=== PATIENT | female | born 1935 | race Caucasian/White ===

== ENCOUNTER → 2016-06-19 | Outpatient (CLI) | payer MEDICARE, MEDICAID ==
[~2016-06-19] MED LIST: ALLOPURINOL100 M1 PO; AMIODARONE HCL200 MG PO; ANTIVERT12.5 MG PO; AUGMENTIN 875-1 EACH PO; CALCITRIOL 00.25 MCG PO; CALCITRIOL0.5 MCG PO; CLONIDINE HCL0.1 M1 PO; COUMADIN2 MG PO; COUMADIN3 M1 PO; COUMADIN4 MG PO; DOXYCYCLINE HY100 M4 PO; FEMARA2.5 MG PO; KEFLEX 500MG.500 MG PO; LASIX 40MG. TAB40 MG PO; LASIX 80MG. TAB80 MG PO; LEVOTHYROXIN0.112 M1 PO; LEVOTHYROXIN0.112 MG PO; LOPRESSOR 25MG.25 MG PO; MECLIZINE HYDRO25 MG PO; MEDROL 4MG. DOSE4 MG PO; METOPROLOL50 MG PO; NOLVADEX20 MG PO; POTASSIUM CHLO10 ME3 PO; PREDNICOT20 MG PO; PROCARDIA XL60 MG PO; SIMVASTATIN10 MG PO; TESSALON PERLE100 M1 PO; TETRACYCLINE H500 M1 PO; VITAMIN D1000 IU PO; WARFARIN SOD5 MG PO; ZITHROMAX 250M250 MG PO; ZYRTEC 10MG TAB10 MG PO
== END ==
LOC: ACC 10:00
DX: I48.91 Unspecified atrial fibrillation (principal); Z79.01 Long term (current) use of anticoagulants; Z51.81 Encounter for therapeutic drug level monitoring
CPT/HCPCS: G0463

== ENCOUNTER 2016-10-23 10:34 | Outpatient (CLI) | payer MEDICARE, MEDICAID | END 2016-10-23 15:51 | LOC: ACC 10:34 | DX: I48.91 Unspecified atrial fibrillation (principal); Z79.01 Long term (current) use of anticoagulants; Z51.81 Encounter for therapeutic drug level monitoring | CPT/HCPCS: G0463 ==

== ENCOUNTER 2017-01-17 12:22 | Outpatient (CLI) | payer MEDICARE, MEDICAID ==
--- NOTE | 2017-01-17 13:38 | RADIOLOGY REPORT PS360 ---
[id number] VIEWS HISTORY: Follow-up fracture FU RT HUMERUS FX ORDERING PHYSICIAN: Tru Leal MD PATIENT AGE: 81 years COMPARISON: 12/27/2016 FINDINGS: Right humeral neck fracture is present. Fracture line is somewhat more prominent than when compared to the previous study with mild separation of the fracture fragments. There is some callus formation developing laterally at the proximal humerus. Chronic deformity of the right glenohumeral joint and acromioclavicular joint is once again noted unchanged. IMPRESSION: Healing right humeral neck fracture with chronic deformity of the glenohumeral joint as before
== END 2017-01-17 15:15 ==
LOC: ACC 12:22
DX: S42.201D Unspecified fracture of upper end of right humerus, subsequent encounter for fracture with routine healing (principal); I48.91 Unspecified atrial fibrillation; Z79.01 Long term (current) use of anticoagulants; Z51.81 Encounter for therapeutic drug level monitoring
CPT/HCPCS: G0463

== ENCOUNTER 2017-02-02 11:20 | Emergency (ER) | payer MEDICARE, MEDICAID ==
[~2017-02-02] VITALS: Ht 152.4 cm; Wt 75.8 kg
--- NOTE | 2017-02-02 11:47 | Urgent Treatment Center Report ---
History of Present Issue Date/Time Seen by Provider 02/02/17 1144 Visit Reason Pt arrived:Wheelchair Presenting Problem:PT ADVISES THAT SHE FELL AT HOME THIS MORNING IN THE BATHROOM AND IS NOW C/O LT ELBOW PAIN Location if Accident:Home Onset of symptoms date/time:/ or onset unknown for:MEDICAL HX UNKNOWN Have you (or family members/close friends) recently traveled outside the [place]? N If Yes, where/when: Have you had exposure to infectious disease within the past month? TB? Other? Specify: Patient state that she was walking backwards this morning in the bathroom on her walker when she tripped and lost her balance falling and landing on left elbow Patient states that she now has a scratch on her elbow area and having pain with movement. State that she has a dialysis shunt in this arm but did not hit it instead landing directly on her left elbow now has pain when she moves it or trys to straighten it out ALLERGIES Coded Allergies: No Known Allergies (02/02/17) Home Medications Active Scripts Amoxicillin/Potassium Clav (Augmentin 875-125 Tablet) 1 EACH PO BID #20 TAB Prov: 07/29/16 Metoprolol Tartrate (Lopressor) 25 MG PO BID #60 TAB Prov: 02/24/14 Reported Medications CLONIDINE HCL (Clonidine 0.1MG) 0.1 MG PO BID Nifedipine (Procardia Xl) 60 MG PO DAILY Simvastatin 10 MG PO QHS POTASSIUM CHL (Potassium Chloride) 10 MEQ PO DAILY ALLOPURINOL (Allopurinol 100MG) 100 MG PO DAILY Levothyroxine Sodium (Levothyroxine 0.112MG) 0.112 MG PO DAILY Calcitriol 0.5 MCG PO DAILY CHOLECALCIFEROL (VITAMIN D3) (Vitamin D3) 2,000 IUNITS PO DAILY Furosemide (Lasix 40MG) 40 MG PO DAILY WARFARIN SOD (Warfarin 5MG) 5 MG PO DAILY Tamoxifen Citrate (Nolvadex) 20 MG PO DAILY History Medical History General CAD? No Angina: No HI: No Hypertension? Yes Hyperlipidemia? Yes CHF? Yes DVT? No PE? No COPD? No Asthma? No Anemia? No GERD? No Gastric ulcers? No GI Bleed? No Hernia? Yes Thyroid Problems? Yes Hypothyroidism? Yes CVA? No Seizures? No Diabetes? No Insulin Dependent: No Insulin Pump: No Home FSBS? No Renal Insuffiency? Yes UTI? Yes Stones? No BPH? No GB Disease: No Nephritic Syndrome? No Asplenia? No Hepatitis? No Sickle Cell Disease? No Arthritis? Yes Migraines? Yes Cataracts? Yes Glaucoma? No MRSA? No HIV? No TB? No Anxiety? Yes Depression? Yes Cancer? Yes Site: R BREAST More? No Additional hx: atrial fibrillation; inoperable aneurysm; valvular dysfunction. 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 CYST REMOVE FROM ABD Appendix LEFT HIP REPAIR FISTULA/SHUNT LT ARM CATARACTS BOTH EYES R MASTECTOMY Family History Family HX Diabetes No CAD No Hypertension Yes Hyperlipidemia Yes Cancer Yes TB No Social History Smoking Hx Smoker: Never Smoker Tobacco: No Alcohol Alcohol: No Review of Systems All Other Systems Reviewed and Negative Comment Pain in left elbow after falling at home this morning in the bathroom Physical Exam Vital Signs Vital Signs Date Time Temp Pulse Resp B/P Pulse O2 O2 Flow FiO2 Ox Delivery Rate 02/02 1132 97.9 79 18 164/70 98 General Appearance normal appearance, no apparent distress Respiratory Status Yes: trachea midline, chest symmetrical. No: respiratory distress. Cardiovascular no JVD, Irregular HR, patient has history of Atrial Fib Defibrilator in place Extremities Pain in left elbow area, dialysis shunt in left upper arm denies hitting the upper arm Neurologic alert, normal exam, oriented x 3 Medical Decision Making LABS/Meds/Orders Pt receiving controlled substance in ED? No Results/Orders Orders Procedure Date/time Status [facility] STABILIZE JOINT/AREA 02/02 1250 Active [facility] STABILIZE JOINT/AREA 02/02 1249 Active XRAY/CT/US XRAY/CT/US XRAY elbow XR interpretation by discussed w/radiologist Xray Results radial head fracture Consult MD Physician Consult 1 Consult/PCP Dr Moreno, orthopedic Time Called 1204 Reason Orthopedic eval/care Comments Dr Moreno in surgery spoke with office staff and advised of patient Physician Consult 2 Consult/PCP Dr Moreno called back advised to place arm in splint and have her follow up Progress [facility] Progress Notes 1 Comment Orthoglass splint placed and patient advised to follow up with Orthopedics today for appointment [facility] Progress Notes 2 Comment Offered patient medication for pain state that she has some at home and she is ok unless she moves arm and does not want anything Departure Departure Time of Disposition 1244 Disposition DC Home or Self Care(routine) Clinical Impression Primary Impression: Radial head fracture Qualifiers: Encounter type: initial encounter Fracture type: closed Fracture alignment: nondisplaced Laterality: left Qualified Code: S52.125A - Nondisplaced fracture of head of left radius, initial encounter for closed fracture Condition STABLE Referrals Elvis CAROLINA,Tru Olvera (Family): 3 Days-Call Office if needed Tez CAROLINA,Grady MORENO MD, [facility] Patient Instructions DI for Fracture Additional Instructions *RICE, Rest the extremity, Ice 15-20 minutes 3-4 times daily, Compress- wear the hussain wrap as discussed as much as possible to help reduce swelling and pain, Elevate the extremity when at rest *Hussain wrap is for support and help control swelling, use it except in the shower. Be sure that is not to tight but not to loose either *Elevate when resting *Ibuprofen 600-800mg every 6-8 hours as needed for pain an inflammation. If need something more can take Tylenol in between doses of Ibuprofen to help Immediately follow up for new or worsening of symptoms, or no noticeable improvement over the next 3-5 days Discharge Counseling Counseled pt/family regarding diagnosis, test results, home care, follow up needs at 1255
--- NOTE | 2017-02-02 11:47 | Urgent Treatment Center Report ---
History of Present Issue Date/Time Seen by Provider 02/02/17 1144 Visit Reason Pt arrived:Wheelchair Presenting Problem:PT ADVISES THAT SHE FELL AT HOME THIS MORNING IN THE BATHROOM AND IS NOW C/O LT ELBOW PAIN Location if Accident:Home Onset of symptoms date/time:/ or onset unknown for:MEDICAL HX UNKNOWN Have you (or family members/close friends) recently traveled outside the [place]? N If Yes, where/when: Have you had exposure to infectious disease within the past month? TB? Other? Specify: Patient state that she was walking backwards this morning in the bathroom on her walker when she tripped and lost her balance falling and landing on left elbow Patient states that she now has a scratch on her elbow area and having pain with movement. State that she has a dialysis shunt in this arm but did not hit it instead landing directly on her left elbow now has pain when she moves it or trys to straighten it out ALLERGIES Coded Allergies: No Known Allergies (02/02/17) Home Medications Active Scripts Amoxicillin/Potassium Clav (Augmentin 875-125 Tablet) 1 EACH PO BID #20 TAB Prov: 07/29/16 Metoprolol Tartrate (Lopressor) 25 MG PO BID #60 TAB Prov: 02/24/14 Reported Medications CLONIDINE HCL (Clonidine 0.1MG) 0.1 MG PO BID Nifedipine (Procardia Xl) 60 MG PO DAILY Simvastatin 10 MG PO QHS POTASSIUM CHL (Potassium Chloride) 10 MEQ PO DAILY ALLOPURINOL (Allopurinol 100MG) 100 MG PO DAILY Levothyroxine Sodium (Levothyroxine 0.112MG) 0.112 MG PO DAILY Calcitriol 0.5 MCG PO DAILY CHOLECALCIFEROL (VITAMIN D3) (Vitamin D3) 2,000 IUNITS PO DAILY Furosemide (Lasix 40MG) 40 MG PO DAILY WARFARIN SOD (Warfarin 5MG) 5 MG PO DAILY Tamoxifen Citrate (Nolvadex) 20 MG PO DAILY History Medical History General CAD? No Angina: No RI: No Hypertension? Yes Hyperlipidemia? Yes CHF? Yes DVT? No PE? No COPD? No Asthma? No Anemia? No GERD? No Gastric ulcers? No GI Bleed? No Hernia? Yes Thyroid Problems? Yes Hypothyroidism? Yes CVA? No Seizures? No Diabetes? No Insulin Dependent: No Insulin Pump: No Home FSBS? No Renal Insuffiency? Yes UTI? Yes Stones? No BPH? No GB Disease: No Nephritic Syndrome? No Asplenia? No Hepatitis? No Sickle Cell Disease? No Arthritis? Yes Migraines? Yes Cataracts? Yes Glaucoma? No MRSA? No HIV? No TB? No Anxiety? Yes Depression? Yes Cancer? Yes Site: R BREAST More? No Additional hx: atrial fibrillation; inoperable aneurysm; valvular dysfunction. 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 CYST REMOVE FROM ABD Appendix LEFT HIP REPAIR FISTULA/SHUNT LT ARM CATARACTS BOTH EYES R MASTECTOMY Family History Family HX Diabetes No CAD No Hypertension Yes Hyperlipidemia Yes Cancer Yes TB No Social History Smoking Hx Smoker: Never Smoker Tobacco: No Alcohol Alcohol: No Review of Systems All Other Systems Reviewed and Negative Comment Pain in left elbow after falling at home this morning in the bathroom Physical Exam Vital Signs Vital Signs Date Time Temp Pulse Resp B/P Pulse O2 O2 Flow FiO2 Ox Delivery Rate 02/02 1132 97.9 79 18 164/70 98 General Appearance normal appearance, no apparent distress Respiratory Status Yes: trachea midline, chest symmetrical. No: respiratory distress. Cardiovascular no JVD, Irregular HR, patient has history of Atrial Fib Defibrilator in place Extremities Pain in left elbow area, dialysis shunt in left upper arm denies hitting the upper arm Neurologic alert, normal exam, oriented x 3 Medical Decision Making LABS/Meds/Orders Pt receiving controlled substance in ED? No Results/Orders Orders Procedure Date/time Status [facility] STABILIZE JOINT/AREA 02/02 1250 Active [facility] STABILIZE JOINT/AREA 02/02 1249 Active XRAY/CT/US XRAY/CT/US XRAY elbow XR interpretation by discussed w/radiologist Xray Results radial head fracture Consult MD Physician Consult 1 Consult/PCP Dr Moreno, orthopedic Time Called 1204 Reason Orthopedic eval/care Comments Dr Moreno in surgery spoke with office staff and advised of patient Physician Consult 2 Consult/PCP Dr Moreno called back advised to place arm in splint and have her follow up Progress [facility] Progress Notes 1 Comment Orthoglass splint placed and patient advised to follow up with Orthopedics today for appointment [facility] Progress Notes 2 Comment Offered patient medication for pain state that she has some at home and she is ok unless she moves arm and does not want anything Departure Departure Time of Disposition 1244 Disposition DC Home or Self Care(routine) Clinical Impression Primary Impression: Radial head fracture Qualifiers: Encounter type: initial encounter Fracture type: closed Fracture alignment: nondisplaced Laterality: left Qualified Code: S52.125A - Nondisplaced fracture of head of left radius, initial encounter for closed fracture Condition STABLE Referrals Elvis CAROLINA,Tru Olvera (Family): 3 Days-Call Office if needed Tez CAROLINA,Grady MORENO MD, [facility] Patient Instructions DI for Fracture Additional Instructions *RICE, Rest the extremity, Ice 15-20 minutes 3-4 times daily, Compress- wear the hussain wrap as discussed as much as possible to help reduce swelling and pain, Elevate the extremity when at rest *Hussain wrap is for support and help control swelling, use it except in the shower. Be sure that is not to tight but not to loose either *Elevate when resting *Ibuprofen 600-800mg every 6-8 hours as needed for pain an inflammation. If need something more can take Tylenol in between doses of Ibuprofen to help Immediately follow up for new or worsening of symptoms, or no noticeable improvement over the next 3-5 days Discharge Counseling Counseled pt/family regarding diagnosis, test results, home care, follow up needs at 1259
--- NOTE | 2017-02-02 12:07 | RADIOLOGY REPORT PS360 ---
ELBOW-LT-3 VIEWS COMPARISON: None HISTORY: Left elbow pain after a fall in the bathroom TECHNIQUE: AP lateral and oblique views FINDINGS: There is generalized osteopenia. There is a fracture of the radial head with only minor displacement. The supracondylar humerus is normal and the olecranon fossa appears normal. IMPRESSION: Radial head fracture along with underlying generalized osteopenia
[2017-02-02 13:31] VITALS: BP 164/70
--- OUTSIDE RECORDS SUMMARY | 2017-02-09 03:58 | External Medical Summary Rpt | CCD ---
Author Author , ANISHA Organization ANISHA Address Unknown Phone [email or web address] Care Team Providers Care Air Technician Name Role Phone A Blessing KENDALL MD PSC, A Unavailable Unavailable Blessing KENDALL MD PSC ATKINS, ATKINS Unavailable Unavailable ATKINS COL, ATKINS Unavailable Unavailable COL ATKINS COL, ATKINS Unavailable Unavailable COL SANJIV LJ, Unavailable Unavailable SANJIV LJ SANJIV LJ, Unavailable Unavailable SANJIV LJ DENNIS ALL, DENNIS ALL Unavailable Unavailable BROWN CAT, BROWN CAT Unavailable Unavailable BUTROS PATITO, BUTROS Unavailable Unavailable PATITO MARC PAOLO, Unavailable Unavailable MARC PAOLO MARC PAOLO, Unavailable Unavailable MARC PAOLO HERMAN DON, HERMAN Unavailable Unavailable DON [facility] [place] [place] [facility] [place] [facility] Unavailable Unavailable [facility]OCIATES, [facility] FIELD AMB, FIELD AMB Unavailable Unavailable FRYMAN, FRYMAN Unavailable Unavailable FRYMAN EUG, FRYMAN Unavailable Unavailable EUG MALCOLM DEANDRE, MALCOLM Unavailable Unavailable DEANDRE [facility], [facility] Unavailable Unavailable INC [facility], [facility] Unavailable Unavailable [facility] Unavailable Unavailable INC, [facility] HARWARD SHASHA, HARWARD Unavailable Unavailable SHASHA [facility], Unavailable Unavailable [facility] SPANGLER, SPANGLER Unavailable Unavailable [facility] Unavailable Unavailable [facility], [facility] KILPELA JEA, KILPELA Unavailable Unavailable JEA KILPECLAUDETTE JEA, KILPELA Unavailable Unavailable VERONICA De Los Santos MD, Unavailable Unavailable Patricia De Los Santos MD [facility] N[facility] Unavailable Unavailable PRACTITIONER GR, [facility] PRACTITION[facility] Unavailable Unavailable LABORATO, [facility] REBEL, REBEL Unavailable Unavailable REBEL JUDY, REBEL Unavailable Unavailable JUDY SATHISH QUILES MAIR, Unavailable Unavailable SATHISH Romero [facility] Unavailable Unavailable ASSOCIAT, [facility] Unavailable Unavailable [facility], [facility] Unavailable Unavailable PSC, [facility] PSC WILKERSON TER, WILKERSON Unavailable Unavailable TER [facility], Unavailable Unavailable PLL[facility], [facility] COLTON FOUZIA, COLTON Unavailable Unavailable FOUZIA COLTON FOUZIA, COLTON Unavailable Unavailable FOUZIA LOISTINYesi, ESVINI Unavailable Unavailable SARTINI J, SARTINI J Unavailable Unavailable SARTINI STEVE, SARTINI Unavailable Unavailable STEVE [facility] Unavailable Unavailable EQUIP. L, [facility] Unavailable Unavailable EQUIP. L, [facility] Un[facility], Unavailable Unavailable [facility] STONE, STONE Unavailable Unavailable STONE LIBRADO, STONE LIBRADO Unavailable Unavailable [facility] Unavailable Unavailable [facility], [facility] Unavailable Unavailable ASSOCIATES P, [facility], Unavailable Unavailable [facility] MCDANIELS, MCDANIELS Unavailable Unavailable MCDANIELS BRITTNEY, MCDANIELS BRITTNEY Unavailable Unavailable MCDANIELS BRITTNEY, MCDANIELS BRITTNEY Unavailable Unavailable WELLS FREYA, JUDITH FREYA Unavailable Unavailable WEST ST[facility], [facility] Unavailable Unavailable KENDALL A, KENDALL A Unavailable Unavailable KENDALL, A C, KENDALL, Unavailable Unavailable A C Purpose Continuity of Care Document - 02-03-2008 through 2016 Problems Code Diagnosis DOS Provider Status N184 CHRONIC 11-01-2016 [facility] STAGE 4 SEVERE [id number] STENOSIS 11-01-2016 [facility] PROSTH [facility]VC IMPL [facility]OC[facility] & GRAFT INIT ENC I4891 UNSPECIFIED 10-23-2016 [facility] ATRIAL [facility] FIBRILLATIO INC N Z5181 ENCOUNTER 10-23-2016 [facility] FOR [facility] THERAPEUTIC INC DRUG LEVEL MONITORING Z7901 PRISON 10-23-2016 [facility] CURRENT USE [facility] OF INC ANTICOAGULA NTS E039 HYPOTHYROID 09-08-2016 [facility] ISM PHYSICIANS UNSPECIFIED GROUP N189 CHRONIC 09-08-2016 [facility] KIDNEY PHYSICIANS DISEASE GROUP UNSPECIFIED N289 DISORDER OF 09-08-2016 [facility] KIDNEY AND PHYSICIANS URETER GROUP UNSPECIFIED B79363 OTHER LONG 09-08-2016 [facility] TERM [facility] CURRENT INC DRUG THERAPY Z61711 MALIGNANT 08-17-2016 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 U32424 PRISON 08-17-2016 NEW [facility] PSC RECEPTOR MODULATORS E785 HYPERLIPIDE 08-01-2016 [facility] ZANDER PHYSICIANS UNSPECIFIED GROUP I10 ESSENTIAL 08-01-2016 [facility] PRIMARY PHYSICIANS HYPERTENSIO GROUP N L299 PRURITUS 08-01-2016 [facility] UNSPECIFIED PHYSICIANS GROUP I517 CARDIOMEGAL 07-29-2016 [facility] J069 ACUTE UPPER 07-29-2016 [facility] INFECTION UNSPECIFIED R0981 NASAL 07-29-2016 [facility] I129 HYPERTENSIV 07-03-2016 [facility] CKD SERV W/STAGE 1-4 FOUNDATION CKD OR UNS CKD I509 HEART 07-03-2016 [facility] FAILURE [facility] UNSPECIFIED [facility]OUNDATION M810 AGE-RELATED 07-03-2016 [facility] OSTEOPOROSI [facility] S W/O CURRNT PATH FX N183 CHRONIC 07-03-2016 [facility] DISEASE [facility] STAGE 3 MODERATE N250 RENAL 07-03-2016 [facility] OSTEODYSTRO SERV PHY [facility] I272 OTHER 06-01-2016 [facility] PSC HYPERTENSIO N 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 [facility] PSC DISORDER UNSPECIFIED I482 CHRONIC 06-01-2016 NEW ATRIAL [facility] FIBRILLATIO [facility]IC [facility] N R931 ABNORMAL 06-01-2016 NEW FINDINGS ON [facility] DX [facility] PSC HEART & COR CIRC R0602 SHORTNESS 05-24-2016 [facility] OF BREATH [facility] INC R05 COUGH 02-12-2016 [facility] R079 CHEST PAIN 02-12-2016 [facility]PEC[facility]IED [facility] Z23 ENCOUNTER 02-10-2016 NEW FOR [facility] IMMUNIZATIO CLINIC PSC N E8770 FLUID 12-13-2015 [facility] OVERLOAD SERV UNSPECIFIED FOUNDATION H109 UNSPECIFIED 12-06-2015 [facility] PHYSICIANS CONJUNCTIVI GROUP TIS D649 ANEMIA 12-01-2015 [facility] UNSPECIFIED MEM [facility] INC E559 VITAMIN D 12-01-2015 [facility] DEFICIENCY [facility] UNSPECIFIED INC N186 END STAGE 10-27-2015 [facility] Z992 DEPENDENCE 10-27-2015 [facility] X43000 MALIGNANT 08-26-2015 [facility] NEOPLASM UNS SITE UNS FEMALE BREAST J209 ACUTE 05-27-2015 [facility] BRONCHITIS PHYSICIANS UNSPECIFIED GROUP R7881 BACTEREMIA 05-27-2015 [facility] J441 CHRONIC 05-24-2015 [facility] OBSTRUCTIVE PHYSICIANS PULMONARY GROUP DZ W/EXACERBAT ION R0902 HYPOXEMIA 05-24-2015 [facility] J440 COPD WITH 05-21-2015 [facility] ACUTE LOWER [facility] INC RESPIRATORY INFECTION J302 OTHER 02-14-2015 [facility] SEASONAL [facility] ALLERGIC INC RHINITIS R42 DIZZINESS 02-14-2015 [facility] AND [facility] GIDDINESS INC 1749 MALIGNANT 11-17-2014 [facility] NEOPLASM OF BREAST UNSPECIFIED SITE 2330 CARCINOMA 11-16-2014 NEW IN SITU OF [facility] PSC 2724 OTHER AND 11-11-2014 [facility] UNSPECIFIED HOSPITAL HYPERLIPIDE ZANDER 78981 ATRIAL 11-11-2014 [facility] FIBRILLATIO [facility] N 4280 CONGESTIVE 11-11-2014 [facility] FAILURE UNSPECIFIED 490 BRONCHITIS 11-11-2014 [facility] SPECIFIED ACUTE OR CHRONIC 49197 UNSPECIFIED 11-11-2014 [facility] ARTHROPATHY SITE UNSPECIFIED 60158 UNSPECIFIED 11-11-2014 [facility] OSTEOPOROSI S V5869 LONG-TERM 11-11-2014 [facility] (CURRENT) HOSPITAL USE OF OTHER MEDICATIONS 4011 ESSENTIAL 11-03-2014 NEW HYPERTENSIO [facility] N, BENIGN [facility]IN[facility] PSC 7823 EDEMA 11-03-2014 NEW [facility] PSC 7852 UNDIAGNOSED 11-03-2014 NEW CARDIAC [facility] 51080 SHORTNESS 11-03-2014 NEW OF BREATH [facility] PSC V5861 LONG-TERM 11-03-2014 NEW (CURRENT) [facility] USE OF CLINIC [facility] ANTICOAGULA NTS V6751 F/U EXAM 11-03-2014 NEW FOLLOW CMPL [facility] PSC W/HIGH-RISK MED NEC 30855 LUMP OR 10-07-2014 [facility] MASS IN MEM [facility] BREAST INC 95359 OTHER 10-07-2014 [facility] ABNORMAL [facility]ICAL FINDING [facility]AGING ASS RADIOLOGICA L EXAM BREAST V5883 ENCOUNTER 08-18-2014 Natacha LOPEZ MD [facility] THERAPEUTIC DRUG MONITORING 82095 OTHER 06-09-2014 [facility] NONSPECIFIC MEDICAL ABNORMAL IMAGING ASS FINDING OF LUNG FIELD V4611 DEPENDENCE 06-09-2014 [facility] RESPIRATOR IM[facility]ING ASS STATUS 55711 ALTERED 06-08-2014 [facility] MENTAL MEDICAL STATUS IMAGING ASS V5882 ENCOUNTER 06-08-2014 [facility] FITTING&ADJ [facility]ICAL [facility]ING [facility] NON-VASCULA R CATHETER NEC 486 PNEUMONIA, 06-04-2014 [facility] ORGANISM MEDICAL UNSPECIFIED IMAGING ASS 49918 HTN CKD UNS 06-03-2014 [facility] W/CKD [facility] STAGE I INC THRU STAGE IV/UNS 45982 CORONARY 06-03-2014 [facility] 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 4820 PNEUMONIA 06-03-2014 [facility] DUE TO MEM HOS[facility] KLEBSIELLA INC PNEUMONIAE 20017 ACUTE 06-03-2014 [facility] RESPIRATORY [facility] FAILURE INC 5849 ACUTE 06-03-2014 [facility] KIDNEY [facility] FAILURE INC UNSPECIFIED 5854 CHRONIC 06-03-2014 [facility]NEY [facility] DISEASE INC STAGE IV (SEVERE) 7862 COUGH 06-03-2014 [facility] 7869 OTH 06-03-2014 [facility] SYMPTOMS MEDICAL INVOLVING IMAGING ASS RESPIRATORY SYSTEM&CHES T [address]791 UNSPECIFIED 02-22-2014 [facility] VENOUS [facility] INSUFFICIEN INC CY 5939 UNSPECIFIED 02-22-2014 [facility] DISORDER N EMERGENCY OF KIDNEY PHYS AND URETER 7079 CHRONIC 02-22-2014 [facility] ULCER OF MEM HOSP UNSPECIFIED INC SITE 6829 CELLULITIS 01-23-2014 A Blessing KENDALL AND ABSCESS PSC OF UNSPECIFIED SITE 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 7804 DIZZINESS 03-30-2013 JUDITH PILLAI AND PAMELA 70744 ULCER OF 01-29-2013 [facility] CALF [facility] INC V571 OTHER 01-29-2013 [facility] THERAPY INC 92655 NUCLEAR 01-21-2013 [place] [address] DIAB W/O 12-18-2012 A Blessing KENDALL COMP TYPE PSC II/UNS NOT STATED UNCNTRL 2449 UNSPECIFIED 11-11-2012 Natacha KENDALL MD [facility] HYPOTHYROID ISM 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 KILPELA JEA HYPERLIPIDE ZANDER 7295 PAIN IN 05-16-2012 [facility] SOFT [facility] TISSUES OF INC LIMB 14118 SWELLING OF 05-16-2012 MARC LIMB PAOLO 4829 UNSPECIFIED 05-03-2012 KILPECLAUDETTE BELLEA BACTERIAL PNEUMONIA 4619 ACUTE 02-16-2012 [facility] SINUSITIS, MEM HOSP UNSPECIFIED INC 70376 JAW PAIN 02-16-2012 [facility] INC 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 L SITE 86126 OTHER 07-07-2010 [facility] MALAISE AND HOME MED FATIGUE EQUIP. L 7812 ABNORMALITY 07-07-2010 [facility] OF GAIT HOME MED EQUIP. L 9961 MECH COMP 06-20-2010 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 V7281 PRE-OPERATI 12-07-2009 NEW VE [facility] CARDIOVASCU CLINIC [facility] LAR EXAMINATION V7283 OTHER 12-01-2009 [facility] SPECIFIED SURGICAL PRE-OPERATI ASSOCIATES VE EXAMINATION 12188 HYPERPARATH 11-30-2009 [facility] YROIDISM PRIMARY UNSPECIFIED CARE [facility]YLER 5853 CHRONIC 11-05-2009 [facility]NEY [facility] DISEASE INC STAGE III (MODERATE) 586 UNSPECIFIED 11-05-2009 [facility]ICAL FAILURE IMAGING ASS 4409 GENERALIZED 11-02-2009 MEANS ADULT AND PRIMARY UNSPECIFIED CARE [facility] ATHEROSCLER OSIS 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 LEG&ANK WITHOUT MENTION COMP 4536 VENOUS EMBO 07-22-2009 [place] [facility] SUPERFICIAL VES LOWR EXTREM 8911 OPEN WOUND 07-22-2009 [facility] LEG HOSPITAL AND ANKLE COMPLICATED 70028 COMPLETE 06-07-2009 [place] [facility] RUPTURE OF SERV ROTATOR FOUNDATIO CUFF 97248 ULCER OF 05-27-2009 [facility] UNSPECIFIED 75666 SENILE 05-14-2009 [facility] OSTEOPOROSI MEM HOSP S INC 6959 UNSPECIFIED 05-13-2009 [facility] ERYTHEMATOU S CONDITION 13795 ULCER OF 04-01-2009 [place] [facility] SSD 4659 ACUTE URIS 02-03-2008 Natacha JO PSC UNSPECIFIED SITE Allergies, Adverse Reactions, Alerts Type Drug Allergy Adverse Reaction to Substance Substance Reaction Severity No Known Allergies - Unknown Unknown Nka Medications Na ND Rx Da Fi Fi Am Da Di Ph RX Ph St me C No te ll ll ou ys ag ar # ys at rm s nt no ma ic us Or Da si cy ia de te s n re d SO 00 12 0 No DI 40 -0 UM 97 1- Lo 98 20 ng CH 30 13 er LO 9 RI Ac DE ti ve 0. 9% SO MAYNOR TI ON Sa 63 12 0 No li 80 -0 ne 70 1- Lo 10 20 ng Fl 07 13 er us 5 h Ac 10 ti ML ve Sy ri ng e Immunization Name Date Rout CVX Reac Dose Comm Prov Is Faci e tion ent ider Refu lity Give sed n IIV4 10-1 158 LIDD No NEW 3-20 LE NAFISA VACC 16 JUDY NGTO N SPLI CLIN T IC VIRU PSC S 0.5 ML DOS FOR IM USE Vital Signs 03-30-2013 12:31 Name Value Interpretat Reference Comment ion Range BP 93 mm[Hg] Diastolic BP Systolic 170 mm[Hg] Heart 58 /min Rate/Pulse O2% 99 % Respiratory 20 /min Rate 03-30-2013 09:44 Name Value Interpretat Reference Comment ion Range BP 57 mm[Hg] Diastolic BP Systolic 119 mm[Hg] Heart 65 /min Rate/Pulse O2% 98 % Respiratory 20 /min Rate Results Labs Lab Lab Date Result Refere Interp Status Commen Order Detail nces retati t Range on BASIC METABOLIC PANEL (03-30-2013 09:40) Glucose 115 74-106 complet 013 mg/dL ed Bld-mCn 09:40 c BUN 33 7-18 complet Bld-mCn 013 mg/dL ed c 09:40 Creat 2.1 0.6-1.0 complet SerPl-m 013 mg/dL ed Cnc 09:40 Creat 30 50-200 complet Cl 013 ML/MIN ed predict 09:40 ed SerPl C-G-vRa te GFR/BSA 23 59- complet .pred 013 ML/MIN ed SerPl 09:40 Schwart z-vRate Sodium 142 136-145 complet SerPl-s 013 mmoL/L ed Cnc 09:40 Potassi 4.3 3.5-5.1 complet um 013 mmoL/L ed SerPl-s 09:40 Cnc Chlorid 106 98-107 complet e 013 mmoL/L ed SerPl-s 09:40 Cnc CO2 32 21.0-32 complet SerPl-s 013 mmoL/L .0 ed Cnc 09:40 Calcium 8.0 8.5-10. complet 013 mg/dL 1 ed SerPl-m 09:40 Cnc CBC with AUTO DIFF (03-30-2013 09:40) WBC # 03-30-2 3.9 4.8-10. complet Bld 013 K/MM3 8 ed Auto 09:40 RBC # 03-30-2 3.85 4.2-5.4 complet Bld 013 M/mm3 ed Auto 09:40 Hgb 11.4 12.2-16 complet Bld-mCn 013 g/dL .2 ed c 09:40 Hct Fr 36.6 % 37.0-47 complet Bld 013 .0 ed 09:40 MCV RBC 95.0 fl 82.2-97 complet 013 .8 ed 09:40 MCH RBC 29.6 pg 27-31.2 complet Qn 013 ed Auto 09:40 MEAN 31.2 31.8-35 complet CORPUSC 013 g/dl .4 ed ULAR 09:40 HGB CONC RDW RBC 17.9 % 11.5-17 complet Auto 013 .5 ed 09:40 Platele 234 142-424 complet t Bld 013 K/mm3 ed Ql 09:40 Manual MEAN 12-01-2 7.6 fl 7.4-10. complet PLATELE 013 4 ed T 09:40 VOLUME Granulo 64.4 % 37.0-80 complet cytes 013 .0 ed Fr Bld 09:40 Auto LYMPH % 03-30-2 27.4 % 10-50.0 complet 013 ed 09:40 Monocyt 03-30-2 6.3 % 1.7-9.3 complet es Fr 013 ed Bld 09:40 Auto Eosinop 03-30-2 1.6 % 0.1-12. complet hil Fr 013 0 ed Bld 09:40 Auto Basophi 2 0.3 % 0.1-2.0 complet ls Fr 013 ed Bld 09:40 Auto Granulo 03-30-2 2.5 1.8-7.8 complet cytes # 013 K/mm3 ed Bld 09:40 Auto Lymphoc 2 1.1 0.7-4.5 complet ytes Fr 013 K/mm3 ed Bld 09:40 Auto Monocyt 03-30-2 0.3 0.1-1.0 complet es # 013 K/mm3 ed Bld 09:40 Auto Eosinop 03-30-2 0.1 0.0-0.4 complet hil # 013 K/mm3 ed Bld 09:40 Auto Basophi 03-30-2 0.0 0-0.2 complet ls # 013 K/MM3 ed Bld 09:40 Auto Procedures Procedure DOS Code Location Performer Comment DUPLEX 55584 MAY DICKERSON SCAN 7 SURGICAL HEMODIALY ASSOCIATE SIS S ACCESS PROTHROMB 36182 [facility] IN TIME 7 [facility] INC INC HOSPITAL G0463 [facility] OUTPATIEN 7 [facility] T CLIN INC INC VISIT ASSESS & MGMT PT HOSPITAL G0463 [facility] OUTPATIEN 7 [facility] T CLIN INC INC VISIT ASSESS & MGMT PT PROTHROMB 46847 [facility] IN TIME 7 [facility] INC INC BLOOD 25909 [facility] COUNT 7 [facility]OS[facility] COMPLETE INC INC AUTO&AUTO DIFRNTL WBC COMPREHEN 39336 [facility] SIVE 7 [facility] [place] [address] [facility] NICHOLEON FREE 7 [facility] [place] [address] [facility] THYROID 7 [facility] STIMULATI INC INC NG HORMONE TSH LIPID 03068 [facility] PANEL 7 [facility] INC INC PROTHROMB 77072 [place] IN TIME 7 [facility]IC CLINIC LABORATO LABORATO COLLECTIO 78618 [place] N VENOUS 7 CLINIC CLINIC BLOOD LABORATO LABORATO VENIPUNCT URE BLOOD 74613 [place] COUNT 7 CLINIC CLINIC COMPLETE LABORATO LABORATO AUTO&AUTO DIFRNTL WBC COMPREHEN 93019 [place] SIVE 7 CLINIC CLINIC METABOLIC LABORATO LABORATO PANEL RADIOLOGI 06495 [facility] C 7 [facility] EXAMINATI INC INC ON CHEST [facility] [facility] G0463 [facility] OUTPATIEN 7 MEM [facility] MEM [facility]OS[facility] T CLIN INC INC VISIT ASSESS & MGMT PT PROTHROMB 10230 [facility] IN TIME 7 [facility]OS[facility] INC INC COLLECTIO 33237 [facility] N VENOUS 7 MEM H[facility] MEM [facility]OS[facility] BLOOD INC INC VENIPUNCT URE BLOOD 19627 [facility] COUNT 7 [facility] MEM [facility]OS[facility] COMPLETE INC INC AUTO&AUTO DIFRNTL WBC CALCIUM 20366 [facility] IONIZED 7 [place] [address] [facility] PARATHORM 7 MEM H[facility] ONE INC INC RENAL 26948 [facility] FUNCTION 7 [facility] PANEL INC INC 25 74075 [facility] HYDROXY 7 MEM H[facility] INCLUDES INC INC FRACTIONS IF PERFORMED HOSPITAL G0463 [facility] OUTPATIEN 7 MEM H[facility] MEM HOS[facility] T CLIN INC INC VISIT ASSESS & MGMT PT PROTHROMB 11452 [facility] IN TIME 7 [facility] MEM HOSP INC INC PROTHROMB 43738 [facility] IN TIME 7 [facility] INC INC HOSPITAL G0463 [facility] OUTPATIEN 7 MEM H[facility] MEM [facility]OS[facility] T CLIN INC INC VISIT ASSESS & MGMT PT ECHO 59019 [facility] TTHRC R-T 7 MEM HOSP MEM HOS[facility] 2D INC INC W/WOM-MOD E COMPL SPEC&COLR D LIPID 12057 ROBYN [facility] PANEL 7 [place] [address] [place] [facility] TROPONIN 7 MEM H[facility] MEM [facility]OS[facility] QUANTITAT INC INC EMILIA PROTHROMB 86628 [facility] IN TIME 7 [facility] INC INC CREATINE 61423 [facility] KINASE 7 MEM HOSP MEM HOSP TOTAL INC INC BLOOD 16654 [facility] COUNT 7 MEM H[facility] COMPLETE INC INC AUTO&AUTO DIFRNTL WBC COMPREHEN 50512 ROBYNSADIA CARLS[facility] SIVE 7 MEM HOSP MEM HOSP METABOLIC INC INC PANEL CREATINE 31670 [facility] KINASE MB 7 MEM HOSP [place] [address] [facility] THYROID 7 [facility] STIMULATI INC INC NG HORMONE TSH COLLECTIO 38643 ROBYN ROBYN N VENOUS 7 [facility] [place] [address] ROB[facility] FREE 7 MEM HOSP MEM HOSP THYROXINE INC INC PROTHROMB 03868 ROBYN NICHOLEON IN TIME 6 MEM HOSP MEM HOSP INC INC HOSPITAL G0463 ROB[facility] CAR[facility] OUTPATIEN 6 MEM HOSP MEM HOSP T CLIN INC INC VISIT ASSESS & MGMT PT HOSPITAL G0463 ROBYN ROBNY OUTPATIEN 6 MEM HOSP MEM HOSP T CLIN INC INC VISIT ASSESS & MGMT PT PROTHROMB 42144 [facility] IN TIME 6 MEM H[facility] MEM HOSP INC INC ECG 48585 NEW NEW ROUTINE 6 [facility] CLINIC CLINIC W/LEAST PSC PSC 12 [facility] G0463 [facility] OUTPATIEN 6 MEM HOSP MEM [facility]OS[facility] T CLIN INC INC VISIT ASSESS & MGMT PT PROTHROMB 06229 [facility] IN TIME 6 MEM H[facility]OS[facility] INC INC RADIOLOGI 45956 ASHKAN TRAN C 6 MEDICAL PAOLO EXAMINATI IMAGING ON CHEST ASS SINGLE VIEW FRONTAL IIV4 VACC 31855 NEW REBEL SPLIT 6 DENAE JUDY VIRUS 0.5 CLINIC ML DOS PSC FOR IM USE PROTHROMB 62412 DENAE PHILIPPE IN TIME 6 CLINIC CLINIC LABORATO LABORATO ADMINISTR G0008 NEW REBEL ATION OF 6 [place] JUDY INFLUENZA CLINIC VIRUS PSC VACCINE COLLECTIO 47350 [facility] PHILIPPE N VENOUS 6 CLINIC CLINIC BLOOD LABORATO LABORATO VENIPUNCT URE COMPREHEN 23298 [facility] PHILIPPE SIVE 6 CLINIC CLINIC METABOLIC LABORATO LABORATO PANEL BLOOD 45608 DENA[facility] PHILIPPE COUNT 6 CLINIC [facility] COMPLETE LABORATO LABORATO AUTO&AUTO DIFRNTL WBC PROTHROMB 79959 [facility] [id number] [facility] OUTPATIEN 6 [facility] VISIT ASSESS & MGMT PT HOSP[facility] G0463 [facility] OUTPATIEN [facility] INC VISIT ASSESS & MGMT PT PROTHROMB [id number] [facility] IN TIME 6 [facility] INC BREAST L8000 GROGANS GROGANS PROS 6 INC INC MASTECTOM Y BRA W/O INTEG PROS FORM PROTHROMB 77830 [facility] IN TIME 6 [facility] G0463 [facility] OUTPATIEN 6 [facility] INC VISIT ASSESS & MGMT PT LIPID 89689 [facility] PANEL [facility] INC PROTHROMB 07918 [facility] IN TIME 6 [facility] INC COLLECTIO 51213 [facility] N VENOUS 6 [facility] [place] [address] [facility] THYROID 6 [facility] STIMULATI INC INC NG HORMONE TSH BLOOD 61820 [facility] COUNT 6 [facility] COMPLETE INC INC AUTO&AUTO DIFRNTL WBC COMPREHEN 11849 [facility] SIVE 6 [facility] [place] [address] [facility] FREE 6 [facility] [place] [address] [facility] BLOOD/URI 6 [facility] C ACID INC INC CALCIUM 47860 [facility] IONIZED 6 [facility] INC INC CREATININ 19063 [facility] E OTHER 6 [facility] SOURCE INC INC COLLECTIO 27359 [facility] N VENOUS 6 [facility] BLOOD INC INC VENIPUNCT URE CULTURE 12228 [facility] BACTERIAL 6 [facility] INC INC QUANTTATI VE COLONY COUNT URINE [facility] G0463 [facility] OUTPATIEN 6 [facility] T CLIN INC INC VISIT ASSESS & MGMT PT PROTHROMB 16016 [facility] IN TIME 6 [place] [address] [facility] PARATHORM 6 [facility] ONE INC INC PROTEIN 20598 [facility] XCPT 6 [facility] REFRACTOM INC INC ETRY SERUM PLASMA/WH L BLD BLOOD 33587 [facility] COUNT 6 [facility] COMPLETE INC INC AUTO&AUTO DIFRNTL WBC URNLS DIP 85678 [facility] 6 [facility] STICK/TAB INC INC LET REAGENT AUTO MICROSCOP Y RENAL 34981 ROBYN [facility] PANEL INC INC 25 [id number] ROB[facility] HYDROXY 6 [facility] INCLUDES INC INC FRACTIONS IF PERFORMED HOSPITAL G0463 [facility] OUTPATIEN 6 [facility]IN INC INC VISIT ASSESS & MGMT PT PROTHROMB 90365 [facility] IN TIME 6 [facility] INC INC DXA BONE 72562 ROB[facility] DENSITY 6 [facility] STUDY 1/> INC INC SITES AXIAL SKEL DUPLEX 52162 [facility] 6 SURGICAL SURGICAL HEMODIALY ASSOCIATE ASSOCIATE [facility] G0463 ROBYN [facility] OUTPATIEN 6 [facility] T CLIN INC INC VISIT ASSESS & MGMT PT PROTHROMB 75545 [facility] IN TIME 6 [facility] INC INC PROTHROMB 86443 [facility] IN TIME 6 [facility] INC INC BLOOD 03455 [facility] COUNT 6 [facility] COMPLETE INC INC AUTO&[place] [address] [facility] THYROXINE 6 [facility] TOTAL INC INC COMPREHEN 68536 [facility] SIVE 6 [facility] METABOLIC INC INC PANEL COLLECTIO 09214 ROB[facility] N VENOUS 6 [facility] [place] [address] ROB[facility] THYROID 6 [facility] STIMULATI INC INC NG HORMONE TSH LIPID 28608 ROBYN [facility] PANEL 6 [facility] INC INC 1 25 02970 ROBYN [facility] DIHYDROXY 6 [facility] INCLUDES INC INC FRACTIONS IF PERFORMED HOSPITAL G0463 ROB[facility] OUTPATIEN 6 [facility] T CLIN INC INC VISIT ASSESS & MGMT PT PROTHROMB 89958 [facility] IN TIME 6 [facility] INC INC PROTHROMB 38613 [facility] IN TIME 6 [facility] INC INC HOSPITAL G0463 ROBYN [facility] OUTPATIEN 6 [facility] T CLIN INC INC VISIT ASSESS & MGMT PT 25 20869 DENA[facility] PHILIPPE HYDROXY 6 CLINIC CLINIC INCLUDES LABORATO LABORATO FRACTIONS IF PERFORMED BREAST L8030 [facility] PROSTH 6 INC INC SILICONE/ EQUAL W/O INTEGRAL ADHES PROTHROMB 11687 [facility] PHILIPPE IN TIME 6 CLINIC CLINIC LABORATO LABORATO COLLECTIO 03045 [facility] PHILIPPE N VENOUS 6 CLINIC CLINIC BLOOD LABORATO LABORATO VENIPUNCT URE COMPREHEN 72949 [facility] PHILIPPE SIVE 6 CLINIC CLINIC METABOLIC [facility]O [facility]ORATO PANEL BLOOD 94112 [place] COUNT 6 CLINIC CLINIC COMPLETE LABORATO LABORATO AUTO&AUTO DIFRNTL WBC BREAST L8000 [facility] PROS 6 INC INC MASTECTOM Y BRA W/O INTEG PROS FORM PROTHROMB 17802 [facility] IN TIME 6 [facility] INC INC PROTHROMB 01055 [facility] IN TIME 6 [facility] INC INC HOSPITAL G0463 ROBYN ROBYN OUTPATIEN 6 [facility] T CLIN INC INC VISIT ASSESS & MGMT PT HOSPITAL G0463 ROBYN ROBYN OUTPATIEN 6 [facility] T CLIN INC INC VISIT ASSESS & MGMT PT PROTHROMB 47361 [facility] IN TIME 6 [facility] INC INC NURSING 62290 [facility] 6 PHYSICIAN EUG DISCHARGE S GROUP MANAGEMEN T 30 MINUTES SBSQ 22171 [place] [address] PHYSICIAN EUG FACILITY S GROUP CARE/DAY E/M STABLE 10 MIN INITIAL 06151 [facility] 6 PHYSICIAN DEANDRE FACILITY S GROUP CARE/DAY 35 MINUTES HOSPITAL 08595 [facility] 6 PHYSICIAN DEANDRE DAY S GROUP MANAGEMEN T 30 MIN/< SBSQ 15347 [facility] 6 PHYSICIAN EUG CARE/DAY S GROUP 15 MINUTES SBSQ 38441 [facility] 6 PHYSICIAN DEANDRE CARE/DAY S GROUP 15 MINUTES INITIAL 49931 [facility] 6 PHYSICIAN DEANDRE CARE/DAY S GROUP 50 MINUTES RADIOLOGI 86062 [place] DENNIS ALL C 6 MEDICAL EXAMINATI IMAGING ON CHEST ASS SINGLE VIEW FRONTAL PHYSICAL 41217 [facility] THERAPY [address] [place] [address] EVALUATIO N EXT BRST L8015 [facility] PROS 5 INC INC GARMNT W/MASTECT FORM POST-MAST ECT THERAPEUT 46925 [facility] IC PX 1/> 5 HOSPITAL HOSPITAL AREAS EACH 15 MIN EXERCISES NONCOVERE A9270 [facility] ITEM OR [address] [place] [address] HOSPITAL SERVICE NONCOVERE A9270 [facility] ITEM OR 5 [facility] HOSPITAL SERVICE IMHISTOCH 10088 [facility] EM/CYTCHM 5 [facility] 1ST CLINIC CLINIC ANTIBODY PSC PSC STAIN PROCEDURE ECG 36090 [facility] ROUTINE 5 [facility] ECG CLINIC CLINIC W/LEAST PSC PSC 12 LDS W/I&R DUP-SCAN 70788 [facility] [place] XTR VEINS [address] COMPLETE CLINIC PSC BILATERAL STUDY ECHO 36740 [place] TTHRC R-T 5 [facility] STEVE 2D CLINIC W/WOM-MOD PSC E COMPL SPEC&COLR D RADIOLOGI 50091 [facility] C EXAM 5 [facility] CHEST 2 CLINIC VIEWS PSC FRONTAL&L ATERAL BX BREAST 53784 [place] MARC W/DEVICE 5 MEDICAL [facility]OL[facility] 1ST IMAGING LESION ASS ULTRASOUN D GUID US BREAST 79396 ROBYN [facility] UNI REAL 5 [facility] TIME INC INC WITH IMAGE COMPLETE US BREAST 14984 [facility] UNI REAL 5 MEDICAL MEDICAL TIME IMAGING IMAGING WITH ASS ASS IMAGE LIMITED RADIOLOGI 02879 [place] MARC C 5 MEDICAL PAOLO EXAMINATI IMAGING ON CHEST ASS SINGLE VIEW FRONTAL RADIOLOGI 58664 [place] MARC C 5 MEDICAL [place]OL[place] EXAMINATI IMAGING [place] [address] [place] MARC HEAD/BRAI 5 MEDICAL PAOLO N W/O IMAGING CONTRAST ASS MATERIAL INSERTION 9604 ROBYN [facility] OF 5 [facility] ENDOTRACH INC INC EAL TUBE CONT 9671 ROBYN [facility] INVASIVE 5 [facility] MECH VENT INC INC < 96 CONSECUTI VE HOURS RADIOLOGI 48051 [place] MARC C 5 MEDICAL PAOLO EXAMINATI IMAGING ON CHEST ASS SINGLE VIEW FRONTAL RADIOLOGI 84118 [place] MARC C 5 MEDICAL PAOLO EXAMINATI IMAGING ON CHEST ASS SINGLE VIEW [facility] 03948 A C A C DISCHARGE 4 ENOCH KENDALL MD DAY [facility] PSC MANAGEMEN T 30 MIN/< ECG 74826 [facility] ROUTINE 4 [facility] ECG EMERGENCY EMERGENCY W/LEAST PHYS PHYS 12 LDS I&R ONLY INJ J0702 KILPELA KILPELA BETAMETHA 4 VERONICA MARTIN SONE ACETATE & PHOSPHATE 3 MG INJECTION J1030 KILPELA KILPELA 4 VERONICA MARTIN METHYLPRE DNISOLONE ACETATE 40 MG THERAPEUT 77210 KILPELA KILPELA IC 4 JENatacha MARTIN PROPHYLAC TIC/DX INJECTION SUBQ/IM ECG 35617 ROBYN [facility] ROUTINE 3 [facility] ECG INC INC W/LEAST 12 LDS TRCG ONLY W/O I&R ECG 53981 JUDITH PILLAI JUDITH PILLAI ROUTINE 3 ECG W/LEAST 12 LDS I&[place] [address] ROBYN CARLSON INFUSION 3 [facility] HOSP THERAPY/P INC INC ROPHYLAXI S /DX 1ST TO 1 HR DEBRIDEME 43372 ROBYN CARLSON NT OPEN 3 [facility] HOSP WOUND 20 INC INC SQ CM/< DEBRIDEME 02046 ROBYN CAR[facility]ON NT OPEN 3 [facility] WOUND INC INC EACH ADDITIONA L 20 SQ CM DEBRIDEME 60952 ROBYN CARLSON NT OPEN 3 [facility] WOUND INC INC EACH ADDITIONA L 20 SQ CM DEBRIDEME 62354 ROBYN CAR[facility]ON NT OPEN 3 [facility] WOUND INC INC EACH ADDITIONA L 20 SQ CM DEBRIDEME 42716 ROBYN CARLSON NT OPEN 3 [facility] WOUND INC INC EACH ADDITIONA L 20 SQ CM PHYSICAL 33073 ROBYN CARLSON THERAPY 3 [facility] HOSP EVALUATIO INC INC N CATARACT 90468 [facility] REMOVAL 3 LJ LJ INSERTION OF LENS CATARACT 41372 [facility] REMOVAL 3 LJ LJ INSERTION OF LENS DUP-SCAN 01329 ROBYN CARLSON XTR VEINS 3 [facility] INC INC UNILATERA L/LIMITED STUDY DUPLEX 74725 ATKINS ATKINS SCAN 3 COL COL HEMODIALY SIS ACCESS THERAPEUT 44073 A C KILABRILLA IC 2 ENOCH MARTIN PROPHYLAC PSC TIC/DX INJECTION SUBQ/IM INJECTION J1030 A C ARSENIOPELA 2 ENOCH CAROLINA JENatacha METHYLPRE PSC DNISOLONE ACETATE 40 MG INJ J0702 A C A C BETAMETHA 2 ENOCH KENDALL MD SONE PSC PSC ACETATE & PHOSPHATE 3 MG INJECTION J0696 A C A C 2 ENOCH KENDALL MD CEFTRIAXO PSC PSC NE SODIUM PER 250 MG THERAPEUT 93387 A Blessing CHEEMA IC 2 ENOCH MARTIN PROPHYLAC PSC TIC/DX INJECTION SUBQ/IM INJ J2930 A C KILPELA METHYLPRD 2 ENOCH MARTIN NISOLONE PSC SODIUM SUCCNAT TO 125 MG DUPLEX 59195 ATKINS ATKINS SCAN 2 COL COL HEMODIALY SIS ACCESS IAADI 79792 ROBYN CARLSON INFLUENZA 2 [facility] B VIRUS INC INC IAADI 09762 ROBYN ROBYN INFFLUENZ 2 [facility] A A VIRUS INC INC DUPLEX 93265 ATKINS ATKINS SCAN 2 COL COL HEMODIALY SIS ACCESS DUPLEX 10626 [facility] SCAN 1 HEMODIALY RADIOLOGY RADIOLOGY SIS ASSOCIAT ASSOCIAT ACCESS DUPLEX 71826 [facility] SCAN 1 SURGICAL COL HEMODIALY ASSOCIATE SIS S ACCESS TRANSLUMI [address] [place] ANGIOPLAS TY VENOUS RS&I POTASSIUM [address] PLASMA/WH OLE BLOOD INTRO 08637 [facility] NDL/CATH [address] [place] [address] AV SHUNT IST ACCESS W/ RAD EVAL THRMBC 67925 [facility] PRQ ARVEN [address] [place] [address] FSTL AUTOG/NON AUTOG GRF GUIDE C[address] INJECTION J2250 [address] MIDAZOLAM HCL PER 1 MG INJECTION J3010 [address] CITRATE 0.1 MG CATHETER C18[address] TRLUML [address] [facility] [place] [facility] ANGIOPLAS TY PERCUTANE OUS VENOUS PROTHROMB 11233 [facility] IN TIME 1 [facility] PROTHROMB 42683 ROBYN CAR[facility]ON IN TIME 1 [facility]OS[facility] INC INC SEDIMENTA 95907 ROBYN [facility]LSON TISADIA RATE 1 [facility] RBC INC INC NON-AUTOM ATED BASIC 02287 ROBYN CARLSON METABOLIC 1 [facility] PANEL INC INC CALCIUM TOTAL BLOOD 99379 ROBYN [facility] COUNT 1 [facility] COMPLETE INC INC AUTO&[place] [address] ROBYN [facility] BLOOD/URI 1 [facility] C ACID INC INC THER 90905 ROBYN [facility] PROPH/DX 1 [facility] NJX IV INC INC PUSH SINGLE/1S T SBST/DRUG RADEX 33036 ROBYN CARLSON FOOT 1 [facility] COMPLETE INC INC MINIMUM 3 VIEWS STANDARD K0001 AVIS SÁNCHEZI 1 HOME MED HOME MED R EQUIP. L EQUIP. L TRLUML [address] ANGIOPLAS TY PERCUTANE OUS VENOUS PROTHROMB 50314 [facility] IN TIME 1 [facility] TRANSLUMI [address] [place] ANGIOPLAS TY VENOUS RS&I POTASSIUM [address] PLASMA/WH OLE BLOOD INTRO 49435 [facility] NDL/CATH [address] [place] [address] AV SHUNT IST ACCESS W/ RAD EVAL GUIDE C[address] CATHETER C[address] NAL ANGIOPLAS TY NON-LASER INTRDUCR/ C1894 [address] NOT GUID INTRACARD EP NON-LASR DUPLEX 50942 [facility] SCAN 1 SURGICAL COL HEMODIALY ASSOCIATE SIS S ACCESS STANDARD K0001 [facility]IS CERONCHAI 1 HOME MED HOME MED R EQUIP. L EQUIP. L STANDARD K0001 [facility] CERONCHAI 1 HOME MED HOME MED R EQUIP. L EQUIP. L STANDARD K0001 [facility] AL[facility]AN WHEELCHAI 0 HOME MED HOME MED R EQUIP. L EQUIP. L STANDARD K0001 [facility] WHEELCHAI 0 HOME MED HOME MED R EQUIP. L EQUIP. L DUPLEX 35374 [place] ATKINS SCAN 0 SURGICAL COL HEMODIALY ASSOCIATE SIS S ACCESS STANDARD K0001 [facility] WHEELCHAI 0 HOME MED HOME MED R EQUIP. L EQUIP. L STANDARD K0001 [facility]IS CERONCHAI 0 HOME MED HOME MED R EQUIP. L EQUIP. L ARTERIOVE 97362 [place] HAREMILY NOUS 0 SURGICAL SHASHA ANASTOMOS ASSOCIATE IS OPEN S P DIRECT PROTHROMB 66598 [facility] IN TIME 0 [facility] ANESTHESI 92379 ANESTHESI BROWN CAT A 0 A VASCULAR ASSOCIATE SHUNT/NALINI S, PSC NT REVISION POTASSIUM 19932 [facility] SERUM [address] [place] [address] PLASMA/WH OLE BLOOD ECG 79279 [facility] J ROUTINE 0 [facility] ECG CLINIC W/LEAST PSC 12 LDS I&R ONLY ECG [address] ECG W/LEAST 12 LDS TRCG ONLY W/O I&R VESSEL G0365 [place] ATKINS MAPPING 0 SURGICAL COL OF ASSOCIATE VESSELS S FOR HEMODIALY SIS ACESS COLLECTIO 15948 ROBYN CARLSON N VENOUS 0 [facility] [place] [address] ROBYN CAR[facility] BLOOD/URI 0 [facility] C ACID INC INC ANTINUCLE 95110 ROBYN [facility] AR 0 [facility] ANTIBODIE INC INC S GAVI PROTEIN 42736 ROBYN [facility] ELECTROPH 0 [facility] ORETIC INC INC FRACTJ&[place] [address] ROBYN CARLS[facility] PARATHORM 0 [facility] ONE INC INC URNLS DIP 07285 [facility]YN [facility] 0 [facility] STICK/TAB INC INC LET REAGENT AUTO MICROSCOP Y RENAL 51056 ROBYN [facility] FUNCTION 0 [facility] PANEL INC INC ANTIBODY 32057 ROBYN [facility] IDENTIFIC 0 [facility] ATION INC INC LEUKOCYTE ANTIBODIE S COMPLEMEN 70973 ROBYN [facility] T 0 [facility] FUNCTIONA INC INC L ACTIVITY EACH COMPONENT DNA 28621 ROBYN [facility] ANTIBODY 0 [facility] SELDOV[place] [address] ROBYN CARLSON RETROPERI 0 [facility] TONEAL INC INC REAL TIME W/IMAGE COMPLETE STRAPPING 43903 [facility] 0 Y Y [facility] STRAPPING 07876 [facility] 0 Y Y [facility] INJECTION J3301 NANCY QUILES, 0 MEDICAL SATHISH Romero [facility]AM[facility] LONE FOUNDATIO ACETONIDE NOS 10 MG STRAPPING 17230 [facility] 0 Y Y [facility] STRAPPING 66552 [facility] 0 Y Y [facility] DEBRIDEME 97346 [facility] SKIN 9 Y Y PARTIAL [facility] THICKNESS EXCISIONA 8622 [facility] 9 Y Y [facility] NT WOUND INFECTION OR BURN APPLICATI 9353 [facility] ON OF 9 Y Y OTHER [facility] CAST STRAPPING 46879 [facility] 9 Y Y [facility] STRAPP[facility] 13342 [facility] 9 Y Y [facility] APPLICATI 9353 [facility] ON OF 9 Y Y OTHER [facility] CAST COLLECTIO 43839 Natacha KENDALL, Natacha Victoria VENOUS 8 ENOCH CAROLINA C BLOOD PSC VENIPUNCT URE Encounters Encounter Start End Date Code Location Performer Type Date OFFICE 47545 [facility] OUTPATIEN 7 7 SURGICAL T VISIT ASSOCIATE 15 S [facility] ROBYN - 7 7 [facility] OUTPATIEN [facility] ROBYN - 7 7 [facility] OUTPATIEN INC T OFFICE 90127 [facility] FRYMAN OUTPATIEN 7 7 PHYSICIAN T VISIT S GROUP 15 MINUTES HOSPITAL ROBYN - OTHER 7 7 [facility] INC OFFICE 94236 [facility] OUTPATIEN 7 7 [place] T [facility]IN[facility] 15 PSC MINUTES OFFICE 93797 [facility] STONE OUTPATIEN 7 7 PHYSICIAN T VISIT S GROUP 25 MINUTES HOSPITAL ROB[facility] - 7 7 [facility] OUTPATIEN INC T EMERGENCY 89098 ROB[facility] 7 7 [facility] DEPARTMEN INC T VISIT LOW/MODER SEVERITY EMERGENCY 12279 OLIVA SPANGLER 7 7 PHYSICIAN DEPARTMEN S, PLLC T VISIT HIGH/URGE NT SEVERITY HOSPITAL ROB[facility] - 7 7 [facility] OUTPATIEN INC T OFFICE 26785 [facility] 7 MEDICAL T VISIT SERV 25 FOUNDATIO MINUTES [facility] ROBYN - 7 7 [facility] OUTPATIEN INC [facility] ROBYN - 7 7 [facility] OUTPATIEN INC [facility] - 7 7 [facility] OUTPATIEN INC T OFFICE 27975 [facility] 7 7 [place] T VISIT [facility]INIC 25 PSC MINUTES HOSPITAL ROBYN - 7 7 [facility] OUTPATIEN INC T OFFICE 24394 [facility] FRY[facility] OUTPATIEN 7 7 PHYSICIAN T VISIT S GROUP 25 MINUTES HOSPITAL ROBYN - 6 6 [facility] OUTPATIEN INC [facility] ROB[facility] - 6 6 [facility] OUTPATIEN INC [facility] - 6 6 [facility] OUTPATIEN INC T OFFICE 91015 [facility] 6 6 [place] JUDY T VISIT CLINIC 15 PSC MINUTES HOSPITAL ROBYN - 6 6 [facility] OUTPATIEN [facility] ROBYN - 6 6 [facility] OUTPATIEN [facility] ROBYN - 6 6 [facility] OUTPATIEN INC T OFFICE 80605 [facility] FRYMAN OUTPATIEN 6 6 PHYSICIAN EUG T VISIT S GROUP 25 MINUTES HOSPITAL ROBYN - OTHER 6 6 [facility] INC OFFICE 46457 [facility] MCDANIELS BRITTNEY OUTPATIEN 6 6 MEDICAL T VISIT SERV 25 FOUNDATIO MINUTES N OFFICE 70394 [facility] MISHA LIBRADO OUTPATIEN 6 6 PHYSICIAN T VISIT S GROUP 15 MINUTES HOSPITAL ROBYN - 6 6 [facility] OUTPATIEN [facility] ROBYN - 6 6 [facility] OUTPATIEN [facility] ROBYN - 6 6 [facility] OUTPATIEN [facility] ROBYN - 6 6 [facility] OUTPATIEN [facility] ROBYN - 6 6 [facility]PATIEN [facility] OFFICE 79389 [facility] FR[facility] OUTPATIEN 6 6 PHYSICIAN EUG T VISIT S GROUP 15 MINUTES HOSPITAL ROBYN - OTHER 6 6 [facility] ROBYN - 6 6 [facility] OUTPATIEN [facility] ROBYN - 6 6 [facility] T OFFICE 90188 [facility] OUTPATI[facility] 6 6 [place] JUDY T VISIT CLINIC 15 PSC MINUTES OFFICE 74987 [facility] FRYMAN OUTPATIEN 6 6 PHYSICIAN EUG T NEW 30 S GROUP MINUTES HOSPITAL ROBYN - 6 6 [facility] OUTPATIEN [facility] ROBYN - 6 6 [facility]PATI[facility] ROBYN - 6 6 [facility] ROBNY - 6 6 [facility] ROBYN - 5 5 [facility]PATI[facility] - 5 5 [facility] OUTPATIEN [facility] ROBYN - 5 5 [facility] OUTPATIEN [facility] OFFICE 12870 A C FIELD AMB OUTPATIEN 5 5 ENOCH CAROLINA T VISIT 5 PSC MINUTES [facility] ROBYN - 5 5 [facility] ROBYN - 4 4 [facility] OFFICE 69286 A C KILPELA OUTPATIEN 4 4 ENOCH MARTIN T VISIT PSC 15 MINUTES OFFICE 76418 A C KILPELA OUTPATIEN 4 4 ENOCH MARTIN T VISIT PSC 15 MINUTES OFFICE 85959 KILPE[facility] KILPELA OUTPATIEN 4 4 VERONICA MARTIN T VISIT 15 MINUTES OFFICE 03240 [facility] OUTPATIEN 4 4 SURGICAL COL T VISIT ASSOCIATE 15 S MINUTES OFFICE 45837 [facility] OUTPATIEN 4 4 T VISIT 25 MINUTES Emergency ZACHARIAH De Los Santos MD (ER) 3 10:10 3 12:31 [facility] ROBYN - 3 3 [facility] OUTPATIEN [facility] OFFICE 54581 A C KILPELA OUTPATIEN 3 3 ENOCH MARTIN T VISIT PSC 15 MINUTES [facility] ROBYN - 3 3 [facility] OUTPATIEN INC T OFFICE 59529 A C KENDALL A OUTPATIEN 3 3 ENOCH CAROLINA T VISIT 5 PSC MINUTES OFFICE 69298 A C DENI OUTPATIEN 3 3 ENOCH MARTIN T VISIT PSC 25 MINUTES HOSPITAL ROBYN - 3 3 [facility] OUTPATIEN INC T OFFICE 45761 KILPELA KILPELA OUTPATIEN 3 3 JENatacha JEA T VISIT 15 MINUTES OFFICE 69739 K[facility] KILPELA OUTPATIEN 3 3 JEA JEA T VISIT 15 MINUTES OFFICE 21398 [facility] ATKINS OUTPATIEN 3 3 COL COL T VISIT 15 MINUTES OFFICE 67947 A C KILPELA OUTPATIEN 2 2 ENOCH CAROLINA JEA T VISIT PSC 15 MINUTES OFFICE 72281 K[facility]LA KILPELA OUTPATIEN 2 2 YOSHINatacha JEA T VISIT 15 MINUTES OFFICE 26810 A C KILPELA OUTPATIEN 2 2 ENOCH MARTIN T VISIT PSC 15 MINUTES HOSPITAL ROBYN - 2 2 [facility] OUTPATIEN INC T EMERGENCY 69020 ROB[facility] 2 2 [facility] DEPARTMEN INC T VISIT LOW/MODER SEVERITY OFFICE 05242 [facility] ATKINS OUTPATIEN 2 2 COL COL T VISIT 15 MINUTES OFFICE 79862 [facility] BRITTNEY M[facility]ANIEL[facility]NEY OUTPATIEN 2 2 T VISIT 25 MINUTES OFFICE 08273 [facility] 1 1 SURGICAL COL T VISIT ASSOCIATE 15 S MINUTES OFFICE 16777 A C [facility] OUTPATIEN 1 1 ENOCH FRAGOSO T VISIT PSC 15 MINUTES [facility] [place] 10862 1 HOSPITAL OUTPATIEN T EMERGENCY 25427 ROB[facility] 1 1 [facility] DEPARTMEN INC T VISIT HIGH/URGE NT SEVERITY HOSPITAL [facility] - 1 1 [facility] 81402 [facility] 1 1 SUR[facility]ICAL COL T VISIT [facility] 15 [facility] 04471 [facility] 0 SUR[facility]ICAL COL T NEW 30 [facility] OFFICE 15460 [facility] OUTPATIEN 0 0 ADULT PATITO T VISIT PRIMARY CARE [facility] - 0 0 [facility] [id number] [facility]PATIEN 0 0 ADULT PATITO T NEW [address] [facility] OFFICE 68213 [facility] 0 0 NURSE DON T [facility] 40 [facility] UN[facility]ERS[facility] 0 0 Y [facility] OFFICE [id number] UNIVERSIT OUTPATI 0 0 Y T VISIT [address] UNIVERSIT - 0 0 Y [facility] UNIVERSIT - 0 0 Y [facility] T OFFICE 10222 NANCY QUILES[facility] OUTPATIEN 0 0 MEDICAL SATHISH D T VISIT SERV 10 [facility] UNIVERSIT - 0 0 Y [facility] ROBYN - 0 0 [facility] UNIVERSIT [facility] 0 0 Y [facility] UN[facility]ERSIT - 9 9 [facility] 9 9 Y [facility] 9 9 Y [facility] - 9 9 Y [facility] OFFICE 59799 Natacha MOORE 8 8 ENOCH Daniel VISIT 5 P[facility] MINUTES OFFICE 53083 Natacha MOORE 8 8 ENOCH Daniel VISIT P[facility] 15 MINUTES
--- OUTSIDE RECORDS SUMMARY | 2017-02-09 03:58 | External Medical Summary Rpt | CCD ---
Author Author , ANISHA Organization ANISHA Address Unknown Phone [email or web address] Care Team Providers Care Street Vendor Name Role Phone A Blessing KENDALL MD [...] PAOLO HERMAN DON, HERMAN Unavailable Unavailable DON [facility] Un[place] [place] [facility] Unavailable Unavailable [facility]OCI[facility], [facility] FIELD AMB, FIELD AM[facility] Unavailable Unavailable FRYMAN, FRYMAN Unavailable Unavailable FRYMAN EUG, FRYMAN Unavailable Unavailable EUG MALCOLM DEANDRE, MALCOLM Unavailable Unavailable DEANDRE [facility], [facility] Unavailable Unavailable INC [facility], [facility] Unavailable Unavailable [facility] Un[facility] Unavailable INC, [facility] HARWARD SHASHA, HARWARD Unavailable Unavailable SHASHA [facility], Unavailable Unavailable [facility] SPANGLER, SPANGLER Unavailable Unavailable [facility], [facility] KILPELA JEA, KILPELA Unavailable Unavailable JEA KILPECLAUDETTE JEA, KILPELA Unavailable Unavailable VERONICA De Los Santos MD, Unavailable Unavailable Patricia De Los Santos MD [facility] Unavailable Unavailable PRACTITIONER GR, [facility]ACT[facility] Unavailable Unavailable LABORATO, [facility] REBEL, REBEL Unavailable Unavailable REBEL JUDY, REBEL Unavailable Unavailable JUDY SATHISH QUILES MAIR, Unavailable Unavailable SATHISH Romero [facility] Unavailable Unavailable ASSOCIAT, [facility] Unavailable Unavailable [facility] Unavailable Unavailable PSC, [facility] PSC WILKERSON TER, WILKERSON Unavailable Unavailable [...] Unavailable Unavailable [facility], [facility], Unavailable Unavailable [facility] STONE, STONE Unavailable Unavailable STONE LIBRADO, STONE LIBRADO Unavailable Unavailable [facility] Unavailable Unavailable [facility], [facility] Unavailable Unavailable ASSOCIATES P, [facility] P [facility], Unavailable Unavailable [facility] MCDANIELS, MCDANIELS Unavailable Unavailable MCDANIELS [...] [facility] STAGE 4 SEVERE [id number] STENOSIS 11-01-2016 [facility] DEVC IMPL ASSOCIATES & GRAFT INIT ENC I4891 UNSPECIFIED 10-23-2016 [facility] ATRIAL [facility] FIBRILLATIO INC N Z5181 ENCOUNTER 10-23-2016 [facility] FOR [facility] THERAPEUTIC INC DRUG LEVEL MONITORING Z7901 LONG-TERM 10-23-2016 [facility] CURRENT USE [facility] OF INC ANTICOAGULA NTS E039 HYPOTHYROID 09-08-2016 [facility] ISM PHYSICIANS UNSPECIFIED GROUP N189 CHRONIC 09-08-2016 [facility] KIDNEY PHYSICIANS DISEASE GROUP UNSPECIFIED N289 DISORDER OF 09-08-2016 [facility] KIDNEY AND PHYSICIANS URETER GROUP UNSPECIFIED [id number] OTHER LONG 09-08-2016 [facility] TERM [facility] CURRENT INC DRUG THERAPY [id number] MALIGNANT 08-17-2016 NEW NEOPLASM [facility] RIGHT FEMALE BREAST D58878 LONG-TERM 08-17-2016 NEW SELECTED [place] ESTROGEN [facility] PSC RECEPTOR MODULATORS E785 HYPERLIPIDE 08-01-2016 [facility] ZANDER PHYSICIANS UNSPECIFIED GROUP I10 ESSENTIAL 08-01-2016 [facility] PRIMARY PHYSICIANS HYPERTENSIO GROUP N L299 PRURITUS 08-01-2016 [facility] UNSPECIFIED PHYSICIANS GROUP I517 CARDIOMEGAL 07-29-2016 [facility] J069 ACUTE UPPER 07-29-2016 [facility] INFECTION UNSPECIFIED R0981 NASAL 07-29-2016 [facility]STION [facility], PLLC I129 HYPERTENSIV 07-03-2016 [facility] W/STAGE 1-4 [facility]OUNDATION CKD OR UNS CKD I509 HEART 07-03-2016 [facility] UNSPECIFIED [facility] M810 AGE-RELATED 07-03-2016 [facility] OSTEOPOROSI [facility] S W/O CURRNT PATH FX N183 CHRONIC 07-03-2016 [facility] DISEASE [facility] STAGE 3 MODERATE N250 RENAL 07-03-2016 [facility] OSTEODYSTR[facility] SERV PHY [facility] I272 OTHER 06-01-2016 NEW SECONDARY [place] PULMONARY [facility] PSC HYPERTENSIO N 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 [place] VALVE [facility] PSC DISORDER UNSPECIFIED I482 CHRONIC 06-01-2016 NEW ATRIAL [place] FIBRILLATIO CLINIC [facility] N R931 ABNORMAL 06-01-2016 NEW FINDINGS ON [place] DX IMAGING CLINIC PSC HEART & COR CIRC R0602 SHORTNESS 05-24-2016 [facility] OF BREATH [facility] INC R05 COUGH 02-12-2016 [facility] R079 CHEST PAIN 02-12-2016 [facility]PEC[facility] Z23 ENCOUNTER 02-10-2016 NEW FOR [place] IMMUNIZATIO CLINIC PSC N E8770 FLUID 12-13-2015 [facility] OVERLOAD SERV UNSPECIFIED FOUNDATION H109 UNSPECIFIED 12-06-2015 [facility] PHYSICIANS CONJUNCTIVI GROUP TIS D649 ANEMIA 12-01-2015 [facility] UNSPECIFIED MEM [facility] INC E559 VITAMIN D 12-01-2015 [facility] DEFICIENCY [facility] UNSPECIFIED INC N186 END STAGE 10-27-2015 [facility] Z992 DEPENDENCE 10-27-2015 [facility] DIAL[facility]IS [facility] Q50981 MALIGNANT 08-26-2015 [facility] NEOPLASM UNS SITE UNS FEMALE BREAST J209 ACUTE 05-27-2015 [facility] BRONCHITIS PHYSICIANS UNSPECIFIED GROUP R7881 BACTEREMIA 05-27-2015 [facility] J441 CHRONIC 05-24-2015 [facility] OBSTRUCTIVE PHYSICIANS PULMONARY GROUP DZ W/EXACERBAT ION R0902 HYPOXEMIA 05-24-2015 [facility] J440 COPD WITH 05-21-2015 [facility] ACUTE LOWER [facility] INC RESPIRATORY INFECTION J302 OTHER 02-14-2015 [facility] SEASONAL [facility] ALLERGIC INC RHINITIS R42 DIZZINESS 02-14-2015 [facility] AND [facility] GIDDINESS INC 1749 MALIGNANT 11-17-2014 [facility] NEOPLASM OF BREAST UNSPECIFIED SITE 2330 CARCINOMA 11-16-2014 NEW IN SITU OF [place] BREAST CLINIC PSC 2724 OTHER AND 11-11-2014 [facility] UNSPECIFIED HOSPITAL HYPERLIPIDE ZANDER 95656 ATRIAL 11-11-2014 [facility] FIBRILLATIO [facility] N 4280 CONGESTIVE 11-11-2014 [facility] FAILURE UNSPECIFIED 490 BRONCHITIS 11-11-2014 [facility] SPECIFIED ACUTE OR CHRONIC 75061 UNSPECIFIED 11-11-2014 [facility] ARTHROPATHY SITE UNSPECIFIED 69280 UNSPECIFIED 11-11-2014 [facility] OSTEOPOROSI S V5869 LONG-TERM 11-11-2014 [facility] (CURRENT) HOSPITAL USE OF OTHER MEDICATIONS 4011 ESSENTIAL 11-03-2014 NEW HYPERTENSIO [place] N, BENIGN CLINIC PSC 7823 EDEMA 11-03-2014 NEW [place] [facility] PSC 7852 UNDIAGNOSED 11-03-2014 NEW CARDIAC [place] [facility]IN[facility] 11831 SHORTNESS 11-03-2014 NEW OF BREATH [facility] PSC V5861 LONG-TERM 11-03-2014 NEW (CURRENT) [place] USE OF CLINIC [facility] ANTICOAGULA NTS V6751 F/U EXAM 11-03-2014 NEW FOLLOW CMPL [facility] CLINIC PSC W/HIGH-RISK MED NEC 99438 LUMP OR 10-07-2014 [facility] MASS IN [facility] BREAST INC 65581 OTHER 10-07-2014 [facility] RADIOLOGICA L EXAM BREAST V5883 ENCOUNTER 08-18-2014 Natacha LOPEZ MD [facility] THERAPEUTIC DRUG MONITORING 15117 OTHER 06-09-2014 [facility] NONSPECIFIC MEDICAL ABNORMAL [facility] ASS FINDING OF LUNG FIELD V4611 DEPENDENCE 06-09-2014 [facility] RESPIRATOR [facility] STATUS 78227 ALTERED 06-08-2014 [facility] STATUS [facility] V5882 ENCOUNTER 06-08-2014 [facility] FITTING[facility]J [facility] NON-VASCULA R CATHETER NEC 486 PNEUMONIA, 06-04-2014 [facility]ISM [facility]ICAL UNSPECIFIED IMAGING ASS 89608 HTN CKD UNS 06-03-2014 [facility] W/CKD [facility] STAGE I INC THRU STAGE IV/UNS 31664 CORONARY 06-03-2014 [facility] ATHEROSCLER [facility] OSIS LA JOLLA INC CORONARY ARTERY 4820 PNEUMONIA 06-03-2014 [facility] DUE TO MEM [facility]OS[facility] KLEBSIELLA INC PNEUMONIAE 60866 ACUTE 06-03-2014 [facility] RESPIRATORY [facility] FAILURE INC 5849 ACUTE 06-03-2014 [facility] KIDNEY [facility] FAILURE INC UNSPECIFIED 5854 CHRONIC 06-03-2014 [facility] DISEASE INC STAGE IV (SEVERE) 7862 COUGH 06-03-2014 [facility] 7869 OTH 06-03-2014 [facility] SYMPTOMS [facility]ICAL INVOLVING IMAGING ASS RESPIRATORY SYSTEM&CHES T [address]92 UNSPECIFIED 02-22-2014 [facility] VENOUS [facility] INSUFFICIEN INC CY 5939 UNSPECIFIED 02-22-2014 [facility] DISORDER N EMERGENCY OF KIDNEY PHYS AND URETER 7079 CHRONIC 02-22-2014 [facility] ULCER OF MEM HOS[facility] UNSPECIFIED INC SITE 6829 CELLULITIS 01-23-2014 A Blessing KENDALL AND ABSCESS PSC OF UNSPECIFIED SITE 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 4660 ACUTE 09-24-2013 KILPELA JEA BRONCHITIS 16265 OT COMPS 08-27-2013 [facility] RENAL [facility]ICAL DIALYSIS ASSOCIATES DEVICE IMPLANT&GFT 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 276.51 276.51 03-30-2013 [place] DEHYDRATION [facility] 10588 DEHYDRATION 03-30-2013 JUDITH PILLAI 401.9 401.9 03-30-2013 [place] HYPERTENSIO [facility] 4019 UNSPECIFIED 03-30-2013 [facility] ESSENTIAL [facility] HYPERTENSIO INC N 427.31 427.31 03-30-2013 [place] ATRIAL [facility] 7804 DIZZINESS 03-30-2013 JUDITH PILLAI AND PAMELA 91378 ULCER OF 01-29-2013 [facility] CALF [facility] INC V571 OTHER 01-29-2013 [facility] THERAPY INC 35095 NUCLEAR 01-21-[address] [place] [address] DIAB W/O 12-18-2012 A Blessing KENDALL COMP TYPE PSC II/UNS NOT STATED UNCNTRL 2449 UNSPECIFIED 11-11-2012 Natacha KENDALL MD [facility] HYPOTHYROID ISM 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 KILPELA JEA HYPERLIPIDE ZANDER 7295 PAIN IN 05-16-2012 [facility] SOFT [facility] TISSUES OF INC LIMB 71761 SWELLING OF 05-16-2012 MARC LIMB PAOLO 4829 UNSPECIFIED 05-03-2012 KILPECLAUDETTE BELLEA BACTERIAL PNEUMONIA 4619 ACUTE 02-16-2012 [facility] SINUSITIS, MEM HOS[facility] UNSPECIFIED INC 65750 JAW PAIN 02-16-2012 [facility] INC 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 L SITE 04598 OTHER 07-07-2010 [facility] MALAISE AND HOME MED FATIGUE EQUIP. L 7812 ABNORMALITY 07-07-2010 [facility] OF GAIT HOME MED EQUIP. 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 V7281 PRE-OPERATI 12-07-2009 NEW VE [place] CARDIOVASCU CLINIC [facility] LAR EXAMINATION V7283 OTHER 12-01-2009 UNITED SPECIFIED SURGICAL PRE-OPERATI ASSOCIATES VE EXAMINATION 56824 HYPERPARATH 11-30-2009 [facility] ADULT YROIDISM PRIMARY UNSPECIFIED CARE TYLER 5853 CHRONIC 11-05-2009 [facility] K[facility]NEY [facility] DISEASE INC STAGE III (MODERATE) 586 UNSPECIFIED 11-05-2009 [facility] FAILURE [facility] 4409 GENERALIZED 11-02-2009 MEANS ADULT AND PRIMARY UNSPECIFIED CARE [facility]YL[facility] ATHEROSCLER OSIS 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 LEG HOSPITAL AND ANKLE COMPLICATED 70156 COMPLETE 06-07-2009 [place] [facility] RUPT[facility] OF SERV ROTATOR FOUNDATIO CUFF 99336 ULCER OF 05-27-2009 [facility] UNSPECIFIED 15741 SENILE 05-14-2009 [facility] OSTEOPOROSI [facility] S INC 6959 UNSPECIFIED 05-13-2009 [facility] ERYTHEMATOU S CONDITION 47031 ULCER OF 04-01-2009 [facility] 4659 ACUTE URIS 02-03-2008 Natacha JO PSC [...] Procedure DOS Code Location Performer Comment DUPLEX 33630 MAY DICKERSON SCAN 7 SURGICAL HEMODIALY ASSOCIATE SIS S ACCESS PROTHROMB 27137 [facility] IN TIME 7 MEM HOSP [facility] INC INC HOSPITAL G0463 [facility] OUTPATIEN 7 MEM HOSP MEM [facility]OS[facility] T CLIN INC INC VISIT ASSESS & MGMT PT HOSPITAL G0463 [facility] OUTPATIEN 7 MEM HOSP MEM HOSP T CLIN INC INC VISIT ASSESS & MGMT PT PROTHROMB 01496 [facility] IN TIME 7 MEM HOS[facility]OS[facility] INC INC BLOOD 03767 [facility] COUNT 7 MEM HOS[facility]OS[facility] COMPLETE INC INC AUTO&AUTO DIFRNTL WBC COMPREHEN 43687 [facility] SIVE 7 MEM H[facility]P [facility] [place] [address] ROBYN NICHOLEON FREE 7 MEM HOSP [place] [address] [facility] THYROID 7 MEM H[facility]OS[facility] STIMULATI INC INC NG HORMONE TSH LIPID 39845 [facility] PANEL 7 [facility] H[facility] INC INC PROTHROMB 75390 [place] IN TIME 7 CLINIC CLINIC LABORATO LABORATO COLLECTIO 41516 [place] N VENOUS 7 CLINIC CLINIC BLOOD LABORATO LABORATO VENIPUNCT URE BLOOD 40555 [place] COUNT 7 CLINIC CLINIC COMPLETE LABORATO LABORATO AUTO&AUTO DIFRNTL WBC COMPREHEN 68093 [place] SIVE 7 CLINIC CLINIC METABOLIC LABORATO LABORATO PANEL RADIOLOGI 34255 [facility] C 7 MEM HOSP [facility] EXAMINATI INC INC ON [facility]ST [facility] G0463 [facility] OUTPATIEN 7 MEM HOSP MEM HOSP T CLIN INC INC VISIT ASSESS & MGMT PT PROTHROMB 12065 [facility] IN TIME 7 MEM HOS[facility] MEM [facility]OS[facility] INC INC COLLECTIO 53615 [facility] N VENOUS 7 MEM HOS[facility] MEM HOSP BLOOD INC INC VENIPUNCT URE BLOOD 01746 [facility] COUNT 7 MEM H[facility] MEM [facility]OS[facility] COMPLETE INC INC AUTO&AUTO DIFRNTL WBC CALCIUM 43006 [facility] IONIZED 7 [place] [address] [facility] PARATHORM 7 MEM HOS[facility] ONE INC INC RENAL 30688 [facility] FUNCTION 7 MEM HOS[facility] MEM [facility]OS[facility] PANEL INC INC 25 26955 [facility] HYDROXY 7 MEM HOSP [facility]OS[facility] INCLUDES INC INC FRACTIONS IF PERFORMED HOSPITAL G0463 [facility] OUTPATIEN 7 MEM H[facility] MEM [facility]OS[facility] T CLIN INC INC VISIT ASSESS & MGMT PT PROTHROMB 64503 [facility] IN TIME 7 MEM HOSP MEM HOS[facility] INC INC PROTHROMB 99088 [facility] IN TIME 7 MEM HOSP [facility] INC INC HOSPITAL G0463 [facility] OUTPATIEN 7 MEM HOS[facility] MEM [facility]OS[facility] T CLIN INC INC VISIT ASSESS & MGMT PT ECHO 72346 [facility] TTHRC R-T 7 MEM HOSP MEM [facility]OS[facility] 2D INC INC W/WOM-MOD E COMPL SPEC&COLR D LIPID 57942 ROBYN ROBYN PANEL 7 [place] [address] ROBYNS[place] CARLS[facility] TROPONIN 7 MEM HOSP [facility] QUANTITAT INC INC EMILIA PROTHROMB 35937 [facility] IN TIME 7 MEM HOS[facility] INC INC CREATINE 76140 [facility] KINASE 7 MEM HOSP MEM [facility]OS[facility] TOTAL INC INC BLOOD 66206 [facility] COUNT 7 MEM H[facility] COMPLETE INC INC AUTO&AUTO DIFRNTL WBC COMPREHEN 49422 ROBYNSADIA CARLSON SIVE 7 MEM HOSP MEM HOSP METABOLIC INC INC PANEL CREATINE 51095 ROB[facility] KINASE MB 7 MEM HOSP [place] [address] ROB[facility] THYROID 7 MEM HOSP [facility] STIMULATI INC INC NG HORMONE TSH COLLECTIO 88390 ROBYN ROBYN N VENOUS 7 [facility] [place]OD [place] [address] ROB[facility] CARLSON FREE 7 MEM HOSP MEM HOSP THYROXINE INC INC PROTHROMB 23077 ROBYN NICHOLEON IN TIME 6 MEM HOSP MEM HOSP INC INC HOSPITAL G0463 ROBYN CARLSON OUTPATIEN 6 MEM HOSP MEM HOSP T CLIN INC INC VISIT ASSESS & MGMT PT HOSPITAL G0463 ROBYN ROBYN OUTPATIEN 6 MEM HOSP MEM HOSP T CLIN INC INC VISIT ASSESS & MGMT PT PROTHROMB 89968 [facility] IN TIME 6 MEM HOS[facility] MEM HOS[facility] INC INC ECG 68206 NEW NEW ROUTINE 6 [facility] ECG CLINIC CLINIC W/LEAST PSC PSC 12 LDS W/I&R HOSPITAL G0463 [facility] OUTPATIEN 6 MEM HOSP MEM HOS[facility] T CLIN INC INC VISIT ASSESS & MGMT PT PROTHROMB 50926 [facility] IN TIME 6 MEM HOSP MEM HOS[facility] INC INC RADIOLOGI 18042 ASHKAN TRAN C 6 MEDICAL PAOLO EXAMINATI IMAGING ON CHEST ASS SINGLE VIEW FRONTAL IIV4 VACC 93954 NEW REBEL SPLIT 6 DENAE JUDY VIRUS 0.5 CLINIC ML DOS PSC FOR IM USE PROTHROMB 22796 DENAE PHILIPPE IN TIME 6 CLINIC CLINIC LABORATO LABORATO ADMINISTR G0008 NEW REBEL ATION OF 6 [place] UJDY INFLUENZA CLINIC VIRUS PSC VACCINE COLLECTIO 62110 DENAE PHILIPPE N VENOUS 6 CLINIC CLINIC BLOOD LABORATO LABORATO VENIPUNCT URE COMPREHEN 66337 DENAE PHILIPPE SIVE 6 CLINIC CLINIC METABOLIC LABORATO LABORATO PANEL BLOOD 73572 DE[facility] PHILIPPE COUNT 6 CLINIC CLINIC COMPLETE LABORATO LABORATO AUTO&AUTO DIFRNTL WBC PROTHROMB 35702 [facility] CARLSON IN TIME 6 MEM HOSP [facility] G0463 ROBYN CARLSON OUTPATIEN 6 MEM HOSP MEM HOSP T CLIN INC INC VISIT ASSESS & MGMT PT HOSPITAL G0463 [facility] OUTPATIEN 6 MEM H[facility] T CLIN INC INC VISIT ASSESS & MGMT PT PROTHROMB 45386 ROB[facility] CAR[facility] IN TIME 6 MEM H[facility] INC INC BREAST L8000 [facility] PROS 6 INC INC MASTECTOM Y BRA W/O INTEG PROS FORM PROTHROMB 28650 [facility] IN TIME 6 MEM HOS[facility] INC INC HOSPITAL G0463 ROBYN CARLSON OUTPATIEN 6 MEM HOSP MEM [facility]OS[facility] T CLIN INC INC VISIT ASSESS & MGMT PT LIPID 28410 ROBYN CAR[facility] PANEL 6 [facility] INC INC PROTHROMB 31657 ROBYN CARLSON IN TIME 6 [facility] INC INC COLLECTIO 44776 ROBYN CAR[facility]ON N VENOUS 6 MEM [facility] [place] [address] ROBYN CAR[facility] THYROID 6 MEM HOSP [facility] STIMULATI INC INC NG HORMONE TSH BLOOD 88579 ROB[facility] CAR[facility] COUNT 6 MEM H[facility] COMPLETE INC INC AUTO&AUTO DIFRNTL WBC COMPREHEN 43178 ROB[facility] SIVE 6 MEM HOS[facility] [address] ROBYN [facility] FREE 6 MEM HOS[facility] [place] [address] ROBYN CAR[facility] BLOOD/URI 6 MEM HOS[facility] C ACID INC INC CALCIUM 13988 [facility] IONIZED 6 MEM HOSP [facility] INC INC CREATININ 45822 ROBYN [facility] E OTHER 6 MEM HOSP [facility]OS[facility] SOURCE INC INC COLLECTIO 56195 ROBYN [facility] N VENOUS 6 MEM HOSP MEM HOSP BLOOD INC INC VENIPUNCT URE CULTURE 55492 ROBYN [facility] BACTERIAL 6 MEM HOSP MEM HOSP INC INC QUANTTATI VE COLONY COUNT URINE HOSPITAL G0463 ROBYN CARLSON OUTPATIEN 6 MEM HOSP MEM HOS[facility] T CLIN INC INC VISIT ASSESS & MGMT PT PROTHROMB 09989 ROBYN CARLSON IN TIME 6 [place] [address] ROBYN CARLSON PARATHORM 6 MEM HOSP [facility]OS[facility] ONE INC INC PROTEIN 26978 ROB[facility] XCPT 6 MEM HOSP MEM [facility]OS[facility] REFRACTOM INC INC ETRY SERUM PLASMA/WH L BLD BLOOD 27040 ROBYN CAR[facility]ON COUNT 6 MEM HOSP MEM HOSP COMPLETE INC INC AUTO&AUTO DIFRNTL WBC URNLS DIP 25653 ROB[facility] CARLSON 6 MEM HOSP [facility]OS[facility] STICK/TAB INC INC LET REAGENT AUTO MICROSCOP Y RENAL 62537 ROB[facility] FUNCTION 6 MEM HOSP MEM HOSP PANEL INC INC 25 44720 ROBYN [facility] HYDROXY 6 MEM HOSP [facility]OS[facility] INCLUDES INC INC FRACTIONS IF PERFORMED HOSPITAL G0463 ROB[facility] OUTPATIEN 6 MEM HOSP MEM [facility]OS[facility] T CLIN INC INC VISIT ASSESS & MGMT PT PROTHROMB 85740 ROBYN [facility] IN TIME 6 MEM HOSP MEM HOS[facility] INC INC DXA BONE 50094 ROB[facility] DENSITY 6 MEM HOSP MEM HOSP STUDY 1/> INC INC SITES AXIAL SKEL DUPLEX 43273 [facility] 6 SURGICAL SURGICAL HEMODIALY ASSOCIATE ASSOCIATE [facility] G0463 ROBYN CARLSON OUTPATIEN 6 MEM HOSP MEM HOS[facility] T CLIN INC INC VISIT ASSESS & MGMT PT PROTHROMB 46240 ROBYN CARLSON IN TIME 6 MEM HOSP MEM HOS[facility] INC INC PROTHROMB 21168 ROBYN CARLSON IN TIME 6 MEM HOS[facility] MEM HOSP INC INC BLOOD 47390 ROBYN CARLSON COUNT 6 MEM HOS[facility] MEM [facility]OS[facility] COMPLETE INC INC AUTO&[place] [address] ROBYN CAR[facility] THYROXINE 6 MEM HOSP [facility]OS[facility] TOTAL INC INC COMPREHEN 63799 ROBYN CARLSON SIVE 6 MEM HOSP MEM HOSP METABOLIC INC INC PANEL COLLECTIO 37951 ROBYN CARLSON N VENOUS 6 MEM HOS[facility] [place] [address] ROBYN CAR[facility] THYROID 6 MEM HOSP MEM [facility]OS[facility] STIMULATI INC INC NG HORMONE TSH LIPID 13095 ROB[facility] CAR[facility]ON PANEL 6 MEM HOS[facility] MEM HOS[facility] INC INC 1 25 49254 ROBYN [facility] DIHYDROXY 6 MEM HOSP MEM HOSP INCLUDES INC INC FRACTIONS IF PERFORMED HOSPITAL G0463 ROBYN CARLSON OUTPATIEN 6 MEM HOSP MEM HOS[facility] T CLIN INC INC VISIT ASSESS & MGMT PT PROTHROMB 38490 ROBYN CARLSON IN TIME 6 MEM HOSP MEM HOSP INC INC PROTHROMB 75915 ROBYN CARLSON IN TIME 6 MEM HOSP MEM HOSP INC INC HOSPITAL G0463 ROBYN CARLSON OUTPATIEN 6 MEM HOSP MEM HOSP T CLIN INC INC VISIT ASSESS & MGMT PT 25 62278 DENAE PHILIPPE HYDROXY 6 CLINIC CLINIC INCLUDES LABORATO LABORATO FRACTIONS IF PERFORMED BREAST L8030 [facility] PROSTH 6 INC INC SILICONE/ EQUAL W/O INTEGRAL ADHES PROTHROMB 67955 [facility]NA[facility] PHILIPPE IN TIME 6 [facility] LABORATO COLLECTIO 86066 [facility] PHILIPPE N VENOUS 6 [facility]INIC [facility]IN[facility] BLOOD [facility]AT[facility] VENIPUNCT URE COMPREHEN 54859 [facility] PHILIPPE SIVE 6 [facility]INIC CLINIC METABOLIC LAB[facility]ATO LAB[facility]ATO PANEL BLOOD 90221 [place] [facility] 6 [facility] CLINIC COMPLETE [facility] LAB[facility]ATO AUTO&AUTO DIFRNTL WBC BREAST L8000 [facility] PROS 6 INC INC MASTECTOM Y BRA W/O INTEG PROS FORM PROTHROMB 46411 [facility] IN TIME 6 [facility] INC PROTHROMB 63392 ROBYN CARLSON IN TIME 6 [facility]OSP[facility] G0463 ROB[facility] ROBYN OUTPATIEN 6 [facility] INC INC VISIT ASSESS & MGMT PT HOSPITAL G0463 ROB[facility] ROBYN OUTPATIEN 6 [facility] INC VISIT ASSESS & MGMT PT PROTHROMB 80535 ROBYN CAR[facility]ON IN TIME 6 [facility] NURSING 15862 [facility] 6 PHYSICIAN EUG DISCHARGE S GROUP MANAGEMEN T 30 MINUTES SBSQ 80554 [place] [address] PHYSICIAN EUG FACILITY S GROUP CARE/DAY E/M STABLE 10 MIN INITIAL 07642 [facility] 6 PHYSICIAN DEANDRE FACILITY S GROUP CARE/DAY 35 MINUTES HOSPITAL 04465 [facility] 6 PHYSICIAN DEANDRE DAY S GROUP MANAGEMEN T 30 MIN/< SBSQ 23668 [facility] 6 PHYSICIAN EUG CARE/DAY S GROUP 15 MINUTES SBSQ 73971 [facility] 6 PHYSICIAN DEANDRE CARE/DAY S GROUP 15 MINUTES INITIAL 22763 [facility] 6 PHYSICIAN DEANDRE CARE/DAY S GROUP 50 MINUTES RADIOLOGI 79306 [place] [facility] 6 MEDICAL EXAMINATI IMAGING ON CHEST ASS [place] FRONTAL PHYSICAL 75613 [facility] THERAPY [address] [place] [address] EVALUATIO N EXT BRST L8015 [facility] PROS 5 INC INC GARMNT W/MASTECT FORM POST-MAST ECT THERAPEUT 78661 [facility] IC PX 1/> 5 HOSPITAL HOSPITAL AREAS EACH 15 MIN EXERCISES NONCOVERE A9270 [facility] ITEM OR [address] [place] [address] HOSPITAL SERVICE NONCOVERE A9270 [facility] ITEM OR 5 [facility] HOSPITAL SERVICE IMHISTOCH 43587 [facility] EM/CYTCHM 5 [facility] 1ST CLINIC CLINIC ANTIBODY PSC PSC STAIN PROCEDURE ECG 46495 [facility] ROUTINE 5 [facility] ECG CLINIC CLINIC W/LEAST PSC PSC 12 LDS W/I&R DUP-SCAN 42269 [place] XTR VEINS [address] [place] COMPLETE CLINIC PSC BILATERAL STUDY ECHO 15972 [facility] R-T 5 [place] STEVE 2D CLINIC W/WOM-MOD PSC E COMPL SPEC&COLR D RADIOLOGI 12519 [facility] C EXAM 5 [place] CHEST 2 CLINIC VIEWS PSC FRONTAL&L ATERAL BX BREAST 09451 [place] MARC W/DEVICE 5 MEDICAL [place]OLO 1ST IMAGING LESION ASS ULTRASOUN D GUID US BREAST 50263 ROBYN CARLSON UNI REAL 5 [facility] TIME INC INC WITH IMAGE COMPLETE US BREAST 30779 [facility] UNI REAL 5 MEDICAL MEDICAL TIME IMAGING IMAGING WITH ASS ASS IMAGE LIMITED RADIOLOGI 50135 [place] MARC C 5 MEDICAL PAOLO EXAMINATI IMAGING ON CHEST ASS SINGLE VIEW FRONTAL RADIOLOGI 64278 [place] MARC C 5 MEDICAL [place] EXAMINATI IMAGING [place] [address] [place] MARC HEAD/BRAI 5 MEDICAL PAOLO N W/O IMAGING CONTRAST ASS MATERIAL INSERTION 9604 ROBYN CARLSON OF 5 [facility] ENDOTRACH INC INC EAL TUBE CONT 9671 ROBYN CARLSON INVASIVE 5 [facility] MECH VENT INC INC < 96 CONSECUTI VE HOURS RADIOLOGI 95607 [place] MARC C 5 MEDICAL PAOLO EXAMINATI IMAGING ON CHEST ASS SINGLE VIEW FRONTAL RADIOLOGI 00778 [place] MARC C 5 MEDICAL PAOLO EXAMINATI IMAGING ON CHEST ASS [facility]LE [facility] 72997 A C A C DISCHARGE 4 ENOCH KENDALL MD DAY [facility] PSC MANAGEMEN T 30 MIN/< ECG 82446 [facility] ROUTINE 4 SINAI S[facility]AI ECG EMERGENCY EMERGENCY W/LEAST PHYS PHYS 12 LDS I&R ONLY INJ J0702 KILPELA KILPELA BETAMETHA 4 VERONICA MARTIN SONE ACETATE & PHOSPHATE 3 MG INJECTION J1030 KILPELA KILPELA 4 VERONICA MARTIN METHYLPRE DNISOLONE ACETATE 40 MG THERAPEUT 03216 KILPELA KILPELA IC 4 JENatacha MARTIN PROPHYLAC TIC/DX INJECTION SUBQ/IM ECG 75331 ROBYN CARLSON ROUTINE 3 [facility] ECG INC INC W/LEAST 12 LDS TRCG ONLY W/O I&R ECG 20096 JUDITH PILLAI JUDITH PLILAI ROUTINE 3 ECG W/LEAST 12 LDS [place] [address] ROBYN CARLSON INFUSION 3 [facility] THERAPY/P INC INC ROPHYLAXI S /DX 1ST TO 1 HR DEBRIDEME 75215 ROBYN CARLSON NT OPEN 3 [facility] WOUND 20 INC INC SQ CM/< DEBRIDEME 60874 ROBYN CARLSON NT OPEN 3 [facility] WOUND INC INC EACH ADDITIONA L 20 SQ CM DEBRIDEME 15686 ROBYN CARLSON NT OPEN 3 [facility] WOUND INC INC EACH ADDITIONA L 20 SQ CM DEBRIDEME 00229 ROBYN CARLSON NT OPEN 3 [facility] WOUND INC INC EACH ADDITIONA L 20 SQ CM DEBRIDEME 63300 ROBYN CARLSON NT OPEN 3 [facility] WOUND INC INC EACH ADDITIONA L 20 SQ CM PHYSICAL 43461 ROBYN CARLSON THERAPY 3 [facility] EVALUATIO INC INC N CATARACT 21646 SANJIV KINCAID REMOVAL 3 LJ LJ INSERTION OF LENS CATARACT 56750 SANJIV KINCAID REMOVAL 3 LJ LJ INSERTION OF LENS DUP-SCAN 38228 ROBYN CARLSON XTR VEINS 3 [facility] INC INC UNILATERA L/LIMITED STUDY DUPLEX 67267 ATKINS ATKINS SCAN 3 COL COL HEMODIALY SIS ACCESS THERAPEUT 37436 A C KILABRILLA IC 2 ENOCH MARTIN [...] PSC NE SODIUM PER 250 MG THERAPEUT 43293 A Blessing CHEEMA IC 2 ENOCH MARTIN PROPHYLAC PSC TIC/DX INJECTION SUBQ/IM INJ J2930 A C KILPELA METHYLPRD 2 ENOCH MARTIN NISOLONE PSC SODIUM SUCCNAT TO 125 MG DUPLEX 36930 ATKINS ATKINS SCAN 2 COL COL HEMODIALY SIS ACCESS IAADI 64221 ROBYN CARLSON INFLUENZA 2 [facility] B VIRUS INC INC IAADI 73646 ROBYN ROBNY INFFLUENZ 2 [facility] A A VIRUS INC INC DUPLEX 17801 ATKINS ATKINS SCAN 2 COL COL HEMODIALY SIS ACCESS DUPLEX 74592 [facility] SCAN 1 HEMODIALY RADIOLOGY RADIOLOGY SIS ASSOCIAT ASSOCIAT ACCESS DUPLEX 85617 [facility] SCAN 1 SURGICAL COL HEMODIALY ASSOCIATE SIS S ACCESS TRANSLUMI [address] [place] ANGIOPLAS TY VENOUS RS&I POTASSIUM [address] PLASMA/WH OLE BLOOD INTRO 21272 [facility] NDL/CATH [address] [place] [address] AV SHUNT IST ACCESS W/ RAD EVAL THRMBC 56469 [facility] PRQ ARVEN [address] [place] [address] FSTL AUTOG/NON AUTOG GRF GUIDE C[address] INJECTION J2[address] MIDAZOLAM HCL PER 1 MG INJECTION J3010 [address] CITRATE 0.1 MG CATHETER C[address] TRLUML [address] [facility] [place] [facility] ANGIOPLAS TY PERCUTANE OUS VENOUS PROTHROMB 78099 [facility] IN TIME 1 [facility] PROTHROMB 92308 ROBYN CARLSON IN TIME 1 [facility] HOSP INC INC SEDIMENTA 02891 ROBYN CARLSON TISADIA RATE 1 [facility] RBC INC INC NON-AUTOM ATED BASIC 06574 ROBYN CARLSON METABOLIC 1 [facility] PANEL INC INC CALCIUM TOTAL BLOOD 15807 ROBYN CARLSON COUNT 1 [facility] COMPLETE INC INC AUTO&[place] [address] ROBYN CARLSON BLOOD/URI 1 [facility] C ACID INC INC THER 94870 ROBYN CARLSON PROPH/DX 1 [facility] NJX IV INC INC PUSH SINGLE/1S T SBST/DRUG RADEX 93115 ROBYN CARLSON FOOT 1 [facility] COMPLETE INC INC MINIMUM 3 VIEWS STANDARD K0001 AVIS SÁNCHEZI 1 HOME MED HOME MED R EQUIP. L EQUIP. L TRLUML [address] ANGIOPLAS TY PERCUTANE OUS VENOUS PROTHROMB 75618 [facility] IN TIME 1 [facility] TRANSLUMI [address] [place] ANGIOPLAS TY VENOUS RS&I POTASSIUM [address] PLASMA/WH OLE BLOOD INTRO 20872 [facility] NDL/CATH [address] [place] [address] AV SHUNT IST ACCESS W/ RAD EVAL GUIDE C[address] CATHETER C[address] NAL ANGIOPLAS TY NON-LASER INTRDUCR/ C18[address] NOT GUID INTRACARD EP NON-LASR DUPLEX 27030 [facility] SCAN 1 SURGICAL COL HEMODIALY [...] MED R EQUIP. L EQUIP. L DUPLEX 40590 NOVINGER ATKINS SCAN 0 SURGICAL COL HEMODIALY ASSOCIATE SIS S ACCESS STANDARD K0001 AVIS ALBARRAN WHEELCHAI 0 HOME MED HOME MED R EQUIP. L EQUIP. L STANDARD K0001 AVIS CERONCHAI 0 HOME MED HOME MED R EQUIP. L EQUIP. L ARTERIOVE 37652 NOVINGER HAREMILY NOUS 0 SURGICAL SHASHA ANASTOMOS ASSOCIATE IS OPEN S P DIRECT PROTHROMB 18045 [facility] IN TIME 0 [facility] ANESTHESI 24458 ANESTHESI BROWN CAT A 0 A VASCULAR ASSOCIATE SHUNT/NALINI S, PSC NT REVISION POTASSIUM 55954 [facility] SERUM [address] [place] [address] PLASMA/WH OLE BLOOD ECG 70399 [facility] ROUTINE 0 [place] ECG CLINIC W/LEAST PSC 12 LDS I&R ONLY ECG [address] ECG W/LEAST 12 LDS TRCG ONLY W/O I&R VESSEL G0365 NOVINGER ATKINS MAPPING 0 SURGICAL COL OF ASSOCIATE VESSELS S FOR HEMODIALY SIS ACESS COLLECTIO 11684 ROBYN CARLSON N VENOUS 0 [facility] [place] [address] ROBYN CARLSON BLOOD/URI 0 [facility] C ACID INC INC ANTINUCLE 77382 ROBYN CARLSON AR 0 [facility] ANTIBODIE INC INC S GAVI PROTEIN 02649 ROBYN CARLSON ELECTROPH 0 [facility] ORETIC INC INC FRACTJ&[place] [address] ROBYN CARLSON PARATHORM 0 [facility] ONE INC INC URNLS DIP 28204 ROBYN CARLSON 0 [facility] STICK/TAB INC INC LET REAGENT AUTO MICROSCOP Y RENAL 10023 ROBYN CARLSON FUNCTION 0 [facility] PANEL INC INC ANTIBODY 66042 ROBYN CARLSON IDENTIFIC 0 [facility] ATION INC INC LEUKOCYTE ANTIBODIE S COMPLEMEN 09813 ROBYN CARLSON T 0 [facility] FUNCTIONA INC INC L ACTIVITY EACH COMPONENT DNA 28821 ROBYN CARLSON ANTIBODY 0 [facility] [place] JOLL[place] [address] ROBYN CARLSON RETROPERI 0 [facility] TONEAL INC INC REAL TIME W/IMAGE COMPLETE STRAPPING 31457 [facility] 0 Y Y [facility] STRAPPING 97508 [facility] 0 Y Y [facility] INJECTION J3301 NANCY QUILES, 0 MEDICAL SATHISH Romero TRIAMCINO SERV LONE FOUNDATIO ACETONIDE NOS 10 MG STRAPPING 38939 [facility] 0 Y Y [facility] STRAPPING 86719 [facility] 0 Y Y [facility] DEBRIDEME 39540 [facility] SKIN 9 Y Y PARTIAL [facility] THICKNESS EXCISIONA 8622 [facility] 9 Y Y [facility] NT WOUND INFECTION OR BURN APPLICATI 9353 [facility] ON OF 9 Y Y OTHER [facility] CAST STRAPPING 43139 [facility] 9 Y Y [facility] STRAPPING 04330 [facility] 9 Y Y [facility] APPLICATI 9353 [facility] ON OF 9 Y Y OTHER [facility] CAST COLLECTIO 33443 Natacha KENDALL, Natacha Victoria VENOUS 8 ENOCH CAROLINA C BLOOD PSC VENIPUNCT URE Encounters Encounter Start End Date Code Location Performer Type Date OFFICE 30015 [facility] OUTPATIEN 7 7 SURGICAL T VISIT ASSOCIATE 15 S [facility] ROBYN - 7 7 [facility] OUTPATIEN [facility] ROBYN - 7 7 [facility] OUTPATIEN INC T OFFICE 60381 [facility] FRYMAN OUTPATIEN 7 7 PHYSICIAN T VISIT S GROUP 15 MINUTES HOSPITAL ROBYN - OTHER 7 7 [facility] INC OFFICE [address] [facility] OUTPATIEN 7 7 [place] T V[facility]IN[facility] 15 PSC MINUTES OFFICE 81197 [facility] STONE OUTPATIEN 7 7 PHYSICIAN T VISIT S GROUP 25 MINUTES HOSPITAL ROBYN - 7 7 [facility] OUTPATIEN INC T EMERGENCY 17502 ROB[facility] 7 7 [facility] DEPARTMEN INC T VISIT LOW/MODER SEVERITY EMERGENCY 15959 OLIVA SPANGLER 7 7 PHYSICIAN DEPARTMEN S, PLLC T VISIT HIGH/URGE NT SEVERITY HOSPITAL ROBYN - 7 7 [facility] OUTPATIEN INC T OFFICE 31809 [facility] OUTPATI[facility] 7 7 MEDICAL T VISIT SERV 25 FOUNDATIO MINUTES [facility] ROBYN - 7 7 [facility] OUTPATIEN INC [facility] ROBYN - 7 7 [facility] OUTPATIEN INC [facility] ROBYN - 7 7 [facility] OUTPATIEN INC T OFFICE 50562 [facility] 7 7 [place] T VISIT CLINIC 25 PSC MINUTES HOSPITAL ROBYN - 7 7 [facility] OUTPATIEN INC T OFFICE 66676 [facility] FR[facility] OUTPATIEN 7 7 PHYSICIAN T VISIT S GROUP 25 MINUTES HOSPITAL ROBYN - 6 6 [facility] OUTPATIEN INC [facility] ROBYN - 6 6 [facility] OUTPATIEN INC [facility] ROBYN - 6 6 [facility] OUTPATIEN INC T OFFICE 88417 [facility] 6 6 [place] JUDY T VISIT CLINIC 15 PSC MINUTES HOSPITAL ROBYN - 6 6 [facility]PATIEN [facility] ROBYN - 6 6 [facility] OUTPATIEN [facility] ROBYN - 6 6 [facility] OUTPATIEN INC T OFFICE 95036 [facility] OUTPATIEN 6 6 PHYSICIAN EUG T VISIT S GROUP 25 MINUTES HOSPITAL ROBYN - OTHER 6 6 [facility] INC OFFICE 42482 [place] [facility] BR[facility] OUTPATIEN 6 6 MEDICAL T VISIT SERV 25 FOUNDATIO MINUTES N OFFICE 90201 [facility] MISHA LIBRADO OUTPATIEN 6 6 PHYSICIAN T VISIT S GROUP 15 MINUTES HOSPITAL ROBYN - 6 6 [facility]PATIEN [facility] ROBYN - 6 6 [facility] - 6 6 [facility] - 6 6 [facility] ROBYN - 6 6 [facility] OUTPATIEN [facility] OFFICE 35649 [facility] OUTPAT[facility]EN 6 6 PHYSICIAN EUG T VISIT S GROUP 15 MINUTES HOSPITAL ROBYN - OTHER 6 6 [facility] ROBYN - 6 6 [facility]IEN [facility] ROBYN - 6 6 [facility] OUTPATIEN [facility] T OFFICE 90518 [place] OUTPATIEN 6 6 [place] JUDY T VISIT CLINIC 15 PSC MINUTES OFFICE 43778 [facility] OUTPATIEN 6 6 PHYSICIAN EUG T NEW 30 S GROUP MINUTES HOSPITAL ROBYN - 6 6 [facility] OUTPATIEN [facility] ROBYN - 6 6 [facility] OUTPATIEN [facility] ROBYN - 6 6 [facility] OUTPATIEN [facility] ROBYN - 6 6 [facility] ROBYN - 5 5 [facility]PATI[facility] - 5 5 [facility]YN - 5 5 [facility] OUTPATIEN [facility] ROBYN - 5 5 [facility] OUTPATIEN [facility] OFFICE 80877 A C FIELD AMB OUTPATIEN 5 5 ENOCH CAROLINA T VISIT 5 PSC MINUTES [facility] ROBYN - 5 5 [facility] ROBYN - 4 4 [facility] OFFICE 91585 A C KILPELA OUTPATIEN 4 4 ENOCH MARTIN T VISIT PSC 15 MINUTES OFFICE 54248 A C KILPELA OUTPATIEN 4 4 ENOCH MARTIN T VISIT PSC 15 MINUTES OFFICE 17757 KILPELA KILPELA OUTPATIEN 4 4 VERONICA MARTIN T VISIT 15 MINUTES OFFICE 51097 [facility] OUTPATIEN 4 4 SURGICAL COL T VISIT ASSOCIATE 15 S MINUTES OFFICE 38716 [facility] OUTPATIEN 4 4 T VISIT 25 MINUTES Emergency ZACHARIAH De Los Santos MD (ER) 3 10:10 3 12:31 [facility] ROBYN - 3 3 [facility] OUTPATIEN [facility] OFFICE 55499 A C KILPELA OUTPATIEN 3 3 ENOCH MARTIN T VISIT PSC 15 MINUTES [facility] ROBYN - 3 3 [facility] OUTPATIEN INC T OFFICE 71918 A C KENDALL A OUTPATIEN 3 3 ENOCH CAROLINA T VISIT 5 PSC MINUTES OFFICE 97419 A C DENI OUTPATIEN 3 3 ENOCH MARTIN T VISIT PSC 25 MINUTES HOSPITAL ROBYN - 3 3 [facility] OUTPATIEN INC T OFFICE 44438 KILPELA KILPELA OUTPATIEN 3 3 JENatacha JEA T VISIT 15 MINUTES OFFICE 53720 KILPELA KILPELA OUTPATIEN 3 3 JEA JEA T VISIT 15 MINUTES OFFICE 24948 ATKINS ATKINS OUTPATIEN 3 3 COL COL T VISIT 15 MINUTES OFFICE 83877 A C KILPELA OUTPATIEN 2 2 ENOCH CAROLINA JEA T VISIT PSC 15 MINUTES OFFICE 16707 KILPELA KILPELA OUTPATIEN 2 2 YOSHINatacha JEA T VISIT 15 MINUTES OFFICE 61278 A C KILPELA OUTPATIEN 2 2 ENOCH MARTIN T VISIT PSC 15 MINUTES HOSPITAL ROB[facility] - 2 2 [facility] OUTPATIEN INC T EMERGENCY 06013 ROBYN 2 2 [facility] DEPARTMEN INC T VISIT LOW/MODER SEVERITY OFFICE 19261 [facility] ATKINS OUTPATIEN 2 2 COL COL T VISIT 15 MINUTES OFFICE 15736 MCDANIELS BRITTNEY MCDANIELS BRITTNEY OUTPATIEN 2 2 T VISIT 25 MINUTES OFFICE 27081 [facility] OUTPATI[facility] 1 1 SURGICAL COL T VISIT ASSOCIATE 15 S MINUTES OFFICE 99216 A C COLTON OUTPATIEN 1 1 ENOCH FRAGOSO T VISIT PSC 15 MINUTES [facility] [place] [address] 1 HOSPITAL OUTPATIEN T EMERGENCY 05007 ROBYN 1 1 [facility] DEPARTMEN INC T VISIT HIGH/URGE NT SEVERITY HOSPITAL ROBYN - 1 1 [facility] 45640 [facility] 1 1 SUR[facility]ICAL COL T VISIT [facility] 15 [facility] - 0 0 [facility] T OFF[facility] 87845 [facility] SUR[facility]ICAL COL T NEW 30 [facility] OFFICE 62881 [facility] OUTPATIEN 0 0 ADULT PATITO T VISIT [facility] ROBYN - 0 0 [facility] OFF[facility] 11309 [facility] OUTPATI[facility] 0 0 ADULT PATITO T NEW 60 [facility] OFFICE 27546 [facility] 0 0 NURSE DON T [facility]ISIT [facility] 40 [facility] UNIVERSIT - 0 0 Y [facility] T OFF[facility] 56365 UNIVERSIT OUTPATI 0 0 Y T VISIT [address] UNIVERSIT - 0 0 Y [facility] UNIVERSIT - 0 0 Y [facility] T OFFICE 46413 NANCY QUILES, OUTPATIEN 0 0 MEDICAL SATHISH D T VISIT SERV 10 [facility] UNIVERSIT - 0 0 Y [facility] ROBYN - 0 0 [facility] UNIVERS[facility] - 0 0 Y [facility] UNIVERS[facility] - 9 9 [facility] 9 9 [facility] 9 9 Y [facility] - 9 9 Y [facility] - 9 9 Y [facility] OFFICE 59683 Natacha MOORE 8 8 ENOCH Daniel VISIT 5 PSC MINUTES OFFICE 44036 Natacha MOORE 8 8 ENOCH Daniel VISIT PSC 15 MINUTES
--- OUTSIDE RECORDS SUMMARY | 2017-02-09 04:02 | External Medical Summary Rpt | CCD ---
Author Author , ANISHA OAKESGENNA Address Unknown Phone [email or web address] Care Team Providers Care Brisket Puller Name Role Phone A Blessing KENDALL MD PSC, A Unavailable Unavailable Blessing KENDALL MD PSC ATKINS, ATKINS Unavailable Unavailable ATKINS COL, ATKINS Unavailable Unavailable COL ATKINS COL, ATKINS Unavailable Unavailable COL SANJIV LJ, Unavailable Unavailable SANJIV LJ SANJIV LJ, Unavailable Unavailable SANJIV LJ DENNIS ALL, DENNIS ALL Unavailable Unavailable BUTROS PATITO, BUTROS Unavailable Unavailable PATITO MARC PAOLO, Unavailable Unavailable MARC PAOLO MARC PAOLO, Unavailable Unavailable MARC PAOLO HERMAN DON, HERMAN Unavailable Unavailable DON [facility] Un[facility] [place]available [place] [facility] [place] [facility] Unavailable Unavailable ASSOCIATES, [facility] FIELD AMB, FIELD AMB Unavailable Unavailable FRYMAN, FRYMAN Unavailable Unavailable FRYMAN EUG, FRYMAN Unavailable Unavailable EUG MALCOLM DEANDRE, MALCOLM Unavailable Unavailable DEANDRE [facility], [facility] Unavailable Unavailable INC [facility], [facility] Unavailable Unavailable [facility] Un[facility] Unavailable INC, [facility] WELL[facility] HANDY, WELLS Unavailable Unavailable HANDY SEBASTIAN ARAMIS, SEBASTIAN Unavailable Unavailable ARAMIS [facility], Unavailable Unavailable [facility] SPANGLER, SPANGLER Unavailable Unavailable [facility], [facility] KILPELA JEA, KILPELA Unavailable Unavailable JEA KILPELA JEA, KILPELA Unavailable Unavailable JEA [facility] NURSE Unavailable Unavailable PRACTITIONER GR, [facility] NURSE PRACTITIONER GR [facility] Un[facility], [facility] Unavailable Unavailable LABORATO, [facility] REBEL, REBEL Unavailable Unavailable REBEL JUDY, REBEL Unavailable Unavailable JUDY KB, KB BARNHART, Unavailable Unavailable SATHISH Romero [facility] Unavailable Unavailable ASSOCIAT, [facility] Unavailable Unavailable CARE [facility], [facility] Unavailable Unavailable PSC, [facility] WILKERSON TER, WILKERSON Unavailable Unavailable TER [facility], Unavailable Unavailable PLL[facility], [facility] COLTON FOUZIA, COLTON Unavailable Unavailable FOUZIA COLTON FOUZIA, COLTON Unavailable Unavailable FOUZIA LIZZY BALL Unavailable Unavailable LIZZY Munroe, LIZZY J Unavailable Unavailable LIZZY WILSON, ESVINI Unavailable Unavailable STEVE [facility] Unavailable Unavailable EQUIP. L, [facility] Unavailable Unavailable EQUIP. L, [facility] L [facility] Un[facility], [facility], Unavailable Unavailable [facility] STONE, STONE Unavailable Unavailable STONE LIBRADO, STONE LIBRADO Unavailable Unavailable [facility] Unavailable Unavailable [facility], [facility] Unavailable Unavailable ASSOCIATES P, [facility] P [facility], Unavailable Unavailable [facility] MCDANIELS, MCDANIELS Unavailable Unavailable MCDANIELS BRITTNEY, MCDANIELS BRITTNEY Unavailable Unavailable MCDANIELS BRITTNEY, MCDANIELS BRITTNEY Unavailable Unavailable JUDITH PILLAI, JUDITH PILLAI Unavailable Unavailable [facility] Unavailable Unavailable KENDALL A, KENDALL A Unavailable Unavailable Natacha KENDALL C, KENDALL, Unavailable Unavailable A C Purpose Continuity of Care Document - 02-03-2008 through 2016 Problems Code Diagnosis DOS Provider Status 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 CHRONIC 11-01-2016 [facility] STAGE 4 SEVERE [id number] STENOSIS 11-01-2016 [facility] DEVC IMPL [facility]OCI[facility] & GRAFT INIT ENC I4891 UNSPECIFIED 10-23-2016 [facility]IAL [facility] FIBRILLATIO INC N Z5181 ENCOUNTER 10-23-2016 [facility] FOR [facility] THERAPEUTIC INC DRUG LEVEL MONITORING Z7901 FARE REGISTER REPAIRER 10-23-2016 [facility] CURRENT USE [facility] OF INC ANTICOAGULA NTS E039 HYPOTHYROID 09-08-2016 [facility] UNSPECIFIED GROUP N189 CHRONIC 09-08-2016 [facility] K[facility]NEY PHYSICIANS DISEASE GROUP UNSPECIFIED N289 DISORDER OF 09-08-2016 [facility] KIDNEY AND PHYSICIANS URETER GROUP UNSPECIFIED Q45154 OTHER LONG 09-08-2016 [facility]M [facility] CURRENT INC DRUG THERAPY R67343 MALIGNANT 08-17-2016 NEW NEOPLASM [place] [facility] PSC RIGHT FEMALE BREAST E19028 FARE REGISTER REPAIRER 08-17-2016 NEW SELECTED [place] ESTROGEN [facility] PSC RECEPTOR MODULATORS E785 HYPERLIPIDE 08-01-2016 [facility] ZANDER PHYSICIANS UNSPECIFIED GROUP I10 ESSENTIAL 08-01-2016 [facility] PRIMARY PHYSICIANS HYPERTENSIO GROUP N L299 PRURITUS 08-01-2016 [facility] UNSPECIFIED PHYSICIANS GROUP I517 CARDIOMEGAL 07-29-2016 [facility] J069 ACUTE UPPER 07-29-2016 [facility] INFECTION UNSPECIFIED R0981 NASAL 07-29-2016 [facility] I129 HYPERTENSIV 07-03-2016 [facility] CKD SERV W/STAGE 1-4 [facility]OUNDATION CKD OR UNS CKD I509 HEART 07-03-2016 [facility] FAILURE SERV UNSPECIFIED [facility]OUNDATION M810 AGE-RELATED 07-03-2016 [facility] OSTEOPOROSI [facility] S W/O CURRNT PATH FX N183 CHRONIC 07-03-2016 [facility] DISEASE [facility] STAGE 3 MODERATE N250 RENAL 07-03-2016 [facility] OSTEODYSTRO SERV PHY [facility] I272 OTHER 06-01-2016 [facility] [place] [facility] PSC HYPERTENSIO N 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 [place] [facility] PSC DISORDER UNSPECIFIED I482 CHRONIC 06-01-2016 NEW [facility] [place] FIBRILLATIO CLINIC PSC N R931 ABNORMAL 06-01-2016 NEW FIND[facility] ON [place] DX [facility] PSC HEART & COR CIRC R0602 SHORTNESS 05-24-2016 [facility] OF BREATH [facility] INC R05 COUGH 02-12-2016 [facility] R079 CHEST PAIN 02-12-2016 [facility] U[facility]PEC[facility]IED [facility] Z23 ENCOUNTER 02-10-2016 NEW FOR [place] IMMUNIZATIO CLINIC [facility] N E8770 FLUID 12-13-2015 [facility] OVERLOAD SERV UNSPECIFIED FOUNDATION H109 UNSPECIFIED 12-06-2015 [facility] PHYS[facility]IANS CONJUNCTIVI GROUP TIS D649 ANEMIA 12-01-2015 [facility] UNSPECIFIED [facility] INC E559 VITAMIN D 12-01-2015 [facility] DEFICIENCY [facility] UNSPECIFIED INC N186 END STAGE 10-27-2015 [facility] Z992 DEPENDENCE 10-27-2015 [facility] H67673 MALIGNANT 08-26-2015 [facility] NEOPLASM UNS SITE UNS FEMALE BREAST J209 ACUTE 05-27-2015 [facility] BRONCHITIS PHYSICIANS UNSPECIFIED GROUP R7881 BACTEREMIA 05-27-2015 [facility] J441 CHRONIC 05-24-2015 [facility] OBSTRUCTIVE PHYSICIANS PULMONARY GROUP DZ W/EXACERBAT ION R0902 HYPOXEMIA 05-24-2015 [facility] J440 COPD WITH 05-21-2015 [facility] ACUTE LOWER [facility] INC RESPIRATORY INFECTION J302 OTHER 02-14-2015 [facility] SEASONAL [facility] ALLERGIC INC RHINITIS R42 DIZZINESS 02-14-2015 [facility] AND [facility] GIDDINESS INC 1749 MALIGNANT 11-17-2014 [facility] NEOPLASM OF BREAST UNSPECIFIED SITE 2330 CARCINOMA 11-16-2014 NEW IN SITU OF [place] [facility] PSC 2724 OTHER AND 11-11-2014 [facility] UNSPECIFIED HOSPITAL HYPERLIPIDE ZANDER 39478 ATRIAL 11-11-2014 [facility] FIBRILLATIO HOSPITAL N 4280 CONGESTIVE 11-11-2014 [facility] FAILURE UNSPECIFIED 490 BRONCHITIS 11-11-2014 [facility] SPECIFIED ACUTE OR CHRONIC 02651 UNSPECIFIED 11-11-2014 [facility] ARTHROPATHY SITE UNSPECIFIED 13246 UNSPECIFIED 11-11-2014 [facility] OSTEOPOROSI S V5869 LONG-TERM 11-11-2014 [facility] (CURRENT) HOSPITAL USE OF OTHER MEDICATIONS 4011 ESSENTIAL 11-03-2014 NEW HYPERTENSIO [place] N, BENIGN [facility]IN[facility] PSC 7823 EDEMA 11-03-2014 NEW [place] [facility] PSC 7852 UNDIAGNOSED 11-03-2014 NEW CARDIAC [place] [facility] 66425 SHORTNESS 11-03-2014 NEW OF BREATH [place] [facility] PSC V5861 LONG-TERM 11-03-2014 NEW (CURRENT) [place] USE OF CLINIC [facility] ANTICOAGULA NTS V6751 F/U EXAM 11-03-2014 NEW FOLLOW CMPL [facility] PSC W/HIGH-RISK MED NEC 85969 LUMP OR 10-07-2014 [facility] MASS IN MEM [facility] BREAST INC 18889 OTHER 10-07-2014 [facility] ABNORMAL [facility] FINDING IMAGING ASS RADIOLOGICA L EXAM BREAST V5883 ENCOUNTER 08-18-2014 Natacha LOPEZ MD [facility] THERAPEUTIC DRUG MONITORING 03076 OTHER 06-09-2014 [facility] NONSPECIFIC MEDICAL ABNORMAL IMAGING ASS FINDING OF LUNG FIELD V4611 DEPENDENCE 06-09-2014 [facility]ICAL RESPIRATOR IMAGING ASS STATUS 07649 ALTERED 06-08-2014 [facility] MENTAL [facility]ICAL STATUS IM[facility]ING ASS V5882 ENCOUNTER 06-08-2014 [facility] FITTING[facility]ADJ [facility] NON-VASCULA R CATHETER NEC 486 PNEUMONIA, 06-04-2014 [facility] ORGANISM MEDICAL UNSPECIFIED IMAGING ASS 29380 HTN CKD UNS 06-03-2014 [facility] W/CKD [facility] STAGE I INC THRU STAGE IV/UNS 12714 CORONARY 06-03-2014 [facility] ATHEROSCLER [facility] OSIS LOWER [place] INC CORONARY ARTERY 4820 PNEUMONIA 06-03-2014 [facility] DUE TO MEM [facility]OS[facility] KLEBSIELLA INC PNEUMONIAE 26556 ACUTE 06-03-2014 [facility] RESPIRATORY [facility] FAILURE INC 5849 ACUTE 06-03-2014 [facility] KIDNEY [facility] FAILURE INC UNSPECIFIED 5854 CHRONIC 06-03-2014 [facility] DISEASE INC STAGE IV (SEVERE) 7862 COUGH 06-03-2014 [facility] 7869 OTH 06-03-2014 [facility] SYMPTOMS MEDICAL INVOLVING IMAGING ASS RESPIRATORY SYSTEM&CHES T [address] UNSPECIFIED 02-22-2014 [facility] VENOUS [facility] INSUFFICIEN INC CY 5939 UNSPECIFIED 02-22-2014 [facility] DISORDER N EMERGENCY OF KIDNEY PHYS AND URETER 7079 CHRONIC 02-22-2014 [facility] ULCER OF MEM HOS[facility] UNSPECIFIED INC SITE 6829 CELLULITIS 01-23-2014 A Blessing KENDALL AND ABSCESS PSC OF UNSPECIFIED SITE 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 4660 ACUTE 09-24-2013 KILPELA JEA BRONCHITIS 57989 OTH COMPS 08-27-2013 [facility] RENAL [facility]ICAL DIALYSIS ASSOCIATES DEVICE IMPLANT&GFT 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 21156 DEHYDRATION 03-30-2013 JUDITH PILLAI 4019 UNSPECIFIED 03-30-2013 [facility] ESSENTIAL [facility] HYPERTENSIO INC N 7804 DIZZINESS 03-30-2013 JUDITH PILLAI AND GIDDINESS 62942 ULCER OF 01-29-2013 [facility] CALF [facility] INC V571 OTHER 01-29-2013 [facility] PHYSICAL [facility] THERAPY INC 48909 NUCLEAR 01-21-2013 [place] [address] DIAB W/O 12-18-2012 A Blessing KENDALL COMP TYPE PSC II/UNS NOT STATED UNCNTRL 2449 UNSPECIFIED 11-11-2012 A Blessing KENDALL MD PSC HYPOTHYROID ISM 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 KILPELA JEA HYPERLIPIDE ZANDER 7295 PAIN IN 05-16-2012 [facility] SOFT [facility] TISSUES OF INC LIMB 94080 SWELLING OF 05-16-2012 MARC LIMB PAOLO 4829 UNSPECIFIED 05-03-2012 KILPELA JEA BACTERIAL PNEUMONIA 4619 ACUTE 02-16-2012 [facility] SINUSITIS, MEM HOSP UNSPECIFIED INC 68076 JAW PAIN 02-16-2012 [facility] INC 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 L SITE 73341 OTHER 07-07-2010 [facility] MALAISE AND HOME MED FATIGUE EQUIP. L 7812 ABNORMALITY 07-07-2010 [facility] OF GAIT HOME MED EQUIP. L 9961 MECH COMP 06-20-2010 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 V7281 PRE-OPERATI 12-07-2009 NEW VE [place] CARDIOVASCU CLINIC PSC LAR EXAMINATION V7283 OTHER 12-01-2009 UNITED SPECIFIED SURGICAL PRE-OPERATI ASSOCIATES VE EXAMINATION 65746 HYPERPARATH 11-30-2009 [facility] ADULT YROIDISM PRIMARY UNSPECIFIED CARE TYLER 5853 CHRONIC 11-05-2009 [facility] KIDNEY [facility] DISEASE INC STAGE III (MODERATE) 586 UNSPECIFIED 11-05-2009 [facility] FAILURE IMAGING ASS 4409 GENERALIZED 11-02-2009 MEANS ADULT AND PRIMARY UNSPECIFIED CARE [facility]YL[facility] ATHEROSCLER OSIS 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 8910 OPEN WOUND 08-12-2009 [facility] LEG&ANK WITHOUT MENTION COMP 4536 VENOUS EMBO 07-22-2009 [facility] VES LOWR EXTREM 8911 OPEN WOUND 07-22-2009 [facility] LEG HOSPITAL AND ANKLE COMPLICATED 90783 COMPLETE 06-07-2009 [place] [facility] RUPTURE OF SERV ROTATOR FOUNDATIO CUFF 42846 ULCER OF 05-27-2009 [facility] LIMB, [facility] UNSPECIFIED 21544 SENILE 05-14-2009 [facility] OSTEOPOROSI MEM HOS[facility] S INC 6959 UNSPECIFIED 05-13-2009 [facility] ERYTHEMATOU S CONDITION 19472 ULCER OF 04-01-2009 [facility] LIMB 4659 ACUTE URIS 02-03-2008 Natacha JO PSC UNSPECIFIED SITE Immunization Name Date Rout CVX Reac Dose Comm Prov Is Faci e tion ent ider Refu lity Give sed n IIV4 10-1 158 LIDD No NEW -20 LE NAFISA VACC 16 JUDY NGTO N SPLI CLIN T IC VIRU PSC S 0.5 ML DOS FOR IM USE Procedures Procedure DOS Code Location Performer Comment DUPLEX 05964 MAY DICKERSON SCAN 7 SURGICAL HEMODIALY ASSOCIATE [facility] G0463 [facility] OUTPATIEN 7 [facility] T CLIN INC INC VISIT ASSESS & MGMT PT PROTHROMB 12611 [facility] IN TIME 7 [facility] H[facility] INC PROTHROMB 76701 [facility] IN TIME 7 [facility] G0463 [facility] OUTPATIEN 7 [facility] CLIN INC INC VISIT ASSESS & [place] [address] ROB[facility] FREE 7 [facility] [place] [address] ROB[facility] THYROID 7 MEM H[facility] STIMULATI INC INC NG HORMONE TSH LIPID 44438 ROB[facility] PANEL 7 [facility] H[facility] INC INC COMPREHEN 33826 ROB[facility] SIVE 7 MEM H[facility] METABOLIC INC INC PANEL BLOOD 21831 ROB[facility] COUNT 7 [facility] COMPLETE INC INC AUTO&AUTO DIFRNTL WBC PROTHROMB 56748 [facility] PHILIPPE IN TIME 7 CLINIC CLINIC LABORATO LABORATO BLOOD 86725 [facility] [place] COUNT 7 CLINIC CLINIC COMPLETE LABORATO LABORATO AUTO&AUTO DIFRNTL WBC COMPREHEN 66837 [facility] [place] SIVE 7 CLINIC CLINIC METABOLIC LABORATO LABORATO PANEL COLLECTIO 27602 [facility] PHILIPPE N VENOUS 7 CLINIC CLINIC BLOOD LABORATO LABORATO VENIPUNCT URE RADIOLOGI 70497 [facility] C 7 [facility] H[facility] EXAMINATI INC INC ON CHEST SINGLE [place]IEW FRONTAL PROTHROMB 88041 ROB[facility] IN TIME 7 MEM H[facility] G0463 [facility] OUTPATIEN 7 MEM H[facility] MEM HOS[facility] T CLIN INC INC VISIT ASSESS & MGMT PT 25 41660 ROBYN ROBYN HYDROXY 7 MEM HOSP [facility]OS[facility] INCLUDES [place] [address] ROBYN ROBYN PARATHORM 7 [facility] HOS[facility] ONE INC INC RENAL 08165 ROBYN ROBYN FUNCTION 7 MEM H[facility]OS[facility] PANEL INC INC COLLECTIO 92384 ROBYN ROBYN N VENOUS 7 MEM HOSP MEM [facility]OS[facility] BLOOD INC INC VENIPUNCT URE BLOOD 94757 [facility] COUNT 7 MEM [facility]OS[facility] COMPLETE INC INC AUTO&AUTO DIFRNTL WBC CALCIUM 22061 ROB[facility] IONIZED 7 MEM HOS[facility]OS[facility] INC INC PROTHROMB 11951 ROBYN CAR[facility] IN TIME 7 MEM [facility] INC INC HOSPITAL G0463 [facility] OUTPATIEN 7 MEM H[facility] MEM [facility]OS[facility] T CLIN INC INC VISIT ASSESS & MGMT PT HOSPITAL G0463 ROBYN ROBYN OUTPATIEN 7 MEM HOSP MEM HOSP T CLIN INC INC VISIT ASSESS & MGMT PT PROTHROMB 56883 ROB[facility] IN TIME 7 [facility] HOS[facility] INC INC PROTHROMB 05071 ROB[facility] IN TIME 7 [facility] MEM HOS[facility] INC INC BLOOD 37591 ROB[facility] COUNT 7 MEM [facility]OS[facility] COMPLETE INC INC AUTO&[place] [address] ROBYN [facility] TROPONIN 7 MEM HOS[facility] QUANTITAT INC INC EMILIA ECHO 13769 ROBYN CAR[facility] TTHRC R-T 7 MEM HOS[facility] 2D INC INC W/WOM-MOD E COMPL SPEC&COLR D CREATINE 15968 ROBYN CAR[facility] KINASE MB 7 [facility] HOS[facility] FRACTION INC INC ONLY COLLECTIO 48089 ROB[facility] N VENOUS 7 [facility] H[facility] BLOOD INC INC VENIPUNCT URE COMPREHEN 66977 [facility] SIVE 7 MEM HOS[facility] MEM HOS[facility] METABOLIC INC INC PANEL LIPID 18673 ROB[facility] PANEL 7 [facility] HOS[facility] INC INC CREATINE 43451 ROBYN ROBYN KINASE 7 [facility] [place] [place] [address] ROB[facility] THYROID 7 MEM H[facility]OS[facility] ST[place]UL[place] [address] ROB[facility] FREE 7 MEM HOSP MEM HOS[facility] THYROXINE INC [facility] G0463 ROB[facility] OUTPATIEN 6 MEM HOSP MEM HOSP T CLIN INC INC VISIT ASSESS & MGMT PT PROTHROMB 83030 ROB[facility] IN TIME 6 [facility]OS[facility] INC INC PROTHROMB 58535 [facility] IN TIME 6 [facility] INC INC HOSPITAL G0463 [facility] OUTPATIEN 6 MEM H[facility] MEM [facility]OS[facility] T CLIN INC INC VISIT ASSESS & MGMT PT PROTHROMB 86843 [facility] IN TIME 6 [facility]OS[facility] INC INC ECG 77825 NEW NEW ROUTINE 6 [facility] [place] ECG CLINIC CLINIC W/LEAST PSC PSC 12 L[facility] G0463 [facility] OUTPATIEN 6 MEM HOS[facility] MEM [facility]OS[facility] T CLIN INC INC VISIT ASSESS & MGMT PT RADIOLOGI 05897 [facility] 6 MEDICAL PAOLO EXAMINATI IMAGING ON CHEST ASS SINGLE VIEW FRONTAL BLOOD 50292 DENAE PHILIPPE COUNT 6 CLINIC CLINIC COMPLETE LABORATO LABORATO AUTO&AUTO DIFRNTL WBC PROTHROMB 02610 DENAE PHILIPPE IN TIME 6 CLINIC CLINIC LABORATO LABORATO ADMINISTR G0008 NEW REBEL ATION OF 6 [place] JUDY INFLUENZA CLINIC VIRUS PSC VACCINE COLLECTIO 25288 [facility] [place] N VENOUS 6 CLINIC CLINIC BLOOD LABORATO LABORATO VENIPUNCT URE COMPREHEN 74329 [facility] [place] SIVE 6 CLINIC CLINIC METABOLIC LABORATO LABORATO PANEL IIV4 VACC 54292 NEW REBEL SPLIT 6 [place] JUDY VIRUS 0.5 CLINIC ML DOS PSC FOR IM USE HOSPITAL G0463 [facility] OUTPATIEN 6 MEM [facility] MEM [facility]OS[facility] T CLIN INC INC VISIT ASSESS & MGMT PT PROTHROMB 88327 ROB[facility] IN TIME 6 [facility]OS[facility] INC INC PROTHROMB 48937 [facility] IN TIME 6 [facility] INC INC HOSPITAL G0463 [facility] OUTPATIEN 6 [facility] T CLIN INC INC VISIT ASSESS & MGMT PT BREAST L8000 [facility] PROS 6 INC INC MASTECTOM Y BRA W/O INTEG PROS FORM [facility] G0463 [facility] OUTPATIEN 6 MEM HOS[facility] MEM HOS[facility] T CLIN INC INC VISIT ASSESS & MGMT PT PROTHROMB 01566 [facility] IN TIME 6 [facility] H[facility] HOS[facility] INC INC PROTHROMB 23685 [facility] IN TIME 6 [facility] H[facility]OS[facility] INC INC BLOOD 12227 ROBYN CARLSON COUNT 6 MEM HOSP MEM HOSP COMPLETE INC INC AUTO&[place] [address] ROBYN CAR[facility] THYROID 6 MEM HOSP MEM HOSP STIMULATI INC INC NG HORMONE TSH LIPID 02666 ROBYN CAR[facility] PANEL 6 MEM HOSP MEM HOSP INC INC COLLECTIO 35643 ROBYN CAR[facility] N VENOUS 6 MEM HOS[facility] [place] [address] ROBYN CARLSON FREE 6 MEM HOSP MEM HOS[facility] THYROXINE INC INC COMPREHEN 89541 [facility] SIVE 6 MEM H[facility]OS[facility] METABOLIC INC INC PANEL CULTURE 05192 ROB[facility] BACTERIAL 6 [facility] H[facility]OS[facility] INC INC QUANTTATI VE COLONY COUNT URINE CREATININ 02915 [facility] E OTHER 6 MEM HOS[facility] MEM [facility]OS[facility] SOURCE INC INC COLLECTIO 07325 ROB[facility] N VENOUS 6 MEM HOS[facility]OS[facility] BLOOD INC INC VENIPUNCT URE RENAL 52174 ROBYN CARLSON FUNCTION 6 MEM HOS[facility]OS[facility] PANEL INC INC URNLS DIP 43456 ROB[facility] CAR[facility] 6 [facility] STICK/TAB INC INC LET REAGENT AUTO [facility] G0463 ROB[facility] OUTPATIEN 6 MEM HOS[facility] MEM HOS[facility] T CLIN INC INC VISIT ASSESS & MGMT PT 25 83587 ROB[facility] HYDROXY 6 MEM HOS[facility]OS[facility] INCLUDES [place] [address] ROBYN [facility] PARATHORM 6 MEM H[facility] ONE INC INC BLOOD 69944 ROB[facility] COUNT 6 [facility] H[facility]OS[facility] COMPLETE INC INC AUTO&AUTO DIFRNTL WBC PROTEIN 95320 ROB[facility] XCPT 6 MEM HOS[facility]OS[facility] REFRACTOM INC INC ETRY SERUM PLASMA/WH L BLD CALCIUM 54509 ROB[facility] IONIZED 6 [facility] HOS[facility]OS[facility] INC INC PROTHROMB 05819 ROBYN CAR[facility] IN TIME 6 [place] [address] ROB[facility] CAR[facility] BLOOD/URI 6 [facility] C ACID INC INC PROTHROMB 38352 ROBYN CARLSON IN TIME 6 [facility] INC INC HOSPITAL G0463 ROBYN CARLSON OUTPATIEN 6 MEM [facility] T CLIN INC INC VISIT ASSESS & MGMT PT DXA BONE 46644 [facility] ALL DENSITY 6 MEDICAL STUDY 1/> IMAGING SITES ASS AXIAL SKEL DUPLEX 66702 [facility] 6 SURGICAL SURGICAL HEMODIALY ASSOCIATE ASSOCIATE [facility] [id number] [facility] OUTPATIEN 6 [facility] VISIT ASSESS & MGMT PT PROTHROMB 36736 [facility] IN TIME 6 [facility] PROTHROMB 30833 [facility] IN TIME 6 [facility] INC 1 25 [id number] [facility] DIHYDROXY 6 [facility] INCLUDES INC INC FRACTIONS IF PERFORMED BLOOD 78531 [facility] COUNT 6 [facility] COMPLETE INC INC AUTO&[place] [address] [facility] THYROXINE 6 [facility] TOTAL [facility] COLLECTIO 25307 [facility] N VENOUS 6 [facility] BLOOD INC INC VENIPUNCT URE COMPREHEN 88179 [facility] SIVE 6 [facility] METABOLIC INC INC PANEL LIPID 47796 [facility] PANEL 6 [place] [address] [facility] THYROID 6 [facility] STIMULATI INC INC [facility] [id number] [facility] OUTPATIEN 6 [facility] INC VISIT ASSESS & MGMT PT PROTHROMB 67236 [facility] IN TIME 6 [facility] INC PROTHROMB 59838 [facility] IN TIME 6 [facility] [id number] [facility] OUTPATIEN 6 [facility] INC VISIT ASSESS & MGMT PT COLLECTIO 24394 [facility] [place] N VENOUS [facility] BLOOD [facility] VENIPUNCT URE BREAST L8000 [facility] 6 INC INC MASTECTOM Y BRA W/O INTEG PROS FORM COMPREHEN 78773 [facility] [place] SIVE 6 [facility] METABOLIC [facility] PANEL BREAST L8030 [facility] PROSTH 6 [facility] INC SILICONE/ EQUAL W/O INTEGRAL ADHES 25 [id number] [place] HYDROXY [facility] INCLUDES [facility]ATO FRACTIONS IF PERFORMED PROTHROMB 05358 [place] IN TIME [facility] BLOOD 81065 [place] COUNT [facility] COMPLETE [facility] LAB[facility]ATO AUTO&AUTO DIFRNTL WBC PROTHROMB 89979 [facility] IN TIME 6 [facility] PROTHROMB 30883 [facility] IN TIME 6 [facility] G0463 [facility] OUTPATIEN 6 [facility] INC VISIT ASSESS & MG[facility] PT HOSP[facility] G0463 [facility] OUTPATIEN 6 [facility] INC VISIT ASSESS & MGMT PT PROTHROMB 75108 [facility] IN TIME 6 [facility] [facility] 6[facility] PH[facility]ICIAN EUG DISCHARGE S GROUP MANAGEMEN T 30 MINUTES SBSQ 94938 [facility] NURSING 6 PHYSICIAN EUG FACILITY S GROUP CARE/DAY E/M STABLE 10 MIN INITIAL 06249 [facility] NURSING 6 PHYSICIAN DEANDRE FACILITY S GROUP CARE/DAY 35 MINUTES HOSPITAL 65270 [facility] 6 PHYSICIAN DEANDRE DAY S GROUP MANAGEMEN T 30 MIN/< SBSQ 15598 [facility] 6 PHYSICIAN EUG CARE/DAY S GROUP 15 MINUTES SBSQ 04005 [facility] 6 PHYSICIAN DEANDRE CARE/DAY S GROUP 15 MINUTES INITIAL 71924 [facility] 6 PHYSICIAN DEANDRE CARE/DAY S GROUP 50 MINUTES RADIOLOGI 30846 [place] DENNIS ALL C 6 MEDICAL EXAMINATI IMAGING ON CHEST ASS SINGLE VIEW FRONTAL PHYSICAL 36315 [facility] THERAPY 5 [facility] EVALUATIO N THERAPEUT 77240 [facility] IC PX 1/> 5 [facility] AREAS EACH 15 MIN EXERCISES EXT BRST L8015 [facility] 5 INC INC GARMNT W/MASTECT FORM POST-MAST ECT NONCOVERE [id number] [facility] ITEM OR [address] [place] [address] HOSPITAL SERVICE IMHISTOCH 01260 [facility] EM/CYTCHM 5 [facility] 1ST CLINIC CLINIC ANTIBODY PSC PSC STAIN PROCEDURE NONCOVERE A9270 [facility] ITEM OR [address] [place] [address] SERVICE ECG 78624 [facility] ROUTINE 5 [facility] ECG CLINIC CLINIC W/LEAST PSC PSC 12 LDS W/I&R DUP-SCAN 13236 [facility] XTR VEINS [address] [place] [address] COMPLETE CLINIC PSC BILATERAL STUDY ECHO 87376 [facility] TTHRC R-T 5 [facility] 2D CLINIC W/WOM-MOD PSC E COMPL SPEC&COLR D RADIOLOGI 69783 [facility] EXAM 5 [place] CHEST 2 CLINIC VIEWS PSC FRONTAL&L ATERAL BX BREAST 58779 [place] MARC W/DEVICE 5 [facility] 1ST IMAGING LESION ASS ULTRASOUN D GUID US BREAST 26980 ROBYN CARLSON UNI REAL 5 [facility] TIME INC INC WITH IMAGE COMPLETE US BREAST 92348 [facility] UNI REAL 5 MEDICAL MEDICAL TIME IMAGING IMAGING WITH ASS ASS IMAGE LIMITED RADIOLOGI 65689 V[place] MARC C 5 [facility] EXAMINATI IMAGING ON CHEST ASS SINGLE VIEW FRONTAL INSERTION 9604 ROB[facility] CARLSON OF 5 [facility] ENDOTRACH INC INC EAL TUBE CONT 9671 ROB[facility] CARLSON INVASIVE 5 [facility] MECH VENT INC INC < [address] [place] [address] [place] MARC HEAD/BRAI 5 [facility] N W/O IMAGING CONTRAST ASS MATERIAL RADIOLOGI 69212 [place] MARC C 5 [facility] EXAMINATI IMAGING ON CHEST ASS SINGLE VIEW FRONTAL RADIOLOGI 31490 [place] MARC C 5 [facility] EXAMINATI IMAGING ON CHEST ASS SINGLE VIEW FRONTAL RADIOLOGI 50969 [place] MARC C 5 [facility] EXAMINATI IMAGING ON CHEST ASS SINGLE VIEW [facility] 25849 A C A C DISCHARGE 4 ENOCH KENDALL MD DAY PSC PSC MANAGEMEN T 30 MIN/< ECG 32424 [facility] ROUTINE 4 [facility] ECG EMERGENCY EMERGENCY W/LEAST PHYS PHYS 12 LDS I&R ONLY INJ J0702 KILPELA KILPELA BETAMETHA 4 JEA JEA SONE ACETATE & PHOSPHATE 3 MG INJECTION J1030 KILPELA KILPELA 4 JEA JEA METHYLPRE DNISOLONE ACETATE 40 MG THERAPEUT 10137 KILPELA KILPELA IC 4 JEA JEA PROPHYLAC TIC/DX INJECTION SUBQ/IM ECG 26001 ROBYN CARLSON ROUTINE 3 [facility] ECG INC INC W/LEAST 12 LDS TRCG ONLY W/O I&R ECG 61136 JUDITH PILLAI ROUTINE 3 ECG W/LEAST 12 LDS I&[place] [address] ROB[facility] CARLS[facility] INFUSION 3 [facility] THERAPY/P INC INC ROPHYLAXI S /DX 1ST TO 1 HR DEBRIDEME 95987 ROBYN CARLSON NT OPEN 3 [facility] WOUND 20 INC INC SQ CM/< DEBRIDEME 97833 ROBYN CARLSON NT OPEN 3 [facility] WOUND INC INC EACH ADDITIONA L 20 SQ CM DEBRIDEME 65024 ROBYN CARLSON NT OPEN 3 [facility] WOUND INC INC EACH ADDITIONA L 20 SQ CM DEBRIDEME 86087 ROBYN CARLSON NT OPEN 3 [facility] WOUND INC INC EACH ADDITIONA L 20 SQ CM DEBRIDEME 12988 ROBYN CARLSON NT OPEN 3 [facility] WOUND INC INC EACH ADDITIONA L 20 SQ CM PHYSICAL 83851 ROBYN CARLSON THERAPY 3 [facility] EVALUATIO INC INC N CATARACT 20427 SANJIV SANJIV REMOVAL 3 LJ LJ INSERTION OF LENS CATARACT 66863 SANJIV SANJIV REMOVAL 3 LJ LJ INSERTION OF LENS DUP-SCAN 75262 ROBYN ROBYN XTR VEINS 3 [facility] INC INC UNILATERA L/LIMITED STUDY DUPLEX 05693 ATKINS ATKINS SCAN 3 COL COL HEMODIALY SIS ACCESS THERAPEUT 33136 A C ARSENIOPECLAUDETTE IC 2 ENOCH [place] JEA PROPHYLAC PSC TIC/DX INJECTION SUBQ/IM INJ J0702 A C A C BETAMETHA 2 ENOCH KENDALL MD SONE PSC PSC ACETATE & PHOSPHATE 3 MG INJECTION J1030 A C KILPELA 2 ENOCH [place] JENatacha METHYLPRE PSC DNISOLONE ACETATE 40 MG INJ J2930 A C DENI METHYLPRD 2 ENOCH [place] JENatacha NISOLONE PSC SODIUM SUCCNAT TO 125 MG INJECTION J0696 A C A C 2 ENOCH KENDALL MD CEFTRIAXO PSC PSC NE SODIUM PER 250 MG THERAPEUT 98898 A C KILPELA IC 2 ENOCH [place] JEA PROPHYLAC PSC TIC/DX INJECTION SUBQ/IM DUPLEX 73071 ATKINS ATKINS SCAN 2 COL COL HEMODIALY SIS ACCESS IAADI 41167 ROBYN CARLSON INFLUENZA 2 [facility] B VIRUS INC INC IAADI 62470 ROBYN CARLSON INFFLUENZ 2 [facility] A A VIRUS INC INC DUPLEX 42796 ATKINS ATKINS SCAN 2 COL COL HEMODIALY SIS ACCESS DUPLEX 15719 [facility] SCAN 1 HEMODIALY RADIOLOGY RADIOLOGY SIS ASSOCIAT ASSOCIAT ACCESS DUPLEX 49896 WAKPALA ATKINS SCAN 1 SURGICAL COL HEMODIALY ASSOCIATE SIS S ACCESS TRLUML [address] ANGIOPLAS TY PERCUTANE OUS VENOUS CATHETER C1887 [facility] GUIDING [address] [place] [address] HOSPITAL PROTHROMB 57393 [facility] IN TIME HOSPITAL HOSPITAL POTASSIUM 93173 [facility] SERUM [address] [place] [address] PLASMA/WH OLE BLOOD GUIDE C1769 [facility] WIRE [address] [place] [address] TRANSLUMI 96875 [facility] NAL [address] [place] [address] BALLOON ANGIOPLAS TY VENOUS RS&I INTRO 30499 [facility] NDL/CATH [address] [place] [address] AV SHUNT IST ACCESS W/ RAD EVAL THRMBC 99843 [facility] PRQ ARVEN [address] [place] [address] FSTL AUTOG/NON AUTOG GRF INJECTION J2250 [address] [place] HCL PER 1 MG INJECTION J3010 [facility] FENTANYL [address] [place] [address] CITRATE 0.1 [place] [address] ROBYN CARLSON BLOOD/URI 1 [facility] C ACID INC INC BLOOD 02111 ROBYN CARLSON COUNT 1 [facility] COMPLETE INC INC AUTO&AUTO DIFRNTL WBC THER 33470 ROBYN CARLSON PROPH/DX 1 [facility] NJX IV INC INC PUSH SINGLE/1S T SBST/DRUG SEDIMENTA 26783 ROBYN CARLSON TION RATE 1 [facility] RBC INC INC NON-AUTOM ATED RADEX 60859 ROBYN CARLSON FOOT 1 [facility] COMPLETE INC INC MINIMUM 3 VIEWS BASIC 59439 ROBYN CARLSON METABOLIC 1 [facility] PANEL INC INC CALCIUM TOTAL PROTHROMB 86249 ROBYN CARLSON IN TIME 1 [facility] INC INC STANDARD K0001 AVIS CORRALES 1 HOME MED HOME MED R EQUIP. L EQUIP. L INTRO 67753 [facility] NDL/CATH [address] [place] [address] AV SHUNT IST ACCESS W/ RAD EVAL PROTHROMB 62502 [facility] IN TIME 1 [facility] POTASSIUM [address] PLASMA/ OLE BLOOD INTRDUCR/ C1894 [facility] SHEATH [address] [place] [address] NOT GUID INTRACARD EP NON-LASR TRLUML [address] ANGIOPLAS TY PERCUTANE OUS VENOUS TRANSLUMI [address] [place] ANGIOPLAS TY VENOUS RS&I CATHETER C17[address] NAL ANGIOPLAS TY NON-LASER GUIDE C17[address] DUPLEX 47345 [facility] ATKINS SCAN 1 SURGICAL COL HEMODIALY ASSOCIATE SIS S ACCESS STANDARD K0001 [facility] MED HOME MED R EQUIP. L EQUIP. L STANDARD K0001 [facility] HOME MED HOME MED R EQUIP. L EQUIP. L STANDARD K0001 [facility] WHEELCHAI 0 HOME MED HOME MED R EQUIP. L EQUIP. L STANDARD K0001 [facility] WHEELCHAI 0 HOME MED HOME MED R EQUIP. L EQUIP. L DUPLEX 93810 [facility] ATKINS SCAN 0 SURGICAL COL HEMODIALY ASSOCIATE SIS S ACCESS STANDARD K0001 [facility] AVIS WHEELCHAI 0 HOME MED HOME MED R EQUIP. L EQUIP. L STANDARD K0001 [facility] AVIS WHEELCHAI 0 HOME MED HOME MED R EQUIP. L EQUIP. L ARTERIOVE 91837 [facility] NOUS [address] [place] [address] ARAMIS ANASTOMOS IS OPEN DIRECT PROTHROMB 97747 [facility] IN TIME [address] [place] [address] HOSPITAL POTASSIUM [address] PLASMA/WH OLE BLOOD ANESTHESI 99986 ANESTHESI EWLLS A 0 A ASSOC HANDY VASCULAR PSC SHUNT/NALINI NT REVISION ECG 44607 [facility] ROUTINE 0 [facility] ECG W/LEAST 12 LDS TRCG ONLY W/O I&R ECG 34732 [facility] ROUTINE 0 [place] ECG CLINIC W/LEAST PSC 12 LDS I&R ONLY VESSEL G0365 WAKPALA ATKINS MAPPING 0 SURGICAL COL OF ASSOCIATE VESSELS [place] [address] ROB[facility] CARLSON BLOOD/URI 0 [facility] C ACID INC INC COLLECTIO 05695 ROBYN CARLSON N VENOUS 0 [facility] BLOOD INC INC VENIPUNCT URE ANTINUCLE 20285 ROBYN ROBYN AR 0 [facility] ANTIBODIE INC INC S GAVI ANTIBODY 03960 ROBYN CARLSON IDENTIFIC 0 [facility] ATION INC INC LEUKOCYTE ANTIBODIE S COMPLEMEN 51584 ROBYN CARLSON T 0 [facility] FUNCTIONA INC INC L ACTIVITY EACH COMPONENT DNA 19847 ROBYN CARLSON ANTIBODY 0 [facility] LOWER ELWHA/[place] [address] ROBYN CARLSON PARATHORM 0 [facility] ONE INC INC PROTEIN 04017 ROBYN CARLSON ELECTROPH 0 [facility] ORETIC INC INC FRACTJ&QU ANTJ SERUM URNLS DIP 27025 ROB[facility] CARLSON 0 [facility] STICK/TAB INC [place] [address] [place] MARC RETROPERI 0 [facility]ICAL [facility] TONEAL IMAGING REAL TIME ASS W/IMAGE COMPLETE RENAL 32383 ROBYN CARLSON FUNCTION 0 [facility] PANEL INC INC STRAPPING 46284 [facility] 0 Y Y [facility] STRAPPING 85361 [facility] 0 Y Y [facility] INJECTION J3301 NANCY QUILES 0 MEDICAL SATHISH Romero TRIAMBRITTANIE SERV LONE FOUNDATIO ACETONIDE NOS 10 MG STRAPPING 77612 [facility] 0 Y Y [facility] STRAPPING 13516 [facility] 0 Y Y [facility] DEBRIDEME 70100 [facility] NT SKIN 9 Y Y [facility]IAL [facility] HOSPITAL THICKNESS EXCISIONA 8622 [facility] [place] L 9 Y Y [facility] NT WOUND INFECTION OR BURN APPLICATI 9353 [facility] ON OF 9 Y Y OTHER [facility] 36377 [facility] 9 Y Y [facility] 47662 [facility] 9 Y Y [facility] APPLICATI 9353 [facility] [place] [place] ON OF 9 Y Y [facility] COLLECT 75476 Natacha MOORE VENOUS 8 ENOCH Funk BLOOD PSC VENIPUNCT URE Encounters Encounter Start End Date Code Location Performer Type Date OFFICE 40832 [facility] 7 7 SURGICAL T VISIT ASSOCIATE 15 S MINUTES HOSPITAL [facility] - 7 7 [facility] OUTPATIEN INC [facility] - 7 7 [facility]PATIEN [facility] ROBYN - OTHER 7 7 [facility] INC OFFICE 29529 [facility] [place] OUTPATIEN 7 7 PHYSICIAN T VISIT S GROUP 15 MINUTES OFFICE 62901 [facility] 7 [facility] 15 PSC MINUTES OFFICE 86163 [facility] OUTPATIEN 7 7 PHYSICIAN T VISIT S GROUP 25 MINUTES HOSPITAL [facility]YN - 7 7 [facility] OUTPATIEN INC T EMERGENCY 75715 [facility] 7 7 [facility] DEPARTMEN INC T VISIT LOW/MODER SEVERITY EMERGENCY 25833 OLIVA SPANGLER 7 7 PHYSICIAN DEPARTMEN S, [facility] T VISIT HIGH/URGE NT SEVERITY HOSPITAL ROBYN - 7 7 [facility] OUTPATIEN INC T OFFICE 96764 [place] [facility] OUTPATIEN 7 7 MEDICAL T VISIT SERV 25 FOUNDATIO MINUTES HOSPITAL ROBYN - 7 7 [facility] - 7 7 [facility] - 7 7 [facility] OFF[facility] [address] [facility] 7 7 [facility] 25 PSC MINUT[facility] OFFICE 70811 [facility] 7 PHYSICIAN T VISIT S GROUP 25 MINUTES HOSPITAL [facility] - 7 7 [facility] - 6 6 [facility] ROBYN - 6 6 [facility] - 6 6 [facility] 51557 [facility] 6 6 [facility] T VISIT CLINIC 15 PSC MINUTES HOSPITAL ROBYN - 6 6 [facility] - 6 6 [facility] - 6 6 [facility] OFF[facility] 34411 [facility] Y[facility]IM[facility] OUTPATIEN 6 6 PHYSICIAN EUG T VISIT S GROUP 25 MINUTES HOSPITAL ROBYN - OTHER 6 6 [facility] OFFICE 90615 [place] ENEDELIA LUGO OUTPATIEN 6 6 MEDICAL T VISIT SERV 25 FOUNDATIO MINUTES OFFICE 54040 [facility] MISHA PAVON OUTPATIEN 6 6 PHYSICIAN T VISIT S GROUP 15 MINUTES HOSPITAL ROBYN - 6 6 [facility] - 6 6 [facility] - 6 6 [facility] - 6 6 [facility] - 6 6 [facility] OFF[facility] 20928 [facility] [place] OUTPATIEN 6 6 PHYSICIAN EUG T VISIT S GROUP 15 MINUTES HOSPITAL ROBYN - OTHER 6 6 [facility] ROBYN - 6 6 [facility] - 6 6 [facility] OFFICE 66926 [facility] OUTPATIEN 6 6 [facility] T VISIT CLINIC 15 PSC MINUTES OFFICE 77187 [facility] OUTPATIEN 6 6 PHYSICIAN EUG T NEW 30 S GROUP [facility] ROBYN - 6 6 [facility] - 6 6 [facility] - 6 6 [facility] - 6 6 [facility] ROBYN - 5 5 [facility] [address] [facility] ROB[facility] - 5 5 [facility] ROBYN - 5 5 [facility] OUTPATIEN [facility] T OFFICE 19685 [facility] ENOCH CAROLINA T VISIT 5 PSC [facility] ROBYN - 5 5 [facility] INPATIENT [facility] ROBYN - 4 4 [facility] INPATIENT [facility] OFFICE 11816 Natacha CHURCHILL 4 4 ENOCH MARTIN T VISIT PSC 15 MINUTES OFFICE 40150 A C KILPELA OUTPATIEN 4 4 ENOCH MARTIN T VISIT PSC 15 MINUTES OFFICE 33284 KILPELA KILPELA OUTPATIEN 4 4 JENatacha JEA T VISIT 15 MINUTES OFFICE 73957 [facility] OUTPATIEN 4 4 SURGICAL COL T VISIT ASSOCIATE 15 S MINUTES OFFICE 54345 MCDANIELS BRITTNEY MCDANIELS BRITTNEY OUTPATIEN 4 4 T VISIT 25 MINUTES HOSPITAL ROBYN - 3 3 [facility] OUTPATIEN INC T OFFICE 67735 A C KILPELA OUTPATIEN 3 3 ENOCH MARTIN T VISIT PSC 15 MINUTES HOSPITAL ROBYN - 3 3 [facility] OUTPATIEN INC T OFFICE 46240 A C KENDALL A OUTPATIEN 3 3 ENOCH CAROLINA T VISIT 5 PSC MINUTES OFFICE 31841 A C KILPELA OUTPATIEN 3 3 ENOCH [place] JENatacha T VISIT PSC 25 MINUTES HOSPITAL ROBYN - 3 3 [facility] OUTPATIEN INC T OFFICE 05646 KILPELA KILPELA OUTPATIEN 3 3 VERONICA JEA T VISIT 15 MINUTES OFFICE 77237 KILPELA KILPELA OUTPATIEN 3 3 JENatacha JEA T VISIT 15 MINUTES OFFICE 54720 [facility] OUTPATIEN 3 3 COL COL T VISIT 15 MINUTES OFFICE 97411 A C KILPELA OUTPATIEN 2 2 ENOCH MARTIN T VISIT PSC 15 MINUTES OFFICE 41664 KILPELA KILPELA OUTPATIEN 2 2 VERONICA MARTIN T VISIT 15 MINUTES OFFICE 54689 A C KILPELA OUTPATIEN 2 2 ENOCH MARTIN T VISIT PSC 15 MINUTES EMERGENCY 97000 ROBYN 2 2 [facility] DEPARTMEN INC T VISIT LOW/MODER SEVERITY HOSPITAL ROBYN - 2 2 [facility] OUTPATIEN [facility] T OFFICE 84843 [facility] 2 2 COL COL T VISIT 15 MINUTES OFFICE 87951 MCDANIELS BRITTNEY MCDANIELS BRITTNEY [facility] 2 2 T VISIT 25 MINUTES OFFICE 61413 [facility] 1 1 SURGICAL COL T VISIT ASSOCIATE 15 S MINUTES OFFICE 09784 Natacha [facility] 1 1 ENOCH FRAGOSO T VISIT [facility] 15 [facility] [address] ROBYN - 1 1 [facility]ERGENC[facility] 52227 ROBYN 1 1 [facility]ISIT HIGH/URGE NT SEVERITY [facility] [address] T OFFICE 55814 REPLACED BY [facility] 1 1 SURGICAL COL T VISIT [facility] 15 S [facility] 0 0 [facility] T OFFICE 30539 [facility] OUTPATIEN 0 0 SURGICAL COL T NEW 30 ASSOCIATE MINUTES S OFFICE 38558 [facility] OUTPATIEN 0 0 ADULT PATITO T VISIT PRIMARY 25 CARE [facility] ROBYN - 0 0 [facility] OFFICE 84792 [facility] OUTPATIEN 0 0 ADULT PATITO T NEW 60 PRIMARY MINUTES [facility] OFFICE 21346 [facility] OUTPATI[facility] 0 0 NURSE DON T VISIT PRACTITIO 40 [address] [facility] UNIVERSIT - 0 0 [facility] T OFFICE 80735 [facility] OUTPATIEN 0 0 Y T VISIT [facility] 40 [facility] UNIVERSIT - [address] [facility] UNIVERSIT - [address] [facility] T OFFICE 10632 NANCY KB, [facility] 0 0 MEDICAL SATHISH D T VISIT SERV [facility] [address] [facility] ROBYN - 0 0 [facility] UN[facility]ERS[facility] - [address] [facility] - [address] [facility] - [address] [facility] - [address] [facility] UNIVERSIT - [address] [facility]ERS[facility] - [address] [facility] T OFFICE 64816 Natacha MOORE 8 8 ENOCH Daniel VISIT 5 PSC MINUTES OFFICE 35319 Natacha MOORE 8 8 ENOCH Daniel VISIT PSC 15 MINUTES
--- OUTSIDE RECORDS SUMMARY | 2017-02-09 04:02 | External Medical Summary Rpt | CCD ---
Author Author , ANISHA OAKESGENNA Address Unknown Phone [email or web address] Care Team Providers Care Medical Assisting Instructor Name Role Phone A Blessing KENDALL MD [...] PAOLO HERMAN DON, HERMAN Unavailable Unavailable DON [facility] Un[facility] [place] [place] [facility] Unavailable Unavailable [facility]OC[facility], [facility] FIELD AMB, FIELD AM[facility] Unavailable Unavailable FRYMAN, FRYMAN Unavailable Unavailable FRYMAN EUG, FRYMAN Unavailable Unavailable EUG MALCOLM DEANDRE, MALCOLM Unavailable Unavailable DEANDRE [facility], [facility] Unavailable Unavailable INC [facility], [facility] Unavailable Unavailable [facility] Un[facility] Unavailable INC, [facility] WELLS HANDY, WELLS Unavailable Unavailable HANDY SEBASTIAN ARAMIS, SEBASTIAN Unavailable Unavailable ARAMIS [facility], Unavailable Unavailable [facility] SPANGLER, SPANGLER Unavailable Unavailable [facility], [facility] KILPELA JEA, KILPELA Unavailable Unavailable JEA KILPELA JEA, KILPELA Unavailable Unavailable JEA [facility] NURSE Unavailable Unavailable PRACTITIONER GR, [facility] NURSE PRACTITIONER GR [facility] REBEL, REBEL Unavailable Unavailable REBEL JUDY, REBEL Unavailable Unavailable JUDY KB, KB BARNHART, Unavailable Unavailable SATHISH Romero [facility] Unavailable Unavailable ASSOCIAT, [facility] Unavailable Unavailable [facility], [facility] Unavailable Unavailable [facility], [facility] WILKERSON TER, WILKERSON Unavailable Unavailable TER [facility] [...] Unavailable Unavailable [facility], [facility], Unavailable Unavailable [facility] STONE, STONE Unavailable Unavailable STONE LIBRADO, STONE LIBRADO Unavailable Unavailable [facility] Unavailable Unavailable [facility], [facility] Unavailable Unavailable ASSOCIATES P, [facility], Unavailable Unavailable [facility] MCDANIELS, MCDANIELS Unavailable Unavailable MCDANIELS BRITTNEY, MCDANIELS BRITTNEY Unavailable Unavailable MCDANIELS BRITTNEY, MCDANIELS BRITTNEY Unavailable Unavailable JUDITH PILLAI, JUDITH PILLAI Unavailable Unavailable 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 [id number] STENOSIS 11-01-2016 [facility] DEVC IMPL [facility]OC[facility] & GRAFT INIT ENC I4891 UNSPECIFIED 10-23-2016 [facility] ATRIAL [facility] FIBRILLATIO INC N Z5181 ENCOUNTER 10-23-2016 [facility] FOR [facility] THERAPEUTIC INC DRUG LEVEL MONITORING Z7901 DECKHAND SHRIMP BOAT 10-23-2016 [facility] CURRENT USE [facility] OF INC ANTICOAGULA NTS E039 HYPOTHYROID 09-08-2016 [facility] ISM PHYSICIANS UNSPECIFIED GROUP N189 CHRONIC 09-08-2016 [facility] KIDNEY PHYSICIANS DISEASE GROUP UNSPECIFIED N289 DISORDER OF 09-08-2016 [facility] KIDNEY AND PHYSICIANS URETER GROUP UNSPECIFIED P73647 OTHER LONG 09-08-2016 [facility] TERM [facility] CURRENT INC DRUG THERAPY C17400 MALIGNANT 08-17-2016 NEW NEOPLASM [facility] UNS SITE CLINIC P[facility] RIGHT FEMALE BREAST C28623 DECKHAND SHRIMP BOAT 08-17-2016 NEW SELECTED [facility] ESTROGEN CLINIC PSC RECEPTOR MODULATORS E785 HYPERLIPIDE 08-01-2016 [facility] ZANDER PHYSICIANS UNSPECIFIED GROUP I10 ESSENTIAL 08-01-2016 [facility] PRIMARY PHYSICIANS HYPERTENSIO GROUP N L299 PRURITUS 08-01-2016 [facility] UNSPECIFIED PHYSICIANS GROUP I517 CARDIOMEGAL 07-29-2016 [facility] J069 ACUTE UPPER 07-29-2016 [facility], RESPIRATORY PLL[facility] INFECTION UNSPECIFIED R0981 NASAL 07-29-2016 [facility] CONGESTION [facility]ICI[facility], PLLC I129 HYPERTENSIV 07-03-2016 [facility] W/STAGE 1-4 [facility] CKD OR UNS CKD I509 HEART 07-03-2016 [facility] FAILURE [facility] UNSPECIFIED [facility]OUNDATION M810 AGE-RELATED 07-03-2016 [facility] OSTEOPOROSI [facility] S W/O CURRNT PATH FX N183 CHRONIC 07-03-2016 [facility] DISEASE [facility] STAGE 3 MODERATE N250 RENAL 07-03-2016 [facility] OSTEODYSTRO SERV PHY [facility] I272 OTHER [...] BREATH [facility] INC R05 COUGH 02-12-2016 [facility] R079 CHEST PAIN 02-12-2016 [facility]PEC[facility] Z23 ENCOUNTER 02-10-2016 NEW FOR [facility] IMMUNIZATIO CLINIC [facility] N E8770 FLUID 12-13-2015 [facility] OVERLOAD SERV UNSPECIFIED FOUNDATION H109 UNSPECIFIED 12-06-2015 [facility] PHYSICIANS CONJUNCTIVI GROUP TIS D649 ANEMIA 12-01-2015 [facility] UNSPECIFIED MEM [facility] INC E559 VITAMIN D 12-01-2015 [facility] DEFICIENCY [facility] UNSPECIFIED INC N186 END STAGE 10-27-2015 [facility] Z992 DEPENDENCE 10-27-2015 [facility] Y58604 MALIGNANT 08-26-2015 [facility] NEOPLASM UNS SITE UNS FEMALE BREAST J209 ACUTE 05-27-2015 [facility] BRONCHITIS PHYSICIANS UNSPECIFIED GROUP R7881 BACTEREMIA 05-27-2015 [facility] GROUP J441 CHRONIC 05-24-2015 [facility] OBSTRUCTIVE PHYSICIANS PULMONARY GROUP DZ W/EXACERBAT ION R0902 HYPOXEMIA 05-24-2015 [facility] J440 COPD WITH 05-21-2015 [facility] ACUTE LOWER [facility] INC RESPIRATORY INFECTION J302 OTHER 02-14-2015 [facility] SEASONAL [facility] ALLERGIC INC RHINITIS R42 DIZZINESS 02-14-2015 [facility] AND [facility] GIDDINESS INC 1749 MALIGNANT 11-17-2014 [facility] NEOPLASM OF BREAST UNSPECIFIED SITE 2330 CARCINOMA 11-16-2014 NEW IN SITU OF [facility] BREAST CLINIC PSC 2724 OTHER AND 11-11-2014 [facility] UNSPECIFIED HOSPITAL HYPERLIPIDE ZANDER 59268 ATRIAL 11-11-2014 [facility] FIBRILLATIO HOSPITAL N 4280 CONGESTIVE 11-11-2014 [facility] FAILURE UNSPECIFIED 490 BRONCHITIS 11-11-2014 [facility] SPECIFIED ACUTE OR CHRONIC 86590 UNSPECIFIED 11-11-2014 [facility] ARTHROPATHY SITE UNSPECIFIED 66627 UNSPECIFIED 11-11-2014 [facility] OSTEOPOROSI S V5869 LONG-TERM 11-11-2014 [facility] (CURRENT) HOSPITAL USE OF OTHER MEDICATIONS 4011 ESSENTIAL 11-03-2014 NEW HYPERTENSIO [facility] N, BENIGN CLINIC PSC 7823 EDEMA 11-03-2014 NEW [facility] PSC 7852 UNDIAGNOSED 11-03-2014 NEW CARDIAC [facility] 39048 SHORTNESS 11-03-2014 NEW OF BREATH [facility] CLINIC PSC V5861 LONG-TERM 11-03-2014 NEW (CURRENT) [facility] USE OF CLINIC [facility] ANTICOAGULA NTS V6751 F/U EXAM 11-03-2014 NEW FOLLOW CMPL [facility] PSC W/HIGH-RISK MED NEC 53631 LUMP OR 10-07-2014 [facility] MASS IN MEM [facility] BREAST INC 13310 OTHER 10-07-2014 [facility] ABNORMAL [facility]ICAL FINDING IMAGING ASS RADIOLOGICA L EXAM BREAST V5883 ENCOUNTER 08-18-2014 Natacha LOPEZ MD [facility] THERAPEUTIC DRUG MONITORING 05477 OTHER 06-09-2014 [facility] NONSPECIFIC MEDICAL ABNORMAL IMAGING ASS FINDING OF LUNG FIELD V4611 DEPENDENCE 06-09-2014 [place] ON MEDICAL RESPIRATOR IMAGING ASS STATUS 70360 ALTERED 06-08-2014 [facility] MENTAL MEDICAL STATUS IMAGING ASS V5882 ENCOUNTER 06-08-2014 [facility] FITTING&ADJ MEDICAL IMAGING ASS NON-VASCULA R CATHETER NEC 486 PNEUMONIA, 06-04-2014 [facility] ORGANISM MEDICAL UNSPECIFIED IMAGING ASS 31598 HTN CKD UNS 06-03-2014 [facility] W/CKD [facility] STAGE I INC THRU STAGE IV/UNS 15362 CORONARY 06-03-2014 [facility] ATHEROSCLER [facility] [place] INC CORONARY ARTERY 4820 PNEUMONIA 06-03-2014 [facility] DUE TO MEM HOSP KLEBSIELLA INC PNEUMONIAE 34026 ACUTE 06-03-2014 [facility] RESPIRATORY [facility] FAILURE INC 5849 ACUTE 06-03-2014 [facility] KIDNEY [facility] FAILURE INC UNSPECIFIED 5854 CHRONIC 06-03-2014 [facility] DISEASE INC STAGE IV (SEVERE) 7862 COUGH 06-03-2014 [facility] 7869 OTH 06-03-2014 [facility] SYMPTOMS MEDICAL INVOLVING IMAGING ASS RESPIRATORY SYSTEM&CHES T 83886 UNSPECIFIED 02-22-2014 [facility] VENOUS [facility] INSUFFICIEN INC CY 5939 UNSPECIFIED 02-22-2014 [facility] DISORDER N EMERGENCY OF KIDNEY PHYS AND URETER 7079 CHRONIC 02-22-2014 [facility] ULCER OF MEM HOSP UNSPECIFIED INC SITE 6829 CELLULITIS 01-23-2014 A Blessing KENDALL AND ABSCESS PSC OF UNSPECIFIED SITE 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 4660 ACUTE 09-24-2013 KILPELA JEA BRONCHITIS 84309 OTH COMPS 08-27-2013 [facility] DUE RENAL SURGICAL DIALYSIS ASSOCIATES DEVICE IMPLANT&GFT 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 13161 DEHYDRATION 03-30-2013 JUDITH PILLAI 4019 UNSPECIFIED 03-30-2013 [facility] ESSENTIAL [facility] HYPERTENSIO INC N 7804 DIZZINESS 03-30-2013 JUDITH PILLAI AND GIDDINESS 22515 ULCER OF 01-29-2013 [facility] CALF [facility] INC V571 OTHER 01-29-2013 [facility] PHYSICAL [facility] THERAPY INC 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 01-21-2013 [place] [address] DIAB W/O 12-18-2012 A Blessing KENDALL COMP TYPE PSC II/UNS NOT STATED UNCNTRL 2449 UNSPECIFIED 11-11-2012 A Blessing KENDALL MD PSC HYPOTHYROID ISM 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 KILPELA JEA HYPERLIPIDE ZANDER 7295 PAIN IN 05-16-2012 [facility] SOFT [facility] TISSUES OF INC LIMB 35785 SWELLING OF 05-16-2012 MARC LIMB PAOLO 4829 UNSPECIFIED 05-03-2012 KILPELA JEA BACTERIAL PNEUMONIA 4619 ACUTE 02-16-2012 [facility] SINUSITIS, MEM HOSP UNSPECIFIED INC 40735 JAW PAIN 02-16-2012 [facility] INC 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 L SITE 30366 OTHER 07-07-2010 [facility] MALAISE AND HOME MED FATIGUE EQUIP. L 7812 ABNORMALITY 07-07-2010 [facility] OF GAIT HOME MED EQUIP. 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 V7281 PRE-OPERATI 12-07-2009 NEW VE [facility] CARDIOVASCU CLINIC PSC LAR EXAMINATION V7283 OTHER 12-01-2009 UNITED SPECIFIED SURGICAL PRE-OPERATI ASSOCIATES VE EXAMINATION 88169 HYPERPARATH 11-30-2009 [facility] ADULT YROIDISM PRIMARY UNSPECIFIED CARE TYLER 5853 CHRONIC 11-05-2009 [facility] KIDNEY [facility] DISEASE INC STAGE III (MODERATE) 586 UNSPECIFIED 11-05-2009 [place] RE[facility]ICAL FAILURE IMAGING ASS 4409 GENERALIZED 11-02-2009 MEANS ADULT AND PRIMARY UNSPECIFIED CARE TYLER ATHEROSCLER OSIS 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 8910 OPEN WOUND 08-12-2009 [facility] LEG&ANK WITHOUT MENTION COMP 4536 VENOUS EMBO 07-22-2009 [facility] SUPERFICIAL VES LOWR EXTREM 8911 OPEN WOUND 07-22-2009 [facility]G HOSPITAL AND ANKLE COMPLICATED 16007 COMPLETE 06-07-2009 [place] [facility] RUPT[facility] OF SERV ROTATOR FOUNDATIO CUFF 39153 ULCER OF 05-27-2009 [facility] LIMB, [facility] UNSPECIFIED 08292 SENILE 05-14-2009 [facility] OSTEOPOROSI MEM [facility]OS[facility] S INC 6959 UNSPECIFIED 05-13-2009 [facility] ERYTHEMATOU S CONDITION 88981 ULCER OF 04-01-2009 [facility] LIMB 4659 ACUTE URIS 02-03-2008 Natacha [...] Procedure DOS Code Location Performer Comment DUPLEX 78746 MAY DICKERSON SCAN 7 SURGICAL HEMODIALY ASSOCIATE [facility] G0463 [facility] OUTPATIEN 7 MEM HOSP MEM [facility] T CLIN INC INC VISIT ASSESS & MGMT PT PROTHROMB 78747 [facility] CARLSON IN TIME [address] [facility] INC INC PROTHROMB 47816 ROBYN CARLSON IN TIME [address] [facility] G0463 ROB[facility] CARLSON OUTPATIEN [address] [facility] T CLIN INC INC VISIT ASSESS & [place] [address] ROBYN CARLSON FREE [address] [facility] [address] ROB[facility] THYROID [address] [facility] STIMULATI INC INC NG HORMONE TSH LIPID 40353 ROB[facility] PANEL [address] [facility] INC INC COMPREHEN 84525 ROB[facility] CAR[facility]ON SIVE [address] [facility] METABOLIC INC INC PANEL BLOOD 43820 ROBYN CARLSON COUNT [address] [facility] COMPLETE INC INC AUTO&AUTO DIFRNTL WBC PROTHROMB 25433 [facility] PHILIPPE IN TIME 7 CLINIC CLINIC LABORATO LABORATO BLOOD 69193 [facility] [place] COUNT 7 CLINIC CLINIC COMPLETE LABORATO LABORATO AUTO&AUTO DIFRNTL WBC COMPREHEN 02755 [facility] [place] SIVE 7 CLINIC CLINIC METABOLIC LABORATO LABORATO PANEL COLLECTIO 57981 [facility] PHILIPPE N VENOUS 7 CLINIC CLINIC BLOOD LABORATO LABORATO VENIPUNCT URE RADIOLOGI 30645 ROB[facility] CARLSON C [address] [facility] EXAMINATI INC INC ON CHEST [place] FRONTAL PROTHROMB 87204 ROBYN CARLSON IN TIME [address] [facility] INC [facility] G0463 [facility] CARLSON OUTPATIEN 7 MEM HOSP MEM HOS[facility] T CLIN INC INC VISIT ASSESS & MGMT PT 25 37237 ROBYN ROBYN HYDROXY 7 MEM HOSP MEM HOSP INCLUDES [place] [address] ROBYN ROBYN PARATHORM 7 MEM HOSP MEM HOS[facility] ONE INC INC RENAL 41090 ROBYN ROBYN FUNCTION 7 MEM HOSP MEM HOSP PANEL INC INC COLLECTIO 02403 ROBYN ROBYN N VENOUS 7 MEM HOSP MEM HOSP BLOOD INC INC VENIPUNCT URE BLOOD 62629 ROB[facility] CAR[facility]ON COUNT 7 MEM HOS[facility] MEM HOSP COMPLETE INC INC AUTO&AUTO DIFRNTL WBC CALCIUM 09911 ROB[facility] CAR[facility] IONIZED 7 MEM HOSP MEM HOS[facility] INC INC PROTHROMB 43581 ROBYN CARLSON IN TIME 7 MEM HOSP MEM HOSP INC INC HOSPITAL G0463 [facility] CARLSON OUTPATIEN 7 MEM H[facility] MEM HOS[facility] T CLIN INC INC VISIT ASSESS & MGMT PT HOSPITAL G0463 ROBYN ROBYN OUTPATIEN 7 MEM HOSP MEM HOSP T CLIN INC INC VISIT ASSESS & MGMT PT PROTHROMB 26972 ROB[facility] CARLSON IN TIME 7 MEM HOS[facility] MEM HOSP INC INC PROTHROMB 42179 ROBYN CARLSON IN TIME 7 MEM HOS[facility] MEM HOSP INC INC BLOOD 30726 ROB[facility] CARLSON COUNT 7 MEM H[facility] MEM HOS[facility] COMPLETE INC INC AUTO&[place] [address] ROB[facility] CARLSON TROPONIN 7 MEM HOSP [facility]OS[facility] QUANTITAT INC INC EMILIA ECHO 25884 ROBYN CARLSON TTHRC R-T 7 MEM HOSP [facility] 2D INC INC W/WOM-MOD E COMPL SPEC&COLR D CREATINE 84357 ROBYN CARLSON KINASE MB 7 MEM HOSP [facility]OS[facility] FRACTION INC INC ONLY COLLECTIO 81140 ROBYN CARLSON N VENOUS 7 MEM HOSP [facility]OS[facility] BLOOD INC INC VENIPUNCT URE COMPREHEN 01809 ROB[facility] CAR[facility]ON SIVE 7 MEM HOSP MEM HOSP METABOLIC INC INC PANEL LIPID 03823 ROB[facility] CAR[facility]ON PANEL 7 MEM HOS[facility] MEM HOSP INC INC CREATINE 23599 ROBYN ROBYN KINASE 7 MEM [facility] [place] [address] ROB[facility] CAR[facility] THYROID 7 MEM HOSP MEM HOSP STIMULAT[place] [address] ROB[facility] CARLSON FREE 7 MEM HOSP MEM HOSP THYROXINE INC [facility] G0463 ROB[facility] CARLSON OUTPATIEN 6 MEM HOSP MEM HOSP T CLIN INC INC VISIT ASSESS & MGMT PT PROTHROMB 36818 ROBYN CARLSON IN TIME 6 MEM HOS[facility] MEM HOSP INC INC PROTHROMB 26076 ROBYN CARLSON IN TIME 6 MEM H[facility] INC INC HOSPITAL G0463 [facility] OUTPATIEN 6 MEM H[facility] MEM [facility]OS[facility] T CLIN INC INC VISIT ASSESS & MGMT PT PROTHROMB 90560 [facility] CARLSON IN TIME 6 MEM HOS[facility]OS[facility] INC INC ECG 14591 NEW NEW ROUTINE 6 [facility] [place] ECG CLINIC CLINIC W/LEAST PSC PSC 12 [facility] G0463 [facility] OUTPATIEN 6 MEM HOS[facility] MEM HOS[facility] T CLIN INC INC VISIT ASSESS & MGMT PT RADIOLOGI 06034 [facility] 6 MEDICAL PAOLO EXAMINATI IMAGING ON CHEST ASS SINGLE [place]IEW FRONTAL BLOOD 58465 [facility] PHILIPPE COUNT 6 CLINIC CLINIC COMPLETE LABORATO LABORATO AUTO&AUTO DIFRNTL WBC PROTHROMB 00373 [facility] PHILIPPE IN TIME 6 CLINIC CLINIC LABORATO LABORATO ADMINISTR G0008 NEW REBEL ATION OF 6 [place] JUDY INFLUENZA CLINIC VIRUS PSC VACCINE COLLECTIO 00988 [facility] [place] N VENOUS 6 CLINIC CLINIC BLOOD LABORATO LABORATO VENIPUNCT URE COMPREHEN 07405 [facility] [place] SIVE 6 CLINIC CLINIC METABOLIC LABORATO LABORATO PANEL IIV4 VACC 32997 NEW REBEL SPLIT 6 [place] JUDY VIRUS 0.5 CLINIC ML DOS PSC FOR IM USE HOSPITAL G0463 [facility] OUTPATIEN 6 MEM HOSP MEM HOSP T CLIN INC INC VISIT ASSESS & MGMT PT PROTHROMB 66843 [facility] CARLSON IN TIME 6 MEM HOS[facility] MEM HOS[facility] INC INC PROTHROMB 94462 ROBYN CARLSON IN TIME 6 MEM HOSP [...] INC VISIT ASSESS & MGMT PT PROTHROMB 72085 ROBYN CARLSON IN TIME 6 MEM HOSP MEM HOSP INC INC PROTHROMB 49290 ROBYN CARLSON IN TIME 6 MEM HOSP MEM HOSP INC INC BLOOD 80156 ROBYN CARLSON COUNT 6 MEM HOS[facility] MEM [facility]OS[facility] COMPLETE INC INC AUTO&[place] [address] ROB[facility] THYROID 6 MEM HOSP MEM HOSP STIMULATI INC INC NG HORMONE TSH LIPID 95195 [facility] PANEL 6 MEM HOS[facility] MEM HOS[facility] INC INC COLLECTIO 23431 ROB[facility] N VENOUS 6 MEM H[facility] [place] [address] ROB[facility] CARLSON FREE 6 MEM HOS[facility]OS[facility] THYROXINE INC INC COMPREHEN 55024 [facility] CAR[facility]ON SIVE 6 MEM H[facility]OS[facility] METABOLIC INC INC PANEL CULTURE 04033 ROB[facility] BACTERIAL 6 MEM H[facility]OS[facility] INC INC QUANTTATI VE COLONY COUNT URINE CREATININ 45628 ROB[facility] CAR[facility]ON E OTHER 6 MEM H[facility] SOURCE INC INC COLLECTIO 21902 ROB[facility] CAR[facility]ON N VENOUS 6 MEM HOS[facility]OS[facility] BLOOD INC INC VENIPUNCT URE RENAL 39806 ROB[facility] CAR[facility]ON FUNCTION 6 MEM HOS[facility]OS[facility] PANEL INC INC URNLS DIP 10300 ROB[facility] CARLSON 6 [facility] H[facility] STICK/TAB INC INC LET REAGENT [facility] G0463 [facility] OUTPATIEN 6 MEM HOS[facility] MEM HOS[facility] T CLIN INC INC VISIT ASSESS & MGMT PT 25 33884 ROB[facility] HYDROXY 6 MEM HOS[facility]OS[facility] INCLUDES [place] [address] ROB[facility] CAR[facility]ON PARATHORM 6 [facility] H[facility] ONE INC INC BLOOD 57687 ROB[facility] CAR[facility]ON COUNT 6 MEM HOS[facility]OS[facility] COMPLETE INC INC AUTO&AUTO DIFRNTL WBC PROTEIN 11434 [facility] XCPT 6 MEM HOS[facility]OS[facility] REFRACTOM INC INC ETRY SERUM PLASMA/WH L BLD CALCIUM 77083 [facility] IONIZED 6 MEM HOS[facility]OS[facility] INC INC PROTHROMB 40245 ROBYN CARLSON IN TIME 6 [place] [address] ROBYN CARLSON BLOOD/URI 6 MEM HOSP [facility]OS[facility] C ACID INC INC PROTHROMB 61975 ROBYN CARLSON IN TIME 6 MEM H[facility] INC INC HOSPITAL G0463 [facility] CAR[facility] OUTPATIEN 6 MEM HOS[facility] MEM [facility]OS[facility] T CLIN INC INC VISIT ASSESS & MGMT PT DXA BONE 48113 [facility] ALL DENSITY 6 MEDICAL STUDY 1/> IMAGING SITES ASS AXIAL SKEL DUPLEX 78909 [facility] 6 SURGICAL SURGICAL HEMODIALY ASSOCIATE ASSOCIATE [facility] G0463 ROBYN CARLSON OUTPATIEN 6 MEM HOSP MEM HOSP T CLIN INC INC VISIT ASSESS & MGMT PT PROTHROMB 41777 ROBYN CARLSON IN TIME 6 MEM HOSP [facility] HOS[facility] INC INC PROTHROMB 13742 ROBYN CARLSON IN TIME [address] [facility] INC INC 1 25 21233 [facility] CAR[facility]ON DIHYDROXY [address] [facility] INCLUDES INC INC FRACTIONS IF PERFORMED BLOOD 64186 ROB[facility] CARLSON COUNT 6 MEM H[facility] COMPLETE INC INC AUTO&[place] [address] ROBYN CAR[facility] THYROXINE 6 MEM HOS[facility] TOTAL INC INC COLLECTIO 63602 [facility] N VENOUS [address] [facility] [address] [facility] BLOOD INC INC VENIPUNCT URE COMPREHEN 67414 ROB[facility] CAR[facility]ON SIVE 6 MEM HOSP [facility] METABOLIC INC INC PANEL LIPID 08564 ROB[facility] CAR[facility]ON PANEL 6 [place] [address] ROB[facility] CAR[facility]ON THYROID [address] [facility] STIMULATI INC INC NG HORMONE TSH [facility] G0463 ROB[facility] CARLSON OUTPATIEN 6 MEM HOSP [facility] T CLIN INC INC VISIT ASSESS & MGMT PT PROTHROMB 52878 [facility] CARLSON IN TIME [address] [facility] INC INC PROTHROMB 21261 [facility] IN TIME [address] [facility] [facility] INC INC HOSPITAL G0463 [facility]ON OUTPATIEN [address] [facility] T CLIN INC INC VISIT ASSESS & MGMT PT COLLECTIO 84807 [facility] [place] N VENOUS 6 CLINIC CLINIC BLOOD LABORATO LABORATO VENIPUNCT URE BREAST L8000 [facility] PROS 6 INC INC MASTECTOM Y BRA W/O INTEG PROS FORM COMPREHEN 82823 [facility] [place] SIVE 6 CLINIC CLINIC METABOLIC LABORATO LABORATO PANEL BREAST L8030 [facility] PROSTH 6 INC INC SILICONE/ EQUAL W/O INTEGRAL ADHES 25 [id number] [place] HYDROXY 6 [facility] INCLUDES LABORATO LABORATO FRACTIONS IF PERFORMED PROTHROMB 09494 [place] IN TIME 6 [facility] BLOOD 38285 [place] COUNT 6 [facility] COMPLETE [facility]O LABORATO AUTO&AUTO DIFRNTL WBC PROTHROMB 16535 [facility] IN TIME [address] [facility] INC INC PROTHROMB [id number] [facility] IN TIME [address] [facility] INC INC HOSPITAL [id number] [facility] OUTPATIEN [address] [facility] [facility] CLIN INC INC VISIT ASSESS & MGMT PT HOSPITAL G0463 [facility] OUTPATIEN 6 [facility]IN INC INC VISIT ASSESS & MGMT PT PROTHROMB 38535 [facility] IN TIME [address] [facility] INC [facility] EUG DISCHARGE S GROUP MANAGEMEN T [address] [facility] NURSING 6 PHYSICIAN EUG FACILITY S GROUP CARE/DAY E/M STABLE 10 MIN INITIAL 78133 [facility] NURSING 6 PHYSICIAN DEANDRE FACILITY S GROUP CARE/DAY 35 MINUTES HOSPITAL 73240 [facility] 6 PHYSICIAN DEANDRE DAY S GROUP MANAGEMEN T 30 MIN/< SBSQ 90559 [facility] 6 PHYSICIAN EUG CARE/DAY S GROUP 15 MINUTES SBSQ 52279 [facility] 6 PHYSICIAN DEANDRE CARE/DAY S GROUP 15 MINUTES INITIAL 73693 [facility] 6 PHYSICIAN DEANDRE CARE/DAY S GROUP 50 MINUTES RADIOLOGI 97599 [place] [facility] 6 MEDICAL EXAMINATI IMAGING ON CHEST ASS SINGLE VIEW FRONTAL PHYSICAL 73174 [facility] THERAPY 5 [facility] EVALUATIO N THERAPEUT 40397 [facility] IC PX 1/> 5 [facility] AREAS EACH 15 MIN EXERCISES EXT BRST L8015 [facility] PROS 5 INC INC GARMNT W/MASTECT FORM POST-MAST ECT NONCOVERE [id number] [facility] ITEM OR [address] [place] [address] HOSPITAL SERVICE IMHISTOCH 77672 [facility] EM/CYTCHM 5 [facility] 1ST CLINIC CLINIC ANTIBODY PSC PSC STAIN PROCEDURE NONCOVERE [id number] [facility] ITEM OR [address] [place] [address] SERVICE ECG 36502 [facility] ROUTINE 5 [facility] ECG CLINIC CLINIC W/LEAST PSC PSC 12 LDS W/I&R DUP-SCAN 49027 [facility] XTR VEINS [address] COMPLETE CLINIC PSC BILATERAL STUDY ECHO 55115 [facility] TTHRC R-T 5 [facility] [facility]IN[facility] W/WOM-MOD PSC E COMPL SPEC&COLR D RADIOLOGI 12127 [facility] EXAM 5 THORSBY CHEST 2 CLINIC VIEWS PSC FRONTAL&L ATERAL BX BREAST 53179 [place] MARC W/DEVICE 5 MEDICAL PAOL[facility] 1ST IMAGING LESION ASS ULTRASOUN D GUID US BREAST 53722 ROBYN CARLSON UNI REAL 5 [facility] TIME INC INC WITH IMAGE COMPLETE US BREAST 97023 [facility] UNI REAL 5 MEDICAL MEDICAL TIME IMAGING IMAGING WITH ASS ASS IMAGE LIMITED RADIOLOGI 76631 [place] M[place] C 5 MEDICAL PAOLO EXAMINATI IMAGING ON CHEST ASS SINGLE VIEW FRONTAL INSERTION 9604 ROBYN CARLSON OF [address] [facility]P ENDOTRACH INC INC EAL TUBE CONT 9671 ROBYN CARLSON INVASIVE [address] [facility] HOSP MECH VENT INC INC < [address] [place] [address] [place] MARC HEAD/BRAI 5 MEDICAL PAOL[facility] N W/O IMAGING CONTRAST ASS MATERIAL RADIOLOGI 75572 [place] M[place] C 5 [facility]ICAL [facility] EXAMINATI IMAGING ON CHEST ASS SINGLE VIEW FRONTAL RADIOLOGI 22565 [place] M[place] C 5 MEDICAL [facility] EXAMINATI IMAGING ON CHEST ASS SINGLE VIEW FRONTAL RADIOLOGI 36991 [place] MARC C 5 MEDICAL [facility] EXAMINATI IMAGING ON CHEST ASS SINGLE VIEW [facility]Y [facility] 67605 A C A C DISCHARGE 4 ENOCH KENDALL MD DAY PSC PSC MANAGEMEN T 30 MIN/< ECG 16243 [facility] R[facility] 4 [facility] ECG EMERGENCY EMERGENCY W/LEAST PHYS PHYS 12 LDS I&R ONLY INJ J0702 KILPELA KILPELA BETAMETHA 4 JEA JEA SONE ACETATE & PHOSPHATE 3 MG INJECTION J1030 KILPELA KILPELA 4 JEA JEA METHYLPRE DNISOLONE ACETATE 40 MG THERAPEUT 00503 KILPELA KILPELA IC 4 JEA JEA PROPHYLAC TIC/DX INJECTION SUBQ/IM ECG 47890 ROBYN CARLSON ROUTINE [address] [facility] ECG INC INC W/LEAST 12 LDS TRCG ONLY W/O I&R ECG 46793 JUDITH PILLAI ROUTINE 3 ECG W/LEAST 12 LDS I&[place] [address] ROBYN CARLSON INFUSION [address] [facility] THERAPY/P INC INC ROPHYLAXI S /DX 1ST TO 1 HR DEBRIDEME 16477 ROBYN CARLSON NT OPEN 3 [facility] WOUND 20 INC INC SQ CM/< DEBRIDEME 65289 ROBYN CARLSON NT OPEN 3 [facility] WOUND INC INC EACH ADDITIONA L 20 SQ CM DEBRIDEME 91219 ROBYN CARLSON NT OPEN 3 [facility] WOUND INC INC EACH ADDITIONA L 20 SQ CM DEBRIDEME 09006 ROBYN CARLSON NT OPEN 3 [facility] WOUND INC INC EACH ADDITIONA L 20 SQ CM DEBRIDEME 06564 ROBYN CARLSON NT OPEN [address] [facility] WOUND INC INC EACH ADDITIONA L 20 SQ CM PHYSICAL 32902 ROBYN CARLSON THERAPY [address] [facility] EVALUATIO INC INC N CATARACT 56345 SANJIV SANJIV REMOVAL 3 LJ LJ INSERTION OF LENS CATARACT 32102 SANJIV SANJIV REMOVAL 3 LJ LJ INSERTION OF LENS DUP-SCAN 07221 ROBYN ROBYN XTR VEINS [address] [facility]OS[facility] INC INC UNILATERA L/LIMITED STUDY DUPLEX 81815 ATKINS ATKINS SCAN 3 COL COL HEMODIALY SIS ACCESS THERAPEUT 75105 A C ARSENIOPECLAUDETTE IC 2 ENOCH CAROLINA [...] PSC NE SODIUM PER 250 MG THERAPEUT 99993 A C KILPELA IC 2 ENOCH [place] JEA PROPHYLAC PSC TIC/DX INJECTION SUBQ/IM DUPLEX 73042 ATKINS ATKINS SCAN 2 COL COL HEMODIALY SIS ACCESS IAADI 63822 ROBYN CARLSON INFLUENZA 2 [facility] B VIRUS INC INC IAADI 99129 ROBYN CARLSON INFFLUENZ 2 [facility] A A VIRUS INC INC DUPLEX 94679 ATKINS ATKINS SCAN 2 COL COL HEMODIALY SIS ACCESS DUPLEX 46312 [facility] SCAN 1 HEMODIALY RADIOLOGY RADIOLOGY SIS ASSOCIAT ASSOCIAT ACCESS DUPLEX 10246 CIBECUE ATKINS SCAN 1 SURGICAL COL HEMODIALY ASSOCIATE SIS S ACCESS TRLUML [address] ANGIOPLAS TY PERCUTANE OUS VENOUS CATHETER C1887 [facility] GUIDING [address] [place] [address] HOSPITAL PROTHROMB 92506 [facility] IN TIME HOSPITAL HOSPITAL POTASSIUM 64231 [facility] SERUM [address] [place] [address] PLASMA/WH OLE BLOOD GUIDE C1769 [facility] WIRE [address] [place] [address] TRANSLUMI 07748 [facility] NAL [address] [place] [address] BALLOON ANGIOPLAS TY VENOUS RS&I INTRO 35033 [facility] NDL/CATH [address] [place] [address] AV SHUNT IST ACCESS W/ RAD EVAL THRMBC 95008 [facility] PRQ ARVEN [address] [place] [address] FSTL AUTOG/NON AUTOG GRF INJECTION J2250 [address] [place] HCL PER 1 MG INJECTION J3010 [facility] FENTANYL [address] [place] [address] CITRATE 0.1 [place] [address] ROBYN CARLSON BLOOD/URI [address] [facility] HOSP C ACID INC INC BLOOD 43673 ROBYN CARLSON COUNT [address] [facility]OSP COMPLETE INC INC AUTO&AUTO DIFRNTL WBC THER 96360 ROBYN CARLSON PROPH/DX 1 [facility] NJX IV INC INC PUSH SINGLE/1S T SBST/DRUG SEDIMENTA 58942 ROBYN CARLSON TION RATE [address] [facility] HOSP RBC INC INC NON-AUTOM ATED RADEX 87261 ROBYN CARLSON FOOT [address] [facility]OSP COMPLETE INC INC MINIMUM 3 VIEWS BASIC 16718 ROBYN CARLSON METABOLIC [address] [facility] HOSP PANEL INC INC CALCIUM TOTAL PROTHROMB 54983 ROBYN CARLSON IN TIME [address] [facility] HOSP INC INC STANDARD K0001 AVIS CORRALES 1 HOME MED HOME MED R EQUIP. L EQUIP. L INTRO 08120 [facility] NDL/CATH [address] [place] [address] AV SHUNT IST ACCESS W/ RAD EVAL PROTHROMB 10972 [facility] IN TIME 1 [facility] HOSPITAL POTASSIUM [address] PLASMA/ OLE BLOOD INTRDUCR/ C1894 [facility] SHEATH [address] [place] [address] NOT GUID INTRACARD EP NON-LASR TRLUML [address] ANGIOPLAS TY PERCUTANE OUS VENOUS TRANSLUMI [address] [place] ANGIOPLAS TY VENOUS RS&I CATHETER C[address] NAL ANGIOPLAS TY NON-LASER GUIDE C[address] DUPLEX 31458 UNITED ATKINS SCAN 1 SURGICAL COL HEMODIALY ASSOCIATE SIS S ACCESS STANDARD K0001 [facility] HOME MED R EQUIP. L EQUIP. L STANDARD K0001 [facility] HOME MED HOME MED R EQUIP. L EQUIP. L STANDARD K0001 AVIS AVIS WHEELCHAI 0 HOME MED HOME MED R EQUIP. L EQUIP. L STANDARD K0001 [facility] WHEELCHAI 0 HOME MED HOME MED R EQUIP. L EQUIP. L DUPLEX 05157 UNITED ATKINS SCAN 0 SURGICAL COL HEMODIALY ASSOCIATE SIS S ACCESS STANDARD K0001 AVIS AVIS WHEELCHAI 0 HOME MED HOME MED R EQUIP. L EQUIP. L STANDARD K0001 [facility] AVIS WHEELCHAI 0 HOME MED HOME MED R EQUIP. L EQUIP. L ARTERIOVE 25336 [facility] NOUS [address] [place] [address] ARAMIS ANASTOMOS IS OPEN DIRECT PROTHROMB 66101 [facility] IN TIME [address] [place] [address] HOSPITAL POTASSIUM [address] PLASMA/WH OLE BLOOD ANESTHESI 19418 ANESTHESI WELLS A 0 A ASSOC HANDY VASCULAR PSC SHUNT/NALINI NT REVISION ECG 13087 [facility] ROUTINE 0 [facility] ECG W/LEAST 12 LDS TRCG ONLY W/O I&R ECG 14261 [facility] J ROUTINE 0 [facility] ECG CLINIC W/LEAST PSC 12 LDS I&R ONLY VESSEL G0365 CIBECUE ATKINS MAPPING 0 SURGICAL COL OF ASSOCIATE VESSELS [place] [address] ROBYN CARLSON BLOOD/URI 0 [facility] C ACID INC INC COLLECTIO 35950 ROBYN CARLSON N VENOUS 0 [facility] BLOOD INC INC VENIPUNCT URE ANTINUCLE 76686 ROBYN ROBYN AR 0 [facility] ANTIBODIE INC INC S GAVI ANTIBODY 55717 ROBYN CARLSON IDENTIFIC 0 [facility] ATION INC INC LEUKOCYTE ANTIBODIE S COMPLEMEN 27558 ROBYN CARLSON T 0 [facility] FUNCTIONA INC INC L ACTIVITY EACH COMPONENT DNA 25049 ROBYN CARLSON ANTIBODY 0 [facility] [place] [address] ROBYN CARLSON PARATHORM 0 [facility] ONE INC INC PROTEIN 09583 ROBYN CARLSON ELECTROPH 0 [facility] ORETIC INC INC FRACTJ&QU ANTJ SERUM URNLS DIP 02308 ROBYN CARLSON 0 [facility] STICK/TAB INC [place] [address] [place] MARC RETROPERI 0 MEDICAL PAOLO TONEAL IMAGING REAL TIME ASS W/IMAGE COMPLETE RENAL 32313 ROBYN CARLSON FUNCTION 0 [facility] PANEL INC INC STRAPPING 12888 [facility] 0 Y Y [facility] STRAPPING 95034 [facility] 0 Y Y [facility] INJECTION J3301 NANCY QUILES 0 MEDICAL SATHISH Romero TRIAMBRITTANIE SERV LONE FOUNDATIO ACETONIDE NOS 10 MG STRAPPING 36838 [facility] 0 Y Y [facility] STRAPPING 90879 [facility] 0 Y Y [facility] DEBRIDEME 97598 [facility] NT SKIN 9 Y Y [facility] HOSPITAL THICKNESS EXCISIONA 8622 [facility] L 9 Y Y [facility] NT WOUND [facility]FECTION OR BURN APPLICATI 9353 [facility] ON OF 9 Y Y OTHER [facility] 81069 [facility] 9 Y Y [facility] 21460 [facility] 9 Y Y [facility] HOSPITAL APPLICATI 9353 [facility] ON OF 9 Y Y [facility] COLLECT 85147 Natacha MOORE VENOUS 8 ENOCH Funk BLOOD PSC VENIPUNCT URE Encounters Encounter Start End Date Code Location Performer Type Date OFFICE 51236 [facility] OUTPATIEN 7 7 SURGICAL T VISIT ASSOCIATE 15 S MINUTES HOSPITAL [facility] - 7 7 [facility] OUTPATIEN INC [facility]YN - 7 7 [facility] ROBYN - OTHER 7 7 [facility] INC OFFICE 52235 [facility] FRYMAN OUTPATIEN 7 7 PHYSICIAN T VISIT S GROUP 15 MINUTES OFFICE 92377 [facility]EN [address] [facility] 15 PSC MINUTES OFFICE 21610 [facility] STONE OUTPATIEN 7 7 PHYSICIAN T VISIT S GROUP 25 MINUTES HOSPITAL ROBYN - 7 7 [facility] OUTPATIEN INC T EMERGENCY 21518 ROB[facility] 7 7 [facility] DEPARTMEN INC T VISIT LOW/MODER SEVERITY EMERGENCY 25899 OLIVA SPANGLER 7 7 PHYSICIAN DEPARTMEN S, [facility] T VISIT HIGH/URGE NT SEVERITY HOSPITAL ROBYN - 7 7 [facility] OUTPATIEN INC T OFFICE 70751 [place] [facility] OUTPATIEN 7 7 MEDICAL T VISIT SERV 25 FOUNDATIO MINUTES HOSPITAL ROBYN - 7 7 [facility] ROBYN - 7 7 [facility] ROBYN - 7 7 [facility] OFFICE [address] [facility] 7 7 [facility] PSC MINUTES [facility] 77012 [facility] PHYSICIAN T VISIT S GROUP 25 MINUTES HOSPITAL ROBYN - 7 7 [facility] ROBYN - 6 6 [facility] OUTPATIEN [facility] ROBYN - 6 6 [facility] OUTPATIEN [facility] ROBYN - 6 6 [facility] OUTPATIEN [facility] OFFICE 08031 [facility]EN 6 6 [facility] VISIT CL[facility] 15 PSC MINUTES HOSPITAL ROBYN - 6 6 [facility]PATIEN [facility] ROBYN - 6 6 [facility]PATIEN [facility]PITAL ROBYN - 6 6 [facility] OFFICE 42313 [facility] YMTIMBO OUTPATIEN 6 6 PHYSICIAN EUG T VISIT S GROUP 25 MINUTES HOSPITAL ROBYN - OTHER 6 6 [facility] OFFICE 61655 [facility] OUTPATIEN 6 6 MEDICAL T VISIT SERV 25 FOUNDATIO MINUTES OFFICE 66850 [facility] MISHA PAVON OUTPATIEN 6 6 PHYSICIAN T VISIT S GROUP 15 MINUTES HOSPITAL ROBYN - 6 6 [facility]ITAL ROBYN - 6 6 [facility] ROBYN - 6 6 [facility]PATI[facility] ROBYN - 6 6 [facility]PAT[facility]PITAL ROBYN - 6 6 [facility] OFFICE 81906 [facility] FRYMAN OUTPATIEN 6 6 PHYSICIAN EUG T VISIT S GROUP 15 MINUTES HOSPITAL ROBYN - OTHER [address] [facility] ROBYN - 6 6 [facility] OUTPATIEN [facility] ROBYN - 6 6 [facility] OUTPATIEN [facility] OFFICE 28576 [facility] OUTPATIEN 6 6 [facility] T VISIT CLINIC [address] [address] [facility] OUTPAT[facility] 6 6 PHYSICIAN EUG T NEW 30 S GROUP [facility] ROBYN - 6 6 [facility] OUTPATIEN [facility] ROBYN - 6 6 [facility] OUTPATIEN [facility] ROBYN - 6 6 [facility]PATIEN [facility] ROBYN - [address] [facility]PATIENT [facility] ROBYN - 5 5 [facility] OUTPATIEN [facility] [address] [facility] - 5 5 [facility]PITAL ROBYN - 5 5 [facility] OUTPATIEN [facility] T OFFICE 80345 [facility] 5 ENOCH CAROLINA T VISIT 5 PSC [facility] ROBYN - [address] [facility] INPATIENT [facility] ROBYN - [address] [facility] INPATIENT [facility] OFFICE 16132 Natacha CHURCHILL 4 4 ENOCH MARTIN T VISIT PSC 15 MINUTES OFFICE 49647 A C KILPELA OUTPATIEN 4 4 ENOCH MARTIN T VISIT PSC 15 MINUTES OFFICE 31877 KILPELA KILPELA OUTPATIEN 4 4 JENatacha JEA T VISIT 15 MINUTES OFFICE 87586 [facility] OUTPATIEN 4 4 SURGICAL COL T VISIT ASSOCIATE 15 S MINUTES OFFICE 61560 MCDANIELS BRITTNEY M[facility]ANIEL[facility] BRITTNEY OUTPATIEN 4 4 T VISIT 25 MINUTES HOSPITAL ROBYN - 3 3 [facility] OUTPATIEN INC T OFFICE 38600 A C KILPELA OUTPATIEN 3 3 ENOCH MARTIN T VISIT PSC 15 MINUTES HOSPITAL ROBYN - 3 3 [facility] OUTPATIEN INC T OFFICE 74778 A C KENDALL A OUTPATIEN 3 3 ENOCH CAROLINA T VISIT 5 PSC MINUTES OFFICE 43503 A C KILPELA OUTPATIEN 3 3 ENOCH CAROLINA JENatacha T VISIT PSC 25 MINUTES HOSPITAL ROBYN - 3 3 [facility] OUTPATIEN INC T OFFICE 23826 KILPELA KILPELA OUTPATIEN 3 3 VERONICA JEA T VISIT 15 MINUTES OFFICE 91473 KILPELA KILPELA OUTPATIEN 3 3 JENatacha JEA T VISIT 15 MINUTES OFFICE 94675 [facility] OUT[facility] 3 3 COL COL T VISIT 15 MINUTES OFFICE 17708 A C KILPELA OUTPATIEN 2 2 ENOCH MARTIN T VISIT PSC 15 MINUTES OFFICE 68213 KILPELA KILPELA OUTPATIEN 2 2 VERONICA MARTIN T VISIT 15 MINUTES OFFICE 19186 A C KILPELA OUTPATIEN 2 2 ENOCH MARTIN T VISIT PSC 15 MINUTES EMERGENCY 29714 ROBYN [address] [facility] DEPARTMEN INC T VISIT LOW/MODER SEVERITY HOSPITAL ROBYN - 2 2 [facility] OUTPATIEN [facility] T OFFICE 29264 [facility] 2 2 COL COL T VISIT 15 MINUTES OFFICE 86128 MCDANIELS BRITTNEY MCDANIELS BRITTNEY [facility] 2 2 T VISIT 25 MINUTES OFFICE 16232 [facility] 1 1 SURGICAL COL T VISIT ASSOCIATE 15 S MINUTES OFFICE 27558 Natacha SEGURA [facility] 1 1 ENOCH FRAGOSO T VISIT [facility] 15 [facility] [address] ROBYN - 1 1 [facility] EMERGENCY 33087 ROBYN [address] [facility] ISS[facility] INC T VISIT HIGH/URGE NT SEVERITY [facility] [address] T OFFICE 09821 [facility] 1 1 SUR[facility]ICAL COL T VISIT [facility] 15 S [facility] - 0 0 [facility] T OFFICE 37745 [facility] OUTPATIEN 0 0 SURGICAL COL T NEW 30 ASSOCIATE MINUTES S OFFICE 47483 [facility] OUTPATIEN 0 0 ADULT PATITO T VISIT PRIMARY 25 CARE [facility] ROBYN - 0 0 [facility] T OFF[facility] 76392 [facility] OUTPATIEN 0 0 ADULT PATITO T NEW 60 PRIMARY MINUTES [facility]ARE [facility] OFFICE 29284 [facility] OUTPATIEN 0 0 NURSE DON T VISIT PRACTITIO [address] [facility] UNIVERSIT - 0 0 [facility] T OFFICE 50358 UN[facility]ERSIT OUTPATIEN 0 0 Y T VISIT [facility] 40 [facility] UNIVERSIT - 0 0 Y [facility] UNIVERSIT - 0 0 Y [facility] T OFF[facility] 26244 NANCY KB, [facility] 0 0 MEDICAL SATHISH D T VISIT SERV 10 [facility] UNIVERSIT - 0 0 Y [facility] ROBYN - 0 0 [facility] UN[facility] - 0 0 Y [facility] UNIVERSIT - 9 9 Y [facility] UNIVERSIT - 9 9 Y [facility] UNIVERSIT - 9 9 Y [facility] UNIVERSIT - 9 9 Y [facility] UNIVERSIT - 9 9 Y [facility] T OFFICE 57229 Natacha MOORE 8 8 ENOCH Daniel VISIT 5 PSC MINUTES OFFICE 54805 Natacha MOORE 8 8 ENOCH Daniel VISIT PSC 15 MINUTES
--- OUTSIDE RECORDS SUMMARY | 2017-02-09 04:03 | External Medical Summary Rpt | CCD ---
Author Author , ANISHA LANCASTER Address Unknown Phone [email or web address] Interventions Immunization Name Date Rout CVX Reac Dose Comm Prov Is Faci e tion ent ider Refu lity Give sed n Infl 10-1 0.5 Hist [facility] No LEXC uenz 3-20 mL oric ROBE ROBE a 16 al Quad Info rmat W/Pr ion es - Sour ce Unsp ecif ied
--- OUTSIDE RECORDS SUMMARY | 2017-02-09 04:03 | External Medical Summary Rpt | CCD ---
Author Author , ANISHA LANCASTER Address Unknown Phone [email or web address] Immunization Name Date Rout CVX Reac Dose Comm Prov Is Faci e tion ent ider Refu lity Give sed n Infl 10-1 0.5 Hist [facility] No LEXC uenz 3-20 mL oric ROBE ROBE a 16 al Quad Info rmat W/Pr ion es - Sour ce Unsp ecif ied
--- OUTSIDE RECORDS SUMMARY | 2017-02-09 04:03 | External Medical Summary Rpt ---
Author Author ANISHA Eliceo, ANISHA [employer] Organization [employer] Address Unknown Phone Unavailable Results INR in Blood by Coagulation assay Observa Value Referen Units Interpr Notes Date tion ce etation Range INR in 0.9 - 1.1 No High Results Jan 17 Blood by informati sent to: 2016 1:00 Coagulati on in Elvis PM on assay source [place] 01/17/17 1514Blank Uri alarcon Pharmacis t recommend ation for Warfarint herapy is: PATIENT INR 2.4 TODAY VIA FINGERSTI CK.RECOMM ENDED PATIENT CONTINUE WITH CURRENT DOSE OF WARFARIN5 MG DAILY AT THIS TIME. WILL FOLLOW UP IN 6 WEEKS. *FOR DETAILED INFORMATI ON-PLEASE REVIEW PROGRESS NOTEI N THE ASSESSMEN TS AND ANTICOAGU LATION CLINIC SECTIONAN TICOAGULA TION CLINIC IN PCI/CLINI [place] REVIEWIND ICATION INR RANGETHER APY FOR DVT, PE, ATRIAL FIB; 2.0 - 3.0PROPHY LAXIS FOR VTETHERAP Y FOR MECHANICA L HEART 2.5 - 3.5VALVE; PREVENTIO N OF SYSTEMICE MBOLISM SECONDARY TO AMI INR in Blood by Coagulation assay Observa Value Referen Units Interpr Notes Date tion ce etation Range IS PATIENT ON ANTICOAGULANTS? Y LIST ANTICOAGULANTS: COUMADIN INR in 0.9 - 1.1 No High INDICATIO Dec 05 Blood by informati N 2016 7:00 Coagulati on in AM on assay source INR data RANGETHER APY FOR DVT, PE, ATRIAL FIB; 2.0 - 3.0PROPHY LAXIS FOR VTETHERAP Y FOR MECHANICA L HEART 2.5 - 3.5VALVE; PREVENTIO N OF SYSTEMICE MBOLISM SECONDARY TO AMI Prothromb 9.4 - SECONDS High No Dec 05 in time 11.8 informati 2016 7:00 (PT) in on in AM Platelet source poor data plasma by Coagulati on assay Basic metabolic panel in Blood Observa Value Referen Units Interpr Notes Date tion ce etation Range Urea 7 - 18 mg/dL High No Dec 05 nitrogen informati 2016 7:00 [Mass/vol on in AM ume] in source Serum or data Plasma Calcium 8.5 - mg/dL Normal No Dec 05 [Mass/vol 10.1 informati 2016 7:00 ume] in on in AM Serum or source Plasma data Chloride 98 - 107 mmoL/L Normal No Dec 05 [Moles/vo informati 2016 7:00 lume] in on in AM Serum or source Plasma data Carbon 21.0 - mmoL/L Normal No Dec 05 dioxide, 32.0 informati 2016 7:00 total on in AM [Moles/vo source lume] in data Serum or Plasma Creatinin 0.55 - mg/dL High No Dec 05 e 1.02 informati 2016 7:00 [Mass/vol on in AM ume] in source Serum or data Plasma Creatinin 50 - 200 ML/MIN Low No Dec 05 e renal informati 2016 7:00 clearance on in AM source predicted data by Cockcroft -Gault formula Estimated 59- ML/MIN Low REFERENCE Dec 05 RANGE: 2016 7:00 glomerula >60 AM r ML/MIN/1. filtratio 73 SQUARE n rate METERSIf (GF this patient is -A merican, then multiply theresult by 1.210. Glucose 74 - 106 mg/dL High No Dec 05 [Mass/vol informati 2016 7:00 ume] in on in AM Serum or source Plasma data Potassium 3.5 - 5.1 mmoL/L Normal No Dec 05 informati 2016 7:00 [Moles/vo on in AM lume] in source Serum or data Plasma Sodium 136 - 145 mmoL/L Normal No Dec 05 [Moles/vo informati 2016 7:00 lume] in on in AM Serum or source Plasma data CBC W Auto Differential panel in Blood Observa Value Referen Units Interpr Notes Date tion ce etation Range Basophils 0 - 0.2 K/MM3 Normal No Dec 05 informati 2016 7:00 [#/volume on in AM ] in source Blood by data Automated count Basophils 0.1 - 2.0 % Normal No Dec 05 /100 informati 2016 7:00 leukocyte on in AM s in source Blood by data Automated count Eosinophi 0.0 - 0.4 K/mm3 Normal No Aug 8 ls informati 2016 7:00 [#/volume on in AM ] in source Blood by data Automated count Eosinophi 0.1 - % Normal No Nov 8 ls/100 12.0 informati 2016 7:00 leukocyte on in AM s in source Blood by data Automated count Granulocy 1.8 - 7.8 K/mm3 Normal No Nov 8 amelia informati 2016 7:00 [#/volume on in AM ] in source Blood by data Automated count Granulocy 37.0 - % Normal No Nov 8 amelia/100 80.0 informati 2016 7:00 leukocyte on in AM s in source Blood by data Automated count Hematocri 37.0 - % Low No Dec 05 t [Volume 47.0 informati 2016 7:00 on in AM Fraction] source of Blood data Hemoglobi 12.2 - g/dL Low No Dec 05 n 16.2 informati 2016 7:00 [Mass/vol on in AM ume] in source Blood data Lymphocyt 0.7 - 4.5 K/mm3 Normal No Dec 05 es informati 2016 7:00 [#/volume on in AM ] in source Unspecifi data ed specimen by Automated count Lymphocyt 10 - 50.0 % Normal No Dec 05 es informati 2016 7:00 [#/volume on in AM ] in source Unspecifi data ed specimen by Automated count Erythrocy 27 - 31.2 pg Normal No Dec 05 te mean informati 2016 7:00 corpuscul on in AM ar source hemoglobi data n [Entitic mass] Erythrocy 31.8 - g/dl Normal No Dec 05 te mean 35.4 informati 2016 7:00 corpuscul on in AM ar source hemoglobi data n concentra tion [Mass/vol ume] by Automated count Erythrocy 82.2 - fl Normal No Dec 05 te mean 97.8 informati 2016 7:00 corpuscul on in AM ar volume source [Entitic data volume] by Automated count Monocytes 0.1 - 1.0 K/mm3 Normal No Nov 8 informati 2016 7:00 [#/volume on in AM ] in source Blood by data Automated count Monocytes 1.7 - 9.3 % Normal No Nov 8 /100 informati 2016 7:00 leukocyte on in AM s in source Blood by data Automated count Platelet 7.4 - fl Low No Nov 8 mean 10.4 informati 2016 7:00 volume on in AM [Entitic source volume] data in Blood by Automated count Platelets 142 - 424 K/mm3 Normal No Dec 05 informati 2016 7:00 [#/volume on in AM ] in source Blood data Erythrocy 4.2 - 5.4 M/mm3 Low No Dec 05 amelia informati 2016 7:00 [#/volume on in AM ] in source Amniotic data fluid Erythrocy 11.5 - % Normal No Dec 05 te 17.5 informati 2016 7:00 distribut on in AM ion width source [Entitic data volume] by Automated count Leukocyte 4.8 - K/MM3 Normal No Dec 05 s 10.8 informati 2016 7:00 [#/volume on in AM ] in source Blood data INR in Blood by Coagulation assay Observa Value Referen Units Interpr Notes Date tion ce etation Range INR in 0.9 - 1.1 No High Results Oct 23 Blood by informati sent to: 2016 Coagulati on in [facility] 10:30 AM on assay source [place] 10/23/16 1550EspLe [place] Pharmacis t recommend ation for Warfarint herapy is: INR BY FINGERSTI CK IS 2.7 TODAY. RECOMMEND CONTINUIN G 5 MG DAILY. FOLLOW-UP IN 6 WEEKS. *FOR DETAILED INFORMATI ON-PLEASE REVIEW PROGRESS NOTEI N THE ASSESSMEN TS AND ANTICOAGU LATION CLINIC SECTIONAN TICOAGULA TION CLINIC IN PCI/CLINI [place] REVIEWIND ICATION INR RANGETHER APY FOR DVT, PE, ATRIAL FIB; 2.0 - 3.0PROPHY LAXIS FOR VTETHERAP Y FOR MECHANICA L HEART 2.5 - 3.5VALVE; PREVENTIO N OF SYSTEMICE MBOLISM SECONDARY TO AMI INR in Blood by Coagulation assay Observa Value Referen Units Interpr Notes Date tion ce etation Range INR in 0.9 - 1.1 No High Results September 27 Blood by informati sent to: 2016 Coagulati on in [facility] 11:20 AM on assay source [place] 09/27/16 1202Blank Uri alarcon Pharmacis t recommend ation for Warfarint herapy is: PATIENT INR 2.8 TODAY VIA FINGERSTI CK.RECOMM ENDED PATIENT CONTINUE WITH WARFARIN 5 MG DAILY ATTHIS TIME. FOR DETAILED INFORMATI ON-PLEASE REVIEW PROGRESS NOTEI N THE ASSESSMEN TS AND ANTICOAGU LATION CLINIC SECTIONAN TICOAGULA TION CLINIC IN PCI/CLINI [place] REVIEWIND ICATION INR RANGETHER APY FOR DVT, PE, ATRIAL FIB; 2.0 - 3.0PROPHY LAXIS FOR VTETHERAP Y FOR MECHANICA L HEART 2.5 - 3.5VALVE; PREVENTIO N OF SYSTEMICE MBOLISM SECONDARY TO AMI
--- OUTSIDE RECORDS SUMMARY | 2017-02-09 04:03 | External Medical Summary Rpt ---
Author Author AINSHA Eliceo, ANISHA Production Organization [employer] Address [...] informati sent to: 2016 Coagulati on in [facility] 10:30 AM on assay source [place] 10/23/16 1550EspLe underwood Pharmacis t recommend ation [...] informati sent to: 2016 Coagulati on in [facility] 11:20 AM on assay source [place] [...]
== END 2017-02-02 13:33 | disposition home or self-care (01) ==
LOC: UTC 11:20
PROC: 2W39X1Z Immobilization of Left Upper Extremity using Splint (ICD-10-PCS; principal; 2017-02-02)
DX: S52.125A Nondisplaced fracture of head of left radius, initial encounter for closed fracture (principal); W01.0XXA Fall on same level from slipping, tripping and stumbling without subsequent striking against object, initial encounter; Y93.9 Activity, unspecified; Y92.002 Bathroom of unspecified non-institutional (private) residence as the place of occurrence of the external cause; Z79.01 Long term (current) use of anticoagulants; Z79.899 Other long term (current) drug therapy; I10 Essential (primary) hypertension; E78.5 Hyperlipidemia, unspecified; I13.2 Hypertensive heart and chronic kidney disease with heart failure and with stage 5 chronic kidney disease, or end stage renal disease; I50.9 Heart failure, unspecified; N18.6 End stage renal disease; Z99.2 Dependence on renal dialysis; E03.9 Hypothyroidism, unspecified; Z85.3 Personal history of malignant neoplasm of breast; I48.91 Unspecified atrial fibrillation

== ENCOUNTER → 2017-02-02 | Outpatient (CLI) | payer MEDICARE, MEDICAID ==
--- NOTE | 2017-02-04 11:33 | RADIOLOGY REPORT PS360 ---
BONE DENSITOMETRY(HIP:LT SPINE COMPARISON: DEXA scan 06/23/2013 HISTORY: Patient is postmenopausal history of fracture as an adult, osteoporosis identified on previous DEXA scan TECHNIQUE: DEXA scanning lumbar spine right hip and left forearm FINDINGS: The areas BMD lumbar spine L1-L4 is 1.005 g centimeters squared and the T score is -1.5. This value stable and unchanged from previous exam. The total BMD right hip is 0.450 g centimeters square with a T score of -4.4 and the right femoral neck is 0.551 g centimeters square with a T score -3.5. The total T score left forearm radius is -6.2 IMPRESSION: Stable osteopenia lumbar spine, a slightly stable T score is osteoporosis range right hip and osteoporosis value left forearm as well, consider follow-up study in one year
== END ==
LOC: RAD 10:40
DX: Z78.0 Asymptomatic menopausal state (principal); Z13.820 Encounter for screening for osteoporosis

== ENCOUNTER → 2017-03-16 | Outpatient (CLI) | payer MEDICARE, MEDICAID ==
--- NOTE | 2017-03-16 17:17 | RADIOLOGY REPORT PS360 ---
ELBOW-LT-2 VIEWS HISTORY: LT ELBOW PAIN Patient Age: 81 years: Female Ordering Physician: DUKE MORENO MD TECHNIQUE: 2 views left elbow COMPARISON :02/02/2017 left elbow FINDINGS The joint effusion hemarthrosis at the left elbow was seen previously and persist noting elevation anterior fat pad. The fracture zone/ line passing through the radial head is more evident today with some resorption along the fracture zone and possibly some slight offset since original. Study. This fracture extends to the articular surface of the radial head with very minor minor cortical step-off here. The fracture then passing on longitudinal/obliquely to the lateral margin of the radial neck. The proximal ulna intact joint. Space well maintained otherwise. Diffuse Atherosclerotic calcification f forearm arteries likely reflecting underlying diabetes. Small stable metallic foreign body seen at the superficial soft tissues at the anterior antecubital region IMPRESSION: ------ Fracture radial head. Extends intra-articular surface Fracture line, fracture zone more evident today a reflecting minimal resorption. Only question additional mild distraction. No significant displacement Little if any little healing evident as of yet
--- NOTE | 2017-03-18 23:06 | RADIOLOGY REPORT PS360 ---
[id number] VIEWS HISTORY: FU FX RT HUMERUS ] fracture proximal humerus Patient Age: 81 years: Female Ordering Physician: DUKE MORENO MD TECHNIQUE: 3 views right shoulder. COMPARISON :Previous right shoulder study a 01/17/2017. FINDINGS: Right humeral neck fracture again evident.. Fracture line is somewhat similar to previous study. Old slightly less evident on today's projection.. Progressive denser callus formation at and inferior to the fracture most evident on the internal rotation view. Formation developing laterally at the proximal humerus. 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 Flattened on glenoid with hypertrophic buttressing extending superiorly. Rotated right humeral head. Widened AC joint again noted with slight elevation of the clavicle again noted. IMPRESSION: Progressive Healing bone about the proximal right humeral neck fracture. . Stable position of fracture elements. Prominent underlying, long-standing chronic deformity of theglenohumeral joint as before .
== END ==
LOC: RAD 12:21
DX: M25.522 Pain in left elbow (principal); S42.201D Unspecified fracture of upper end of right humerus, subsequent encounter for fracture with routine healing